=== PATIENT | female | born 1940 | race Caucasian/White ===

== ENCOUNTER → 2017-01-28 | Day surgery (SDC) | payer OTHER ==
[~2017-01-28] MED LIST: ACETAMINOPHEN/HYDROcodone 325 MG/5 MG TAB ONE; BACITRACIN IM FOR SOLN 50,000 UNIT VIAL ONE; BUPIVACAINE/EPINEPHRINE 0.25% 50 ML VIAL ONE; BUPIVACAINE/EPINEPHRINE 0.25% PF 10 ML VIAL ONE; GENTAMICIN SULFATE 80 MG/2 ML VIAL ONE; KETOROLAC TROMETHAMINE 30 MG/ML (IVP) VIAL IV PUSH ONE; LACTATED RINGER'S 1000 ML INJ 1,000 ML ONE; MEPERIDINE HCL 25 MG/ML VIAL ONE; METO25 PO; MORPHINE SULFATE 4 MG/ML INJ ONE; ONDANSETRON HCL 4 MG/2 ML VIAL IV PUSH ONE; PROPOFOL 100 MG/10 ML INJ IV ONE; SIMV40 PO; SODIUM CHLOR 0.9% 250 ML BAG IV ONE; SODIUM CHLORIDE 0.9% 20 ML VIAL ONE; VANCOMYCIN HCL 1000 MG VIAL ONE; ceFAZolin 2 GM PREMIX 50 ML ONE; ceFAZolin INJ 1,000 MG VIAL ONE
--- NOTE | 2017-01-28 09:12 | TN ---
cc: DANA MIGUEL M.D. DATE OF SURGERY 01/28/2017 PREOPERATIVE DIAGNOSIS Right knee medial compartment severe osteoarthritis, chondromalacia patella. POSTOPERATIVE DIAGNOSIS Right knee medial compartment severe osteoarthritis, chondromalacia patella. PROCEDURE Right knee medial unicondylar arthroplasty, partial patellectomy. SURGEON Mary Ellen Miguel MD ASSESSMENT Hollie Miguel MD COMMENT Tara Kulkarni PA-C SPECIMENS None ESTIMATED BLOOD LOSS Minimal COMPLICATIONS None ANESTHESIA General DRAINS One TOURNIQUET TIME 49 minutes 250 mmHg CONDITION Stable PLAN OF ACTIVITY Per orders. PROCEDURE My ex assistant/program director Adria Miguel MD was present for the entire surgical case. He was medically necessary for the entire case because of the complexity case and to facilitate the performance of the procedure. The MUSIC LEADER at the back table was not a skill set for this case to manipulate the instruments e.g. the multiple different types of soft tissue retractors, trial implants and permanent implants including bone cement. The patient brought into the operating room and had satisfactory general endotracheal anesthesia by Dr. Cuello of the Department of Anesthesia. The right lower extremity was prepped and draped in the usual sterile manner. The extremity was exsanguinated with an Vickey wrap, tourniquet was inflated to 250 mmHg. A small anterior medial exposure to the knee was made. A paramedian capsulotomy was performed. Patient was found to have chondromalacia involving the medial facette of patella. The patient was also found to have a moderate degree of synovitis. The patient also had what appeared to be possible synovial invasion of the articular surfaces. This was involving only the medial compartment and certain degrees of the femoral trochlear groove. The lateral compartment had no evidence of arthritic changes or synovial erosions. A partial patellectomy was performed using an oscillating saw and removing the medial facette of the patella. The remaining portion of the medial meniscus was removed. Using the [employer] unicondylar arthroplasty system, guide was used for a right medial femur to remove the posterior condyle which was approximately 6 mm. A bur was then used to contour the proximal tibia to accept a #1 6.5 mm tibial component. Since the patient was relatively neutral axis, great care was made to keep the patient in a relatively neutral axis. The distal femur was prepared to accept a #1 right medial femoral component. Trial reduction was made. The patient found to have excellent balance in both flexion/extension. All trial us removed and preparation for cementing was made. First, the tibial component was cemented which was a #1, 6.5 mm tibial component. One package of high viscosity bone cement by [employer] was used. Initially the tibial component was cemented by the femoral component which was a #1 right medial femoral component. All excess bone cement was removed. The bone cement was allowed to harden for 13 minutes. Tourniquet was deflated. All bleeders individually coagulated. The knee was irrigated with copious amounts of sterile saline antibiotic solution. The knee was also injected with 0.25% Marcaine with epinephrine to provide postoperative hemostasis and also analgesia. The wound was closed with an eighth inch Hemovac drain. The capsule was repaired using multiple interrupted #2 Tycron sutures, subcuticular tissues closed in layers with 2-0 Vicryl. Skin was approximated with running subcuticular 3-0 Vicryl and Steri-Strips were used and sterile dressings were applied. The patient tolerated the procedure well and arrived in the recovery room in stable and satisfactory condition. MD IVELISSE Gordon/SUSI /8:49 AM /9:02 AM
== END | disposition home or self-care (01) ==
LOC: ESDC 06:01
PROVIDERS: ATTEND Orthopaedic Surgery Orthopaedic Surgery of the Spine
DX: M17.11 Unilateral primary osteoarthritis, right knee (principal); M22.41 Chondromalacia patellae, right knee
CPT/HCPCS: 01400; 27446; C1776; J0690; J1580; J1885; J2175; J2270; J2405; J3010; J3370; J7050; J7120

== ENCOUNTER 2017-07-05 11:42 | Inpatient (IN) | payer OTHER, MEDICARE ==
[~2017-07-05] VITALS: Ht 165.1 cm; Wt 59.0 kg
[2017-07-05] VITALS (13 sets, daily range): BP systolic 125–179; BP diastolic 55–108; PULSE 76–110; RESP 14–24; TEMP 99.9–100.2; O2SAT 94–100
[~2017-07-05 11:42] MED LIST changes: -ACETAMINOPHEN/HYDROcodone 325 MG/5 MG TAB ONE; -BACITRACIN IM FOR SOLN 50,000 UNIT VIAL ONE; -BUPIVACAINE/EPINEPHRINE 0.25% 50 ML VIAL ONE; -BUPIVACAINE/EPINEPHRINE 0.25% PF 10 ML VIAL ONE; -GENTAMICIN SULFATE 80 MG/2 ML VIAL ONE; -KETOROLAC TROMETHAMINE 30 MG/ML (IVP) VIAL IV PUSH ONE; -LACTATED RINGER'S 1000 ML INJ 1,000 ML ONE; -MEPERIDINE HCL 25 MG/ML VIAL ONE; -MORPHINE SULFATE 4 MG/ML INJ ONE; -ONDANSETRON HCL 4 MG/2 ML VIAL IV PUSH ONE; -PROPOFOL 100 MG/10 ML INJ IV ONE; -SODIUM CHLOR 0.9% 250 ML BAG IV ONE; -SODIUM CHLORIDE 0.9% 20 ML VIAL ONE; -VANCOMYCIN HCL 1000 MG VIAL ONE; -ceFAZolin 2 GM PREMIX 50 ML ONE; -ceFAZolin INJ 1,000 MG VIAL ONE
[2017-07-05] MEDS ORDERED: SODIUM CHLOR 0.9% 1000 ML INJ 1,000 ML IV ONE (11:45)
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
--- NOTE | 2017-07-05 12:13 | RADRPT ---
EXAM DATE/TIME: 07/05/2017 11:58 [facility] COMPARISON: No previous studies available for comparison. INDICATIONS : Change mental status left side weakness. RADIATION DOSE: 52.13 CTDIvol (mGy) This report was called by 1210. MEDICAL HISTORY : Hypertension. SURGICAL HISTORY : Hysterectomy. Right knee ENCOUNTER: Initial ACUITY: 1 day PAIN SCALE: Non-responsive LOCATION: cranial TECHNIQUE: Multiple contiguous axial images were obtained of the head. Using automated exposure control and adj ustment of the mA and/or kV according to patient size, radiation dose was kept as low as reasonably a chievable to obtain optimal diagnostic quality images. DICOM format image data is available electro nically for review and comparison. FINDINGS: The study is abnormal. There is the very prominent cisterna magna or perhaps an arachnoid cyst in th e posterior fossa. The supratentorial brain shows moderate atrophy without acute infarct or hemorrhage. There is mild c entral and cortical atrophy. There are no extra-axial fluid collections appreciated. CONCLUSION: Negative for infarct or hemorrhage. Martinez Adame MD FACR on July 05, 2017 at 12:09 Board Certified Radiologist. This report was verified electronically.
[2017-07-05 12:15] LABS: I-STAT POTASSIUM 4.8 MMOL/L (3.5-4.9)
[2017-07-05 12:16] LABS: AUTOMATED NEUTROPHIL # 10.3 TH/MM3 (1.8-7.7); BASOPHIL # 0.1 TH/MM3 (0-0.2); BASOPHIL % 0.6 % (0.0-2.0); EOSINOPHIL # 0.1 TH/MM3 (0-0.4); EOSINOPHIL % 0.7 % (0.0-4.0); HEMATOCRIT 38.3 % (35.0-46.0); HEMO FLAGS DIFF FINAL; LYMPH % 9.6 % (9.0-44.0); LYMPHOCYTE # 1.2 TH/MM3 (1.0-4.8); MEAN CELL VOLUME 88.8 FL (80.0-100.0); MEAN CORPUSCULAR HGB CONC 32.6 % (32.0-36.0); MONO % 5.2 % (0.0-8.0); NEUT % 83.9 % (16.0-70.0); PLATELET COUNT 492 TH/MM3 (150-450); RED BLOOD COUNT 4.32 MIL/MM3 (4.00-5.30); RED CELL DISTRIBUTION WIDTH 18.3 % (11.6-17.2); WHITE BLOOD COUNT 12.2 TH/MM3 (4.0-11.0)
[2017-07-05] MEDS ORDERED: PROPOFOL 1000 MG/100 ML INJ 100 ML ONE (12:22)
[2017-07-05 12:31] LABS: APTT (PATIENT) 25.8 SEC (24.3-30.1); PROTHROMBIN TIME - PATIENT 11.4 SEC (9.8-11.6)
--- NOTE | 2017-07-05 13:05 | RADRPT ---
EXAM DATE/TIME: 07/05/2017 12:24 [facility] COMPARISON: CHEST SINGLE AP, August 28, 2016, 22:39. INDICATIONS : Stroke alert. MEDICAL HISTORY : Hypercholesterolemia. Hypertension SURGICAL HISTORY : Hysterectomy. right knee surgery ENCOUNTER: Initial ACUITY: 1 day PAIN SCORE: Non-responsive. LOCATION: Bilateral upper chest FINDINGS: ET tube in good position. Lungs are clear. The heart and pulmonary vascularity are normal. The porti on of the bony skeleton visualized is unremarkable. CONCLUSION: ET tube in good position. Martinez Adame MD FACR on July 05, 2017 at 13:03 Board Certified Radiologist. This report was verified electronically.
[2017-07-05 13:08] LABS: BACTERIA, URINE MOD /hpf; BLOOD, URINE TRACE (NEG); GLUCOSE,URINE NEG (NEG); KETONE, URINE NEG (NEG); MUCUS URINE FEW /lpf (OCC); NITRITE,URINE POS (NEG); URINE COLOR YELLOW (YELLW/STRAW)
[2017-07-05] MEDS ORDERED: PROPOFOL 1000 MG/100 ML INJ 100 ML IV SCH (13:13)
[2017-07-05] MEDS ORDERED: MAGNESIUM SULFATE INJ 2 GM in SODIUM CHLORIDE 0.9% INJ 96 ML IV PRN (13:15)
[2017-07-05] MEDS ORDERED: ONDANSETRON HCL 4 MG/2 ML VIAL IV PRN (13:15)
[2017-07-05] MEDS ORDERED: RESP: ALBUTEROL 2.5 MG/IPRATROPIUM 0.5 MG NEB (PRN) INH (13:15)
[2017-07-05] MEDS ORDERED: POTASSIUM PHOSPHATE MONOBASIC 500 MG TAB PO PRN (13:15)
[2017-07-05] MEDS ORDERED: POTASSIUM CHLOR 20 MEQ PREMIX 100 ML IV PRN (13:15)
[2017-07-05] MEDS ORDERED: MISCELLANEOUS NURSING INFORMATION XX SCH (13:15)
[2017-07-05] MEDS ORDERED: MAGNESIUM SULFATE INJ 4 GM in SODIUM CHLORIDE 0.9% INJ 92 ML IV PRN (13:15)
[2017-07-05] MEDS ORDERED: MAGNESIUM OXIDE 400 MG TAB PO PRN (13:15)
[2017-07-05] MEDS ORDERED: CHLORHEXIDINE GLUCONATE 2 % 1 PACK (2 CLOTHS) TOP PRN (13:15)
[2017-07-05] MEDS ORDERED: SODIUM PHOSPHATE INJ 30 MMOL in SODIUM CHLOR 0.9% 250 ML INJ 240 ML IV PRN (13:15)
[2017-07-05] MEDS ORDERED: POTASSIUM PHOSPHATE MONOBASIC 500 MG TAB PO/TUBE PRN (13:15)
[2017-07-05] MEDS ORDERED: DEXTROSE 50% IN WATER 50 ML VIAL(D50) IV PUSH PRN (13:15)
[2017-07-05] MEDS ORDERED: POTASSIUM PHOSPHATE INJ 30 MMOL in SODIUM CHLOR 0.9% 250 ML INJ 250 ML IV PRN (13:15)
[2017-07-05] MEDS ORDERED: MIDAZOLAM HCL 5 MG/ML VIAL (1 ML) ONE (13:26)
[2017-07-05] MEDS ORDERED: MIDAZOLAM HCL 5 MG/5 ML VIAL IV PUSH ONE (13:30)
[2017-07-05] MEDS ORDERED: METO25TA3 PO (13:34)
[2017-07-05] MEDS ORDERED: OMEP20TA PO (13:34)
[2017-07-05] MEDS ORDERED: SIMV40TA PO (13:34)
[2017-07-05] MEDS ORDERED: MIDAZOLAM 100 MG/100 ML INJ 100 ML IV PRN (13:37)
[2017-07-05] MEDS ORDERED: IOHEXOL 350 MG/ML 10 ML VIAL (for RAD DIAG) IVCONTRAST ONE (14:14)
[2017-07-05 14:25] LABS: BLOOD GAS BASE EXCESS 1.4 mmol/L (-2-2); BLOOD GAS CARBOXYHEMOGLOBIN 1.1 % (0-4); BLOOD GAS HCO3 24 mmol/L (22-26); BLOOD GAS METHEMOGLOBIN 0.7 % (0-2); BLOOD GAS O2 HGB SATURATION 99 % (90-100); BLOOD GAS OXYGEN CONTENT 16.7 Vol % (12.0-20.0); BLOOD GAS PCO2 31 mmHg (38-42); BLOOD GAS PO2 433 mmHG (61-120); BLOOD GAS TOTAL HGB 11.3 G/DL (12.0-16.0); CRITICAL VALUE NO; OXYGEN DEVICE VENTILATOR; TEMP CORR TO 98.6
[2017-07-05 14:26] LABS: DRAW SITE RT RADIAL; FIO2 100 %; NUMBER OF ARTERIAL PUNCTURES 1; STAT NO; ULNAR PULSE PRESENT; VENT SETTINGS AC/RR14/VT550/PEEP5
--- NOTE | 2017-07-05 14:27 | MB ---
cc: GILMER TAN M.D. DATE OF CONSULTATION: 07/05/2017 HISTORY OF PRESENT ILLNESS The patient is a 77-year-old woman with an acute neurologic syndrome. A Stroke Alert was called. I spoke to Dr. Noel around 11:20 or 11:30. The onset of the symptoms is unclear but at about 8:42 she was normal this morning and about an hour later the patient was documented to have some neurological deficits. She came to the emergency room with a history of the left arm being flaccid initially, but she improved by the time she arrived in the ED. Nevertheless, she was dysarthric versus aphasic initially and a history could not be obtained promptly. She was taken to CT scan which was negative for any acute event. The patient has a large cisterna magna. She was back from CT and noted to have some rigidity, stiffness and even possible seizures involving the right-sided limbs. She was intubated at that point. They felt she was a possible candidate for intervention/TPA. At that point the family had been reached and Dr. Noel obtained a consent for TPA which is being given by the time I saw the patient in the emergency room. NEUROLOGICAL EXAMINATION The exam shows that the patient is now partially sedated, somewhat restless, moving all four extremities to stimulation, perhaps moving the right arm less than the left. The plantar responses are extensor bilaterally, perhaps right more promptly than left. The pupils are about the same, 3-4 mm and at least mildly reactive. She has relatively brief reflexes throughout. The eyes were in midline position. She is not following commands. She takes a baby aspirin and apparently takes a statin and metoprolol. No history of strokes or TIAs. IMAGING CT brain discussed above. LABORATORY Platelet count 492, WBC 12.2, hemoglobin 12.5. Sodium 136, glucose 189, BUN and creatinine normal. ASSESSMENT AND PLAN Acute cerebrovascular event. The exact anatomy is uncertain as the patient apparently started having symptoms involving the left arm and then had either severe dysarthria or aphasia and eventually as discussed above had some right-sided rigidity or even seizure-like activity. We felt TPA was reasonable and she was within the 4-1/2-hour span and TPA was initiated. I have discussed with the family member at the bedside and the patient is a possible candidate for intervention/embolectomy and we will obtain a CTA angio. The CT angio was actually attempted earlier but she did not have good venous access and the procedure was discontinued. I will follow the neurological course. Thank you for asking us to assist in her care. MD SILVIO Quinn/BT /1:40 PM /2:54 PM
[2017-07-05] MEDS: SODIUM CHLOR 0.9% 1000 ML INJ 1,000 ML IV SCH ×2 (15:00→23:00)
--- NOTE | 2017-07-05 15:12 | RADRPT ---
EXAM DATE/TIME: 07/05/2017 14:05 [facility] COMPARISON: CT BRAIN W/O CONTRAST, July 05, 2017, 11:58. INDICATIONS : Stroke alert, left sided weakness and altered mental status today. IV CONTRAST: 80 cc Omnipaque 350 (iohexol) IV RADIATION DOSE: 14.87 CTDIvol (mGy) MEDICAL HISTORY : Hypertension. SURGICAL HISTORY : Hysterectomy. ENCOUNTER: Initial ACUITY: 1 day PAIN SCALE: Non-responsive LOCATION: Bilateral head TECHNIQUE: Volumetric scanning was performed using a multi-row detector CT scanner. The data was post processed with a variety of visualization algorithms including full volume maximum intensity projection, multi -planar sliding thin slab reformation, curved planar reformation, and surface rendering techniques. Using automated exposure control and adjustment of the mA and/or kV according to patient size, radiat ion dose was kept as low as reasonably achievable to obtain optimal diagnostic quality images. DICO M format image data is available electronically for review and comparison. FINDINGS: There is complete occlusion of the left middle cerebral artery beyond the first temporal branch. The right middle cerebral artery and anterior cerebral arteries are patent. Examination of the posterior fossa demonstrates the left vertebral artery to be dominant. No aneurysm or vascular malformation is seen and no intracranial stenosis is identified. CONCLUSION: 1. 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 The patient is to undergo cerebral angiogra phy Stevie Valles MD on July 05, 2017 at 14:50 Board Certified Radiologist. This report was verified electronically.
[2017-07-05] MEDS ORDERED: MISCELLANEOUS NURSING INFORMATION XX PRN (15:15)
[2017-07-05] MEDS ORDERED: ALTEPLASE DRIP IV ONE (15:15)
[2017-07-05] MEDS ORDERED: SODIUM CHLORIDE 0.9% 50 ML BAG IVF ONE (15:15)
[2017-07-05] MEDS ORDERED: ALTEPLASE BOLUS 9 MG/9 ML SYR IV ONE (15:15)
[2017-07-05] MEDS ORDERED: VERAPAMIL HCL 5 MG/2 ML VIAL ONE (15:23)
--- NOTE | 2017-07-05 15:49 | RADRPT ---
EXAM DATE/TIME: 07/05/2017 14:05 [facility] COMPARISON: No previous studies available for comparison. INDICATIONS : Stroke alert, left sided weakness and altered mental status today. IV CONTRAST: 80 cc Omnipaque 350 (iohexol) IV RADIATION DOSE: 14.87 CTDIvol (mGy) MEDICAL HISTORY : Hypertension. SURGICAL HISTORY : Hysterectomy. ENCOUNTER: Initial ACUITY: 1 day PAIN SCALE: Non-responsive LOCATION: Bilateral neck Elevated flow velocities and ICA/CCA ratios have been found to correlate with increased degrees of vessel stenosis, calculated as percentage of diameter relative to a normal segment of distal ICA/CCA. TECHNIQUE: Volumetric scanning was performed using a multirow detector CT scanner. The data was post processed with a variety of visualization algorithms including full-volume maximum intensity projection, multip lanar sliding thin-slab reformation, curved-planar reformation, and surface-rendering techniques. Us ing automated exposure control and adjustment of the mA and/or kV according to patient size, radiatio n dose was kept as low as reasonably achievable to obtain optimal diagnostic quality images. DICOM f ormat image data is available electronically for review and comparison. FINDINGS: AORTIC ARCH: The thoracic aorta is tortuous and unwound. The left carotid arises from the non-artery. RIGHT CAROTID: Moderate calcification is seen at the origin of the right internal carotid without compromising the l umen by less than 50%. LEFT CAROTID: The left common carotid is intact. Calcification is seen at the origin of the left internal carotid and not felt to be significant. VERTEBRALS: The vertebral arteries have a symmetric diameter. No stenotic lesions are seen. CONCLUSION: Moderate calcification is present without evidence for hemodynamically significant st enosis. Martinez Adame MD FACR on July 05, 2017 at 15:45 Board Certified Radiologist. This report was verified electronically.
[2017-07-05] MEDS ORDERED: PROPOFOL 1000 MG/100 ML IV PRN (16:00)
--- NOTE | 2017-07-05 17:01 | RADRPT ---
EXAM DATE/TIME: 07/05/2017 15:07 This report includes an Addendum and supersedes previous reports for this exam. [facility] COMPARISON: No previous studies available for comparison. INDICATIONS : Patient who presents to ER with slurred speech. MEDICAL HISTORY : 1. TIA 2. HTN 3. high cholestrol SURGICAL HISTORY : 1. Hysterectomy ENCOUNTER: Initial ACUITY: 1 day PAIN SCORE: 0/10 FLUORO TIME: 11.2 minutes IMAGE SERIES: 6 ACCESS SITE: Right Femoral artery CONTRAST: 110 cc Visipaque (iodixanol) DEVICE(S): 1.) Right common femoral artery syvek Anesthesia and pain control was provided by the Anesthesia department. PROCEDURE : 1. Ultrasound-guided puncture of the access site. 2. Conscious sedation with continuous EKG and Oximetry monitoring. 3. Angiography of the left common carotid artery 4. Angiography of the right common carotid artery The risks, benefits and alternatives to the procedure were explained and verbal and written consent w as obtained. The site was prepped in sterile fashion. Full sterile technique was used, including ca p, mask, sterile gloves and gown and a large sterile sheet. Hand hygiene and 2% chlorhexidine and/or betadine/alcohol prep was utilized per protocol for cutaneous antisepsis. The skin and subcutaneous tissues were infiltrated with local anesthetic solution. With ultrasound and fluoroscopic guidance the selected artery was punctured and a vascular sheath was placed The patient 2 catheter was used to gain access to the left common carotid artery and AP, lateral and oblique runs were performed. The same catheter was then used to access the right common carotid arter y where similar runs were performed. The examination demonstrated normal right middle cerebral artery. On the left side there is a very sh ort and tortuous M2 segment accounting for the finding seen at CT angiography. No vessel thrombosis i dentified. The puncture site was closed with manual pressure and hemostasis was obtained. The patient tolerated the procedure well and there were no complications. Conscious sedation was performed with the prescribed dosages and duration as above in the presence of an independent trained radiology nurse to assist in the monitoring of the patient. EKG and oximetry remained stable throughout the procedure. CONCLUSION: 1. No evidence of vessel occlusion. Asymmetric no cerebral arteries as above Stevie Valles MD on July 05, 2017 at 16:58 Board Certified Radiologist. This report was verified electronically. ADDENDUM: Stenosis measurement is not required for the purposes of this study Stevie Valles MD on July 13, 2017 at 16:12 Board Certified Radiologist. This report was verified electronically.
[2017-07-05] MEDS: fentaNYL DRIP 250 ML IV PRN (17:24)
--- NOTE | 2017-07-05 17:39 | PD.RAD ---
Post Procedure Progress Note Pre Procedure Diagnosis: (1) Dysarthria Post Procedure Diagnosis: (1) Dysarthria Procedure Date: Jul 05, 2017 Supervising Radiologist: Stevie Valles Proceduralist/Assist: RT Teresa(R)() Anesthesia: General Plan of Activity Patient to Unit: Critical Care Patient Condition: Poor See PACS Report for procedural detail/treatment Vascular-Arterial Procedure Procedure 1 Procedure Site: Cerebral Procedure(s): Angiogram Procedure 3 Procedure Site: Right Leg Access Access Site(s): Right Femoral Artery Closure Site(s): Right manual pressure Vascular-Venous Procedure Procedure 1 Procedure Site: Right Leg Access Access Site(s): Right Femoral Vein Findings: central liner placement Stevie Valles MD Jul 05, 2017 17:39
[2017-07-05] MEDS: INSULIN NovoLIN REGULAR SUPPLEMENTAL SCALE SQ SCH (18:00)
[2017-07-05] MEDS: CHLORHEXIDINE 0.12% (ORAL KIT) 15 ML CUP MT SCH (20:00)
[2017-07-05] MEDS: DOCUSATE SODIUM 50 MG/SENNA 8.6 MG TAB PO SCH (20:14)
[2017-07-05] MEDS: RESP: ALBUTEROL 2.5 MG/IPRATROPIUM 0.5 MG NEB (SCH) INH (20:14)
[2017-07-05] MEDS: FAMOTIDINE 20 MG/2 ML VIAL IV PUSH SCH (20:14)
--- NOTE | 2017-07-05 20:26 | HHI.HP ---
HPI Service Critical Care Medicine Primary Care Physician Unknown Admission Diagnosis CVA, dysarthria, altered mental status Diagnosis: Chief Complaint: weakness Travel History International Travel<30 Days: No Contact w/Intl Traveler <30 Da: No Traveled to Known Affected Are: No History of Present Illness This is a 77-year-old female with a history of hypertension and hypercholesterolemia who presented to the emergency department as a stroke alert. When I evaluated the patient she was artery intubated and sedated and no additional information is obtainable from her. Per chart review and my discussions with the emergency department physician, apparently she was noted at 10 AM to suddenly to become confused and have slurred speech. Initially she was not able move her left upper extremity, but in the emergency department she was noted to be moving her left upper extremity. She continued to have dysarthria. Noncontrasted head CT demonstrated no acute head bleed and she was given IV TPA after discussion of risks and benefits in the emergency department. She then underwent CT angiography which demonstrated a flow void in the left MCA. She was then taken emergently to interventional radiology, but no evidence of thrombus was seen in order to perform mechanical thrombectomy. She arrives today surgical ICU in critical condition, intubated, sedated. Review of Systems ROS Limitations: Clinical Condition, Intubated, Altered Mental Status Past Family Social History Allergies: Coded Allergies: No Known Allergies (Unverified , 08/28/16) Past Medical History Unobtainable from the patient due to her clinical condition. Per chart review: Hypertension Hypercholesterolemia Past Surgical History Unobtainable from the patient due to her clinical condition. Per chart review: Hysterectomy Reported Medications Complete home medication list is unobtainable due to the clinical condition of the patient. Per chart review: Simvastatin 40 mg (Simvastatin) 40 Mg Tab 1 Tab PO HS Metoprolol Tartrate 25 mg (Metoprolol Tartrate) 25 Mg Tab 25 Mg PO BID Active Ordered Medications See MAR Family History Unable to obtain secondary to clinical condition the patient. Social History Unable to be obtained secondary to the clinical condition the patient. Per chart review: Denied tobacco, EtOH, drugs of abuse. Physical Exam Vital Signs Vital Signs Date Time Temp Pulse Resp B/P (MAP) Pulse Ox O2 Delivery O2 Flow Rate FiO2 07/05/17 18:00 81 07/05/17 18:00 81 07/05/17 17:25 07/05/17 16:45 98 Mechanical Ventilator 40 07/05/17 16:45 40 07/05/17 16:45 90 07/05/17 16:45 90 07/05/17 16:45 99.9 90 14 178/98 (124) 99 07/05/17 15:30 100 100 07/05/17 15:16 97 14 161/85 (110) 98 Ventilator 07/05/17 15:15 98 Ventilator 07/05/17 15:15 98 Ventilator 07/05/17 14:54 98 40 07/05/17 13:14 100 07/05/17 12:43 88 14 179/108 (131) 100 Ventilator 07/05/17 12:20 98 100 07/05/17 11:46 110 24 140/93 (109) 94 Physical Exam GENERAL: Elderly female, in distress, intubated, sedated HEENT: Normocephalic. Atraumatic. Pupils equal, round, reactive, conjugate. Mucous membranes are moist NECK: Trachea is midline. There is no JVD. CHEST: Equal chest rise. FiO2 40%. Clear to auscultation. CARDIOVASCULAR: Normal rate, regular rhythm. Blood pressure 160 systolic. ABDOMEN: Soft, nontender, nondistended. No guarding. MUSCULOSKELETAL: Pulses 2+. No peripheral edema. NEUROLOGICAL: RASS -3. Sedated with Versed and fentanyl. Localizes the left upper extremity. Flaccid in the right upper extremity. Withdrawals and bilateral lower extremities. Laboratory Laboratory Tests Test 07/05/17 12:00 07/05/17 12:38 07/05/17 13:10 07/05/17 17:45 White Blood Count 12.2 Red Blood Count 4.32 Hemoglobin 12.5 Bedside Hemoglobin 13.6 Hematocrit 38.3 Bedside Hematocrit 40.0 Mean Corpuscular Volume 88.8 Mean Corpuscular Hemoglobin 29.0 Mean Corpuscular Hemoglobin Concent 32.6 Red Cell Distribution Width 18.3 Platelet Count 492 Mean Platelet Volume 7.7 Neutrophils (%) (Auto) 83.9 Lymphocytes (%) (Auto) 9.6 Monocytes (%) (Auto) 5.2 Eosinophils (%) (Auto) 0.7 Basophils (%) (Auto) 0.6 Neutrophils # (Auto) 10.3 Lymphocytes # (Auto) 1.2 Monocytes # (Auto) 0.6 Eosinophils # (Auto) 0.1 Basophils # (Auto) 0.1 CBC Comment DIFF FINAL Differential Comment Prothrombin Time 11.4 Prothromb Time International Ratio 1.0 Activated Partial Thromboplast Time 25.8 Fibrinogen 432 Bedside Sodium 136 Bedside Potassium 4.8 Bedside Chloride 100 Bedside Blood Urea Nitrogen 21 Bedside Creatinine 0.7 Bedside Glucose 189 Total Creatine Kinase 74 Troponin I 0.03 Urine Color YELLOW Urine Turbidity HAZY Urine pH 7.0 Urine Specific [place] 1.014 Urine Protein 30 Urine Glucose (UA) NEG Urine Ketones NEG Urine Occult Blood TRACE Urine Nitrite POS Urine Bilirubin NEG Urine Urobilinogen LESS THAN 2.0 Urine Leukocyte Esterase NEG Urine RBC 4 Urine WBC 4 Urine Bacteria MOD Urine Mucus FEW Urine Opiates Screen NEG Urine Barbiturates Screen NEG Urine Amphetamines Screen NEG Urine Benzodiazepines Screen NEG Urine Cocaine Screen NEG Urine Cannabinoids Screen NEG Blood Gas Puncture Site RT RADIAL Blood Gas Patient Temperature 98.6 Blood Gas HCO3 24 Blood Gas Base Excess 1.4 Blood Gas Oxygen Saturation 99 Arterial Blood pH 7.50 Arterial Blood Partial Pressure CO2 31 Arterial Blood Partial Pressure O2 433 Arterial Blood Oxygen Content 16.7 Arterial Blood Carboxyhemoglobin 1.1 Arterial Blood Methemoglobin 0.7 Blood Gas Hemoglobin 11.3 Oxygen Delivery Device VENTILATOR Blood Gas Ventilator Setting AC/RR14/VT550/PEEP5 Blood Gas Inspired Oxygen 100 Result Diagram: 07/05/17 1200 Imaging Last Impressions Neck CTA 07/05/17 0000 Draft Impressions: Service Date/Time: Wednesday, July 05, 2017 14:05 - CONCLUSION: Moderate calcification is present without evidence for hemodynamically significant stenosis. Martinez Adame MD FACR Head CTA 07/05/17 0000 Signed Impressions: Service Date/Time: Wednesday, July 05, 2017 14:05 - CONCLUSION: 1. 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 The patient is to undergo cerebral angiography Stevie Valles MD Head CT 07/05/17 0000 Signed Impressions: Service Date/Time: Wednesday, July 05, 2017 11:58 - CONCLUSION: Negative for infarct or hemorrhage. Martinez Adame MD FACR Chest X-Ray 07/05/17 0000 Signed Impressions: Service Date/Time: Wednesday, July 05, 2017 12:24 - CONCLUSION: ET tube in good position. Martinez Adame MD FACR Cerebral Arteriogram 07/05/17 0000 Signed Impressions: Service Date/Time: Wednesday, July 05, 2017 15:07 - CONCLUSION: 1. No evidence of vessel occlusion. Asymmetric no cerebral arteries as above MD Yusra Rankin VTE Risk Assessment [place] VTE Risk Assessment: Mod/High Risk (score >= 2) VTE Pharm Contraindication: High risk for bleeding Caprini Risk Assessment Model Point Value = 1 Point Value = 2 Point Value = 3 Point Value = 5 Age 41-60 Minor surgery BMI > 25 kg/m2 Swollen legs Varicose veins or History of unexplained or recurrent spontaneous Oral contraceptives or hormone replacement Sepsis (< 1 month) Serious lung disease, including pneumonia (< 1 month) Abnormal pulmonary function Acute myocardial infarction Congestive heart failure (< 1 month) History of inflammatory bowel disease Medical patient at bed rest Age 61-74 Arthroscopic surgery Major open surgery (> 45 min) Laparoscopic surgery (> 45 min) Malignancy Confined to bed (> 72 hours) Immobilizing plaster cast Central venous access Age >= 75 History of VTE Family history of VTE Factor V Leiden Prothrombin [id number] Lupus anticoagulant Anticardiolipin antibodies Elevated serum homocysteine Heparin-induced thrombocytopenia Other congenital or acquired thrombophilia Stroke (< 1 month) Elective arthroplasty Hip, pelvis, or leg fracture Acute spinal cord injury (< 1 month) Prophylaxis Regimen Total Risk Factor Score Risk Level Prophylaxis Regimen 0-1 Low Early ambulation 2 Moderate Order ONE of the following: *Sequential Compression Device (SCD) *Heparin 5000 units SQ BID 3-4 Higher Order ONE of the following medications: *Heparin 5000 units SQ TID *Enoxaparin/Lovenox 40 mg SQ daily (WT < 150 kg, CrCl > 30 mL/min) *Enoxaparin/Lovenox 30 mg SQ daily (WT < 150 kg, CrCl > 10-29 mL/min) *Enoxaparin/Lovenox 30 mg SQ BID (WT < 150 kg, CrCl > 30 mL/min) AND/OR *Sequential Compression Device (SCD) 5 or more Highest Order ONE of the following medications: *Heparin 5000 units SQ TID (Preferred with Epidurals) *Enoxaparin/Lovenox 40 mg SQ daily (WT < 150 kg, CrCl > 30 mL/min) *Enoxaparin/Lovenox 30 mg SQ daily (WT < 150 kg, CrCl > 10-29 mL/min) *Enoxaparin/Lovenox 30 mg SQ BID (WT < 150 kg, CrCl > 30 mL/min) AND *Sequential Compression Device (SCD) Assessment and Plan Assessment and Plan Assessment: This is a 77-year-old female with an acute left MCA CVA status post systemic IV TPA and failed mechanical thrombectomy. She is critically ill this time. We will monitor her with frequent neuro checks and repeat head CT 24 hours after TPA. Plan by systems: Neurologic: Acute left MCA CVA status post systemic TPA Failed attempt at mechanical thrombectomy Concern for possible Seizure activity - frequent neuro checks - repeat interval head CT - neuro consult - portable EEG Respiratory: Acute hypoxic and hypercarbic respiratory failure - no sbt today given acute cva. - avoid hypercarbia - wean fio2 for spo2 > 90% - hob at 30 degrees, nebs, vent bundle Cardiovascular: History of Hypertension History of Hyperlipidemia - AM lipid panel - needs ASA after TPA window - 2d echo - Permissive hypertension, goal SBP less than 180 - labetalol, hydralazine and cardene prn. Renal: - Barry for accurate I/Os -- Strict I/Os FEN/GI: Acute protein calorie malnutrition- moderate - NPO - ICU electrolyte protocol - daily bmp - NS @ 84cc/hr. - prevent hypovolemia. Heme/ID: - no infectious etiologies at this time - no transfusion requirements - daily cbc Endocrine: Hyperglycemia of critical illness -- SSI, medium scale, every 6 Prophylaxis: GI Prophylaxis - Pepcid DVT Prophylaxis -- SCDs - hold pharmacologic DVT prophylaxis while in TPA window. plan to restart tomorrow. Lines: - Peripheral IVs - Barry Dispo: - Admit to ICU. Critically ill This patient remains critically ill with one or more organ systems which are or may become a threat to life. I have spent in excess of 51 minutes discontinuously in the care and management of this patient. This time is exclusive of procedures, and includes, but is not limited to, evaluation of the patient, review of the medical record, discussions with family, consultants, nursing staff, or respiratory therapy, and documentation in the medical record. Code Status Full Code Antony Malave MD Jul 05, 2017 20:26
[2017-07-05 23:18] LABS: MAGNESIUM 1.7 MG/DL (1.5-2.5); POTASSIUM 3.3 MEQ/L (3.5-5.1)
[2017-07-05] MEDS: POTASSIUM CHLOR 40 MEQ PREMIX 100 ML IV PRN (23:25)
[2017-07-06] VITALS (19 sets, daily range): BP systolic 100–150; BP diastolic 49–75; PULSE 74–117; RESP 14–37; TEMP 98.4–99.8; O2SAT 94–100
[2017-07-06] MEDS: SODIUM CHLOR 0.9% 1000 ML INJ 1,000 ML IV SCH ×3 (02:13→17:18)
[2017-07-06] MEDS: RESP: ALBUTEROL 2.5 MG/IPRATROPIUM 0.5 MG NEB (SCH) INH ×4 (03:40→20:38)
[2017-07-06] MEDS: CHLORHEXIDINE GLUCONATE 2 % 1 PACK (2 CLOTHS) TOP SCH (04:00)
--- NOTE | 2017-07-06 05:02 | RADRPT ---
EXAM DATE/TIME: 07/06/2017 04:18 [facility] COMPARISON: CHEST SINGLE AP, July 05, 2017, 12:24. INDICATIONS : Short of breath. MEDICAL HISTORY : Hypercholesterolemia. Hypertension SURGICAL HISTORY : Hysterectomy. right knee surgery ENCOUNTER: Subsequent ACUITY: 2 days PAIN SCORE: Non-responsive. LOCATION: Bilateral chest FINDINGS: Portable AP view of the chest demonstrates a normal-sized cardiac silhouette. ETT and nasogastric tub e remain present. No effusion, consolidation, or pneumothorax is identified. Multiple lines overlie t he patient. CONCLUSION: No acute cardiopulmonary abnormality is identified. Rylan Dorantes MD on July 06, 2017 at 5:00 Board Certified Radiologist. This report was verified electronically.
[2017-07-06 05:18] LABS: MEAN CORPUSCULAR HEMOGLOBIN 29.4 PG (27.0-34.0); PLATELET COUNT 286 TH/MM3 (150-450); RED BLOOD COUNT 3.26 MIL/MM3 (4.00-5.30); RED CELL DISTRIBUTION WIDTH 18.4 % (11.6-17.2); REVIEW FLAG FINAL; WHITE BLOOD COUNT 9.4 TH/MM3 (4.0-11.0)
[2017-07-06 05:29] LABS: BICARBONATE 23.2 MEQ/L (21.0-32.0); POTASSIUM 3.8 MEQ/L (3.5-5.1)
[2017-07-06] MEDS: INSULIN NovoLIN REGULAR SUPPLEMENTAL SCALE SQ SCH ×4 (05:49→18:00)
[2017-07-06] MEDS: CHLORHEXIDINE 0.12% (ORAL KIT) 15 ML CUP MT SCH ×2 (08:00→20:00)
--- NOTE | 2017-07-06 08:02 | HHI.CCPN ---
Subjective Remarks/Hospital Course This is a 77-year-old female with a history of hypertension and hypercholesterolemia who presented to the emergency department as a stroke alert. When I evaluated the patient she was artery intubated and sedated and no additional information is obtainable from her. Per chart review and my discussions with the emergency department physician, apparently she was noted at 10 AM to suddenly to become confused and have slurred speech. Initially she was not able move her left upper extremity, but in the emergency department she was noted to be moving her left upper extremity. She continued to have dysarthria. Noncontrasted head CT demonstrated no acute head bleed and she was given IV TPA after discussion of risks and benefits in the emergency department. She then underwent CT angiography which demonstrated a flow void in the left MCA. She was then taken emergently to interventional radiology, but no evidence of thrombus was seen in order to perform mechanical thrombectomy. She arrives today surgical ICU in critical condition, intubated, sedated. 07/06: Ongoing neurological workup. Will lighten sedation and reassess right sided strength. Watch for seizures. Update 1700 hours: No confirmed seizure activity. Received tPA after acute left arm weakness and slurred speech with normal CT Head. CTA head did not show any clot for retrieval. Hand grasp left arm strong today. Moves both legs. Objective Vital Signs Date Time Temp Pulse Resp B/P (MAP) Pulse Ox O2 Delivery O2 Flow Rate FiO2 07/06/17 06:00 80 07/06/17 04:05 100 40 07/06/17 04:00 99.2 14 137/61 (86) 07/05/17 20:00 Mechanical Ventilator Intake and Output 07/06/17 07/06/17 07/07/17 08:00 16:00 00:00 Intake Total 2996 ml Output Total 872 ml Balance 2124 ml Result Diagram: 07/06/17 0442 07/06/17 0442 Other Results Laboratory Tests Test 07/05/17 13:10 Blood Gas Puncture Site RT RADIAL Blood Gas Patient Temperature 98.6 Blood Gas HCO3 24 mmol/L (22-26) Blood Gas Base Excess 1.4 mmol/L (-2-2) Blood Gas Oxygen Saturation 99 % (90-100) Arterial Blood pH 7.50 (7.380-7.420) Arterial Blood Partial Pressure CO2 31 mmHg (38-42) Arterial Blood Partial Pressure O2 433 mmHG (61-120) Arterial Blood Oxygen Content 16.7 Vol % (12.0-20.0) Arterial Blood Carboxyhemoglobin 1.1 % (0-4) Arterial Blood Methemoglobin 0.7 % (0-2) Blood Gas Hemoglobin 11.3 G/DL (12.0-16.0) Oxygen Delivery Device VENTILATOR Blood Gas Ventilator Setting AC/RR14/VT550/PEEP5 Blood Gas Inspired Oxygen 100 % Imaging Last Impressions Neck CTA 07/05/17 0000 Draft Impressions: Service Date/Time: Wednesday, July 05, 2017 14:05 - CONCLUSION: Moderate calcification is present without evidence for hemodynamically significant stenosis. Martinez Adame MD FACR Head CTA 07/05/17 0000 Signed Impressions: Service Date/Time: Wednesday, July 05, 2017 14:05 - CONCLUSION: 1. 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 The patient is to undergo cerebral angiography Stevie Valles MD Head CT 07/05/17 Signed Impressions: Service Date/Time: Wednesday, July 05, 2017 11:58 - CONCLUSION: Negative for infarct or hemorrhage. Martinez Adame MD FACR Chest X-Ray 07/05/17 0000 Signed Impressions: Service Date/Time: Wednesday, July 05, 2017 12:24 - CONCLUSION: ET tube in good position. Martinez Adame MD FACR Cerebral Arteriogram 07/05/17 0000 Signed Impressions: Service Date/Time: Wednesday, July 05, 2017 15:07 - CONCLUSION: 1. No evidence of vessel occlusion. Asymmetric no cerebral arteries as above Stevie Valles MD Objective Remarks GENERAL: Elderly female, intubated, sedated HEENT: Normocephalic. Atraumatic. Pupils equal, round, reactive, conjugate. Mucous membranes are moist NECK: Trachea is midline. Orally intubated. CHEST: Equal chest rise. FiO2 40%. Clear to auscultation. CARDIOVASCULAR: Normal rate, regular rhythm. Blood pressure 160s ABDOMEN: Soft, nontender, nondistended. No guarding. BS active. MUSCULOSKELETAL: Pulses 2+. No peripheral edema. Well perfused. NEUROLOGICAL: Lightly sedated with Versed and fentanyl. Localizes the left upper extremity. Flaccid in the right upper extremity. Withdrawals and bilateral lower extremities. CHRISTOPHER. Cough intact. A/P Assessment and Plan Assessment: This is a 77-year-old female with an acute left MCA CVA status post systemic IV TPA and failed mechanical thrombectomy. She is critically ill this time. We will monitor her with frequent neuro checks and repeat head CT 24 hours after TPA. Plan by systems: Neurologic: Acute left MCA CVA status post systemic TPA Failed attempt at mechanical thrombectomy Concern for possible Seizure activity - frequent neuro checks - repeat interval head CT - neuro consult - portable EEG Respiratory: Acute hypoxic and hypercarbic respiratory failure - no sbt today given acute cva. - avoid hypercarbia - wean fio2 for spo2 > 90% - hob at 30 degrees, nebs, vent bundle -Lighten sedation. Cardiovascular: History of Hypertension History of Hyperlipidemia - AM lipid panel - needs ASA after TPA window - 2d echo - Permissive hypertension, goal SBP less than 180 - labetalol, hydralazine and cardene prn. Renal: - Barry for accurate I/Os -- Strict I/Os FEN/GI: Acute protein calorie malnutrition- moderate - NPO - ICU electrolyte protocol - daily bmp - NS @ 84cc/hr. - prevent hypovolemia. Heme/ID: - no infectious etiologies at this time - no transfusion requirements - daily cbc Endocrine: Hyperglycemia of critical illness -- SSI, medium scale, every 6 Prophylaxis: GI Prophylaxis - Pepcid DVT Prophylaxis -- SCDs - hold pharmacologic DVT prophylaxis while in TPA window. plan to restart tomorrow. Lines: - Peripheral IVs - Barry Dispo: - Remain in ICU following severe Left MCA CVA. Critically ill This patient remains critically ill with one or more organ systems which are or may become a threat to life. I have spent 35 minutes discontinuously in the care and management of this patient. This time is exclusive of procedures, and includes, but is not limited to, evaluation of the patient, review of the medical record, discussions with family, consultants, nursing staff, or respiratory therapy, and documentation in the medical record. Jos eLuis Dacosta MD Jul 06, 2017 08:02
[2017-07-06] MEDS: hydrALAZINE HCL 20 MG/ML VIAL IV PUSH PRN (08:31)
[2017-07-06] MEDS: hydrALAZINE HCL 25 MG TAB PO SCH ×3 (08:45→21:58)
[2017-07-06] MEDS: METOPROLOL TARTRATE 25 MG TAB PO SCH ×2 (09:09→21:00)
[2017-07-06] MEDS: DOCUSATE SODIUM 50 MG/SENNA 8.6 MG TAB PO SCH ×2 (09:09→21:00)
[2017-07-06] MEDS: FAMOTIDINE 20 MG/2 ML VIAL IV PUSH SCH ×2 (09:10→21:31)
[2017-07-06] MEDS: fentaNYL DRIP 250 ML IV PRN (09:10)
--- NOTE | 2017-07-06 10:43 | RADRPT ---
EXAM DATE/TIME: 07/05/2017 17:01 [facility] COMPARISON: No previous studies available for comparison. INDICATIONS : Patient for stroke alert needs good access. MEDICAL HISTORY : 1. HTN 2. TIA SURGICAL HISTORY : 1. Hysterectomy ENCOUNTER: Initial ACUITY: 1 day PAIN SCORE: 0/10 FLUORO TIME: 11.2 minutes IMAGE SERIES: 0 ACCESS: Right femoral vein DEVICE(S): 1.) 7 Turkmen triple lumen 20 cm Arrow central line PROCEDURE : 1. Ultrasound guided venipuncture. 2. Fluoroscopic guidance. 3. Central line placement. The risks, benefits and alternatives to the procedure were explained and verbal and written consent w as obtained. The site was prepped in sterile fashion. Full sterile technique was used, including ca p, mask, sterile gloves and gown and a large sterile sheet. Hand hygiene and 2% chlorhexidine prep w as utilized per protocol for cutaneous antisepsis with appropriate dry time for site. Sterile gel an d sterile probe cover were utilized for ultrasound guidance. The skin and subcutaneous tissues were infiltrated with local anesthetic solution. A suitable site a mary the vein was selected with ultrasound and fluoroscopic guidance. A small incision was made. Th e vein was accessed under direct ultrasound visualization using the micropuncture technique. The estrellita ropuncture set was exchanged for a 0.035 wire. The tract was dilated. The catheter was advanced int o position under direct fluoroscopic visualization. The catheter was fixed in place with suture and a sterile dressing was applied. The patient tolerated the procedure well and there were no complications. CONCLUSION: Uncomplicated line placement as above. Stevie Valles MD on July 06, 2017 at 10:40 Board Certified Radiologist. This report was verified electronically.
--- NOTE | 2017-07-06 11:19 | MG ---
cc: NINA XAVIER M.D. Lab No: [id number] Date: 07/06/2017 Age: 77 Sex: F Race: __ DATE OF [address] Willingham TECHNIQUE Photic done. No hyperventilation. MEDICATIONS On 25 mcg of Diprivan and 75 mcg of fentanyl. INDICATIONS Intubated CTA shows complete occlusion of the left MCA, presented in the ED as a stroke alert, confused with slurred speech, history of hypertension, stroke, hyperlipidemia. DESCRIPTION OF RECORD Overall background slowing predominant of 2-3 Hz. EKG looks to be in atrial fibrillation versus other dysrhythmia. Photic stimulation, there is a lot of artifact from the nurses touching the patient and the leads towards the midportion. Photic stimulation performed. I do not appreciate any driving response. IMPRESSION Abnormal EEG due to moderate background slowing consistent with an encephalopathic process. No evidence of any epileptic activity. Clinical correlation. MD JOSE Austin/SUSI /11:03 AM /11:10 AM
--- NOTE | 2017-07-06 15:07 | RADRPT ---
EXAM DATE/TIME: 07/06/2017 14:51 [place] COMPARISON: CTA BRAIN W 3D RECON, July 05, 2017, 14:05. CT BRAIN W/O CONTRAST, July 05, 2017, 11:58. INDICATIONS : Follow up stroke. RADIATION DOSE: 56.35 CTDIvol (mGy) MEDICAL HISTORY : Hypertension. SURGICAL HISTORY : None. ENCOUNTER: Subsequent ACUITY: 2 days PAIN SCALE: Non-responsive LOCATION: cranial TECHNIQUE: Multiple contiguous axial images were obtained of the head. Using automated exposure control and adj ustment of the mA and/or kV according to patient size, radiation dose was kept as low as reasonably a chievable to obtain optimal diagnostic quality images. DICOM format image data is available electro nically for review and comparison. FINDINGS: The calvarium remains intact. Noted are small air fluid levels in the posterior right maxillary sinus and in the left sphenoid sinus compartment. Intracranially again noted is prominent CS F space in the posterior fossa most likely representing cisterna magna magna or arachnoid cyst. Supra tentorially there is atrophy with mild ischemic deep white matter demyelinization. CONCLUSION: Stable CT brain scan intracranially with no acute change. Small air-fluid levels posteriorly in right maxillar y sinus and left sphenoid sinus compartment which could represent acute sinusitis. Venu Grewal MD on July 06, 2017 at 15:01 Board Certified Radiologist. This report was verified electronically.
--- NOTE | 2017-07-06 15:15 | EKG ---
Date Performed: 07/05/2017 Time Performed: 13:08:44 PTAGE: 77 years EKG: Sinus rhythm with frequent premature atrial and ventricular contractions MODERATE VOLTAGE CRITERIA FOR LVH, CONSI GHANSHYAM NORMAL VARIANT MINIMAL ST DEPRESSION ABNORMAL RHYTHM ECG NO PREVIOUS TRACING DOCTOR: Grace Hagen Interpretating Date/Time 07/06/2017 15:14:04
--- NOTE | 2017-07-06 21:14 | HHI.PR ---
Review/Management Daily Summary 07/06 neuro hebert she was extubated and agitated but calmed down and followed commands moves 4 limbs well verbalizes words aware of children at bedside markedly improved!!! discussed with jonathan rodarte yesterday will add asa, status post tpa when more stable mri brain f/u ct negative Subjective Subjective Comments family at bedside Active Medications Current Medications Medications (Trade) Dose Ordered Sig/Peyman Route Start Time Stop Time Status Last Admin (Trandate Inj) 20 mg Q15M PRN IV PUSH 07/05/17 13:15 (Apresoline Inj) 10 mg Q30M PRN IV PUSH 07/05/17 13:15 07/06/17 08:31 (Mag-Ox) 800 mg UNSCH PRN PO 07/05/17 13:15 Magnesium Sulfate 4 gm/Sodium Chloride 100 ml @ 50 mls/hr UNSCH PRN IV 07/05/17 13:15 Magnesium Sulfate 2 gm/Sodium Chloride 100 ml @ 50 mls/hr UNSCH PRN IV 07/05/17 13:15 Potassium Chloride 100 ml @ 50 mls/hr Q2H PRN IV 07/05/17 13:15 Potassium Chloride 100 ml @ 50 mls/hr Q2H PRN IV 07/05/17 13:15 Potassium Chloride 100 ml @ 50 mls/hr Q2H PRN IV 07/05/17 13:15 Potassium Chloride 100 ml @ 25 mls/hr UNSCH PRN IV 07/05/17 13:15 07/05/17 23:25 (K-Phos) 2,000 mg Q4H PRN PO 07/05/17 13:15 (K-Phos) 2,000 mg UNSCH PRN PO/TUBE 07/05/17 13:15 Potassium Phosphate 30 mmol/ Sodium Chloride 260 ml @ 42 mls/hr UNSCH PRN IV 07/05/17 13:15 Sodium Phosphate 30 mmol/Sodium Chloride 250 ml @ 42 mls/hr UNSCH PRN IV 07/05/17 13:15 (Peridex 0.12% Liq) 15 ml BID@08,20 MT 07/05/17 20:00 07/06/17 08:00 (D50w (Vial) Inj) 25 ml UNSCH PRN IV PUSH 07/05/17 13:15 (NovoLIN R SUPPLEMENTAL SCALE) 1 Q6HR SQ 07/05/17 18:00 (Duoneb Neb) 1 ampule Q6HR NEB INH 07/05/17 16:00 07/06/17 20:38 (Duoneb Neb) 1 ampule Q2HR NEB PRN INH 07/05/17 13:15 Sodium Chloride 1,000 ml @ 60 mls/hr [id number] IV 07/05/17 15:00 07/06/17 17:18 (Pepcid Inj) 20 mg Q12HR IV PUSH 07/05/17 21:00 07/06/17 09:10 (Zofran Inj) 4 mg Q6H PRN IV 07/05/17 13:15 Miscellaneous Information 1 Q361D XX 07/05/17 13:15 07/06/17 04:47 (Chlorhexidine 2% Cloth) 3 pack Taper DAILY@04 TOP 07/06/17 04:00 07/02/18 03:59 07/06/17 04:00 (Chlorhexidine 2% Cloth) 3 pack UNSCH PRN TOP 07/05/17 13:15 (Anita-Colace) 1 tab BID PO 07/05/17 21:00 07/06/17 09:09 Midazolam HCl 100 ml @ 2 mls/hr Q50H PRN IV 07/05/17 13:37 Fentanyl Citrate 250 ml @ 5 mls/hr Q50H PRN IV 07/05/17 13:37 07/06/17 09:10 Propofol 100 ml @ 1.8 mls/hr TITRATE PRN IV 07/05/17 16:00 07/05/17 20:14 (Apresoline) 25 mg Q8HR PO 07/06/17 08:45 (Lopressor) 12.5 mg Q12HR PO 07/06/17 09:00 07/06/17 09:09 (Aspirin Supp) 300 mg DAILY RECTAL 07/07/17 09:00 Allergies Allergies Coded Allergies No Known Allergies ([id number]/21/16) Exam I&O / VS 07/06/17 07/06/17 07/07/17 15:00 23:00 07:00 Intake Total 352.3 ml 681.4 ml Output Total 1130 ml Balance 352.3 ml -448.6 ml Intake IV Total 352.3 ml 681.4 ml Output Urine Total 1130 ml # Bowel Movements 0 Vital Signs Date Time Temp Pulse Resp B/P (MAP) Pulse Ox O2 Delivery O2 Flow Rate FiO2 07/06/17 18:00 117 07/06/17 16:15 94 Nasal Cannula 4 07/06/17 16:00 76 07/06/17 16:00 98.4 76 37 100/49 (66) 100 07/06/17 16:00 40 07/06/17 15:00 86 07/06/17 14:00 74 07/06/17 12:00 79 07/06/17 12:00 40 07/06/17 12:00 99.2 79 30 119/57 (77) 100 07/06/17 10:00 89 07/06/17 08:50 98 40 07/06/17 08:00 85 07/06/17 08:00 40 07/06/17 08:00 99.6 85 24 150/66 (94) 99 07/06/17 07:00 85 07/06/17 07:00 100 Mechanical Ventilator 40 07/06/17 06:00 80 07/06/17 04:05 100 40 07/06/17 04:00 99.2 80 14 137/61 (86) 98 07/06/17 04:00 80 07/06/17 04:00 40 07/06/17 02:00 76 07/06/17 01:15 99 40 07/06/17 00:00 85 07/06/17 00:00 40 07/06/17 00:00 99.8 85 14 145/64 (91) 98 07/05/17 23:00 89 07/05/17 22:00 77 Objective Radiology Results Last 48 hours Impressions Chest X-Ray 07/06/17 0600 Signed Impressions: Service Date/Time: Thursday, July 06, 2017 04:18 - CONCLUSION: No acute cardiopulmonary abnormality is identified. Rylan Dorantes MD Head CT 07/06/17 0000 Signed Impressions: Service Date/Time: Thursday, July 06, 2017 14:51 - CONCLUSION: Stable CT brain scan intracranially with no acute change. Small air-fluid levels posteriorly in right maxillary sinus and left sphenoid sinus compartment which could represent acute sinusitis. Venu Grewal MD Central Venous Line 07/05/17 1701 Signed Impressions: Service Date/Time: Wednesday, July 05, 2017 17:01 - CONCLUSION: Uncomplicated line placement as above. Stevie Valles MD Neck CTA 07/05/17 0000 Signed Impressions: Service Date/Time: Wednesday, July 05, 2017 14:05 - CONCLUSION: Moderate calcification is present without evidence for hemodynamically significant stenosis. Martinez Adame MD FACR Head CTA 07/05/17 0000 Signed Impressions: Service Date/Time: Wednesday, July 05, 2017 14:05 - CONCLUSION: 1. 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 The patient is to undergo cerebral angiography Stevie Valles MD Head CT 07/05/17 Signed Impressions: Service Date/Time: Wednesday, July 05, 2017 11:58 - CONCLUSION: Negative for infarct or hemorrhage. Martinez Adame MD FACR Chest X-Ray 07/05/17 Signed Impressions: Service Date/Time: Wednesday, July 05, 2017 12:24 - CONCLUSION: ET tube in good position. Martinez Adame MD FACR Cerebral Arteriogram 07/05/17 Signed Impressions: Service Date/Time: Wednesday, July 05, 2017 15:07 - CONCLUSION: 1. No evidence of vessel occlusion. Asymmetric no cerebral arteries as above Stevie Valles MD Micro and Labs Laboratory Tests Test 07/05/17 22:37 07/06/17 04:42 Potassium Level 3.3 3.8 Magnesium Level 1.7 White Blood Count 9.4 Red Blood Count 3.26 Hemoglobin 9.6 Hematocrit 29.0 Mean Corpuscular Volume 89.0 Mean Corpuscular Hemoglobin 29.4 Mean Corpuscular Hemoglobin Concent 33.0 Red Cell Distribution Width 18.4 Platelet Count 286 Mean Platelet Volume 7.5 Blood Urea Nitrogen 15 Creatinine 0.47 Random Glucose 105 Calcium Level 7.5 Sodium Level 140 Chloride Level 108 Carbon Dioxide Level 23.2 Anion Gap 9 Estimat Glomerular Filtration Rate 128 Delores Baugh MD Jul 06, 2017 21:14
[2017-07-06] MEDS ORDERED: DEXMEDETOMIDINE HCL 200 MCG/2 ML VIAL IV PUSH ONE (21:30)
[2017-07-06] MEDS: DEXMEDETOMIDINE INJ 200 MCG in SODIUM CHLORIDE 0.9% INJ 50 ML IV PRN (21:31)
[2017-07-07] VITALS (17 sets, daily range): BP systolic 89–159; BP diastolic 53–78; PULSE 64–168; RESP 18–48; TEMP 96.3–98.8; O2SAT 96–100
[2017-07-07] MEDS ORDERED: DEXTROSE 50% IN WATER 50 ML SYRINGE ONE (00:55)
[2017-07-07] MEDS: DEXMEDETOMIDINE INJ 200 MCG in SODIUM CHLORIDE 0.9% INJ 50 ML IV PRN ×3 (02:22→16:57)
[2017-07-07] MEDS: RESP: ALBUTEROL 2.5 MG/IPRATROPIUM 0.5 MG NEB (SCH) INH ×4 (03:10→19:54)
[2017-07-07] MEDS: HALOPERIDOL LACTATE 5 MG/ML AMP IV PRN ×2 (03:28→11:32)
[2017-07-07] MEDS: CHLORHEXIDINE GLUCONATE 2 % 1 PACK (2 CLOTHS) TOP SCH (04:00)
[2017-07-07 04:23] LABS: HEMATOCRIT 28.4 % (35.0-46.0); MEAN CELL VOLUME 88.6 FL (80.0-100.0); MEAN CORPUSCULAR HEMOGLOBIN 29.2 PG (27.0-34.0); PLATELET COUNT 278 TH/MM3 (150-450); RED BLOOD COUNT 3.21 MIL/MM3 (4.00-5.30); RED CELL DISTRIBUTION WIDTH 17.5 % (11.6-17.2); REVIEW FLAG FINAL; WHITE BLOOD COUNT 12.2 TH/MM3 (4.0-11.0)
[2017-07-07 04:47] LABS: BICARBONATE 25.5 MEQ/L (21.0-32.0); POTASSIUM 3.1 MEQ/L (3.5-5.1)
[2017-07-07] MEDS: hydrALAZINE HCL 25 MG TAB PO SCH ×3 (05:21→21:22)
[2017-07-07] MEDS: POTASSIUM CHLOR 40 MEQ PREMIX 100 ML IV PRN ×2 (05:43→08:06)
[2017-07-07] MEDS: INSULIN NovoLIN REGULAR SUPPLEMENTAL SCALE SQ SCH ×4 (06:00→18:00)
[2017-07-07] MEDS: CHLORHEXIDINE 0.12% (ORAL KIT) 15 ML CUP MT SCH ×2 (08:00→20:00)
[2017-07-07] MEDS: ASPIRIN 300 MG SUPP RECTAL SCH (08:30)
[2017-07-07] MEDS: FAMOTIDINE 20 MG/2 ML VIAL IV PUSH SCH ×2 (08:30→21:21)
[2017-07-07] MEDS: DOCUSATE SODIUM 50 MG/SENNA 8.6 MG TAB PO SCH ×2 (09:00→21:00)
[2017-07-07] MEDS: METOPROLOL TARTRATE 25 MG TAB PO SCH ×2 (09:00→21:00)
[2017-07-07] MEDS: SODIUM CHLOR 0.9% 1000 ML INJ 1,000 ML IV SCH ×2 (09:58→19:09)
--- NOTE | 2017-07-07 14:59 | HHI.CCPN ---
Subjective Remarks/Hospital Course This is a 77-year-old female with a history of hypertension and hypercholesterolemia who presented to the emergency department as a stroke alert. When I evaluated the patient she was artery intubated and sedated and no additional information is obtainable from her. Per chart review and my discussions with the emergency department physician, apparently she was noted at 10 AM to suddenly to become confused and have slurred speech. Initially she was not able move her left upper extremity, but in the emergency department she was noted to be moving her left upper extremity. She continued to have dysarthria. Noncontrasted head CT demonstrated no acute head bleed and she was given IV TPA after discussion of risks and benefits in the emergency department. She then underwent CT angiography which demonstrated a flow void in the left MCA. She was then taken emergently to interventional radiology, but no evidence of thrombus was seen in order to perform mechanical thrombectomy. She arrives today surgical ICU in critical condition, intubated, sedated. 07/06: Ongoing neurological workup. Will lighten sedation and reassess right sided strength. Watch for seizures. Update 1700 hours: No confirmed seizure activity. Received tPA after acute left arm weakness and slurred speech with normal CT Head. CTA head did not show any clot for retrieval. Hand grasp left arm strong today. Moves both legs. 07/07: Patient is very agitated, requiring sedation protocol with precedex. Objective Vital Signs Date Time Temp Pulse Resp B/P (MAP) Pulse Ox O2 Delivery O2 Flow Rate FiO2 07/07/17 14:00 64 07/07/17 12:00 96.3 48 153/78 (103) 100 07/07/17 08:12 Nasal Cannula 2.00 07/06/17 16:00 40 Intake and Output 07/07/17 07/07/17 07/08/17 08:00 16:00 00:00 Intake Total 785.1 ml 331.2 ml Output Total 1000 ml Balance -214.9 ml 331.2 ml Result Diagram: 07/07/17 0345 07/07/17 0345 Imaging Last Impressions Neck CTA 07/05/17 0000 Draft Impressions: Service Date/Time: Wednesday, July 05, 2017 14:05 - CONCLUSION: Moderate calcification is present without evidence for hemodynamically significant stenosis. Martinez Adame MD FACR Head CTA 07/05/17 0000 Signed Impressions: Service Date/Time: Wednesday, July 05, 2017 14:05 - CONCLUSION: 1. 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 The patient is to undergo cerebral angiography Stevie Valles MD Head CT 07/05/17 Signed Impressions: Service Date/Time: Wednesday, July 05, 2017 11:58 - CONCLUSION: Negative for infarct or hemorrhage. Martinez Adame MD FACR Chest X-Ray 07/05/17 0000 Signed Impressions: Service Date/Time: Wednesday, July 05, 2017 12:24 - CONCLUSION: ET tube in good position. Martinez Adame MD FACR Cerebral Arteriogram 07/05/17 0000 Signed Impressions: Service Date/Time: Wednesday, July 05, 2017 15:07 - CONCLUSION: 1. No evidence of vessel occlusion. Asymmetric no cerebral arteries as above Stevie Valles MD Objective Remarks GENERAL: Elderly female, intubated, sedated HEENT: Normocephalic. Atraumatic. Pupils equal, round, reactive, conjugate. Mucous membranes are moist NECK: Trachea is midline. No airway obstruction or stridor. CHEST: Clear to auscultation. Comfortable pattern. CARDIOVASCULAR: Normal rate, regular rhythm. Blood pressure 150s ABDOMEN: Soft, nontender, nondistended. No guarding. BS active. MUSCULOSKELETAL: Pulses 2+. No peripheral edema. Well perfused. NEUROLOGICAL: Moves 4 limbs with strength. Very agitated, attempts to climb out of bed. CHRISTOPHER. A/P Assessment and Plan Assessment: This is a 77-year-old female with an acute left MCA CVA status post systemic IV TPA and failed mechanical thrombectomy. She is critically ill this time. We will monitor her with frequent neuro checks and repeat head CT 24 hours after TPA. Plan by systems: Neurologic: Acute left MCA CVA status post systemic TPA Failed attempt at mechanical thrombectomy Concern for possible Seizure activity - frequent neuro checks - repeat interval head CT - neuro consult - portable EEG Respiratory: Acute hypoxic and hypercarbic respiratory failure - no sbt today given acute cva. - avoid hypercarbia - wean fio2 for spo2 > 90% - hob at 30 degrees, nebs, vent bundle -Lighten sedation. Cardiovascular: History of Hypertension History of Hyperlipidemia - AM lipid panel - needs ASA after TPA window - 2d echo - Permissive hypertension, goal SBP less than 180 - labetalol, hydralazine and cardene prn. Renal: - Barry for accurate I/Os -- Strict I/Os FEN/GI: Acute protein calorie malnutrition- moderate - NPO - ICU electrolyte protocol - daily bmp - NS @ 84cc/hr. - prevent hypovolemia. Heme/ID: - no infectious etiologies at this time - no transfusion requirements - daily cbc Endocrine: Hyperglycemia of critical illness -- SSI, medium scale, every 6 Prophylaxis: GI Prophylaxis - Pepcid DVT Prophylaxis -- SCDs - hold pharmacologic DVT prophylaxis while in TPA window. plan to restart tomorrow. Lines: - Peripheral IVs - Barry Dispo: - Remain in ICU following presentation with Left MCA CVA. Requiring sedation protocol for severe agitation. Jose Luis Dacosta MD Jul 07, 2017 14:59
[2017-07-07] MEDS ORDERED: ZIPRASIDONE MESYLATE 20 MG VIAL IM PRN (15:00)
[2017-07-07] MEDS: LABETALOL HCL 100 MG/20 ML VIAL IV PUSH PRN (22:34)
[2017-07-08] VITALS (16 sets, daily range): BP systolic 108–175; BP diastolic 67–117; PULSE 87–164; RESP 20–34; TEMP 97.9–100.6; O2SAT 92–99
[2017-07-08] MEDS: DEXMEDETOMIDINE INJ 200 MCG in SODIUM CHLORIDE 0.9% INJ 50 ML IV PRN ×2 (01:43→06:16)
[2017-07-08 03:26] LABS: MEAN CELL VOLUME 88.2 FL (80.0-100.0); MEAN CORPUSCULAR HEMOGLOBIN 28.5 PG (27.0-34.0); MEAN CORPUSCULAR HGB CONC 32.3 % (32.0-36.0); PLATELET COUNT 372 TH/MM3 (150-450); RED BLOOD COUNT 3.63 MIL/MM3 (4.00-5.30); RED CELL DISTRIBUTION WIDTH 17.5 % (11.6-17.2); REVIEW FLAG FINAL; WHITE BLOOD COUNT 14.7 TH/MM3 (4.0-11.0)
[2017-07-08] MEDS: RESP: ALBUTEROL 2.5 MG/IPRATROPIUM 0.5 MG NEB (SCH) INH ×4 (03:29→19:33)
[2017-07-08 03:44] LABS: BICARBONATE 22.7 MEQ/L (21.0-32.0); POTASSIUM 3.3 MEQ/L (3.5-5.1)
[2017-07-08] MEDS: CHLORHEXIDINE GLUCONATE 2 % 1 PACK (2 CLOTHS) TOP SCH (03:47)
[2017-07-08] MEDS: POTASSIUM CHLOR 40 MEQ PREMIX 100 ML IV PRN (03:52)
[2017-07-08] MEDS: hydrALAZINE HCL 25 MG TAB PO SCH ×3 (05:58→21:07)
[2017-07-08] MEDS: INSULIN NovoLIN REGULAR SUPPLEMENTAL SCALE SQ SCH ×4 (05:59→18:00)
--- NOTE | 2017-07-08 07:45 | HHI.PR ---
Review/Management Daily Summary 07/06 neuro hebert she was extubated and agitated but calmed down and followed commands moves 4 limbs well verbalizes words aware of children at bedside markedly improved!!! discussed with jonathan rodarte yesterday will add asa, status post tpa when more stable mri brain f/u ct negative 07/08 awake and following commands less agitated this am but combative yesterday requiring restraints dry mucosa TIA/Stroke, s/p tpa without focal motor deficits encephalopathy, some apparent dementia sx past year, any etoh hx? continue hydration and hopefully oob activities, diet etc soon Subjective Subjective Comments agitated intt Active Medications Current Medications Medications (Trade) Dose Ordered Sig/Peyman Route Start Time Stop Time Status Last Admin (Trandate Inj) 20 mg Q15M PRN IV PUSH 07/05/17 13:15 07/07/17 22:34 (Apresoline Inj) 10 mg Q30M PRN IV PUSH 07/05/17 13:15 07/06/17 08:31 (Mag-Ox) 800 mg UNSCH PRN PO 07/05/17 13:15 Magnesium Sulfate 4 gm/Sodium Chloride 100 ml @ 50 mls/hr UNSCH PRN IV 07/05/17 13:15 Magnesium Sulfate 2 gm/Sodium Chloride 100 ml @ 50 mls/hr UNSCH PRN IV 07/05/17 13:15 Potassium Chloride 100 ml @ 50 mls/hr Q2H PRN IV 07/05/17 13:15 Potassium Chloride 100 ml @ 50 mls/hr Q2H PRN IV 07/05/17 13:15 Potassium Chloride 100 ml @ 50 mls/hr Q2H PRN IV 07/05/17 13:15 07/07/17 08:06 Potassium Chloride 100 ml @ 25 mls/hr UNSCH PRN IV 07/05/17 13:15 07/08/17 03:52 (K-Phos) 2,000 mg Q4H PRN PO 07/05/17 13:15 (K-Phos) 2,000 mg UNSCH PRN PO/TUBE 07/05/17 13:15 Potassium Phosphate 30 mmol/ Sodium Chloride 260 ml @ 42 mls/hr UNSCH PRN IV 07/05/17 13:15 Sodium Phosphate 30 mmol/Sodium Chloride 250 ml @ 42 mls/hr UNSCH PRN IV 07/05/17 13:15 (Peridex 0.12% Liq) 15 ml BID@08,20 MT 07/05/17 20:00 07/07/17 08:00 (D50w (Vial) Inj) 25 ml UNSCH PRN IV PUSH 07/05/17 13:15 07/07/17 00:56 (NovoLIN R SUPPLEMENTAL SCALE) 1 Q6HR SQ 07/05/17 18:00 (Duoneb Neb) 1 ampule Q6HR NEB INH 07/05/17 16:00 07/08/17 03:29 (Duoneb Neb) 1 ampule Q2HR NEB PRN INH 07/05/17 13:15 Sodium Chloride 1,000 ml @ 60 mls/hr [id number] IV 07/05/17 15:00 07/07/17 19:09 (Pepcid Inj) 20 mg Q12HR IV PUSH 07/05/17 21:00 07/07/17 21:21 (Zofran Inj) 4 mg Q6H PRN IV 07/05/17 13:15 Miscellaneous Information 1 Q361D XX 07/05/17 13:15 07/06/17 04:47 (Chlorhexidine 2% Cloth) 3 pack Taper DAILY@04 TOP 07/06/17 04:00 07/02/18 03:59 07/07/17 04:00 (Chlorhexidine 2% Cloth) 3 pack UNSCH PRN TOP 07/05/17 13:15 (Anita-Colace) 1 tab BID PO 07/05/17 21:00 07/06/17 09:09 Midazolam HCl 100 ml @ 2 mls/hr Q50H PRN IV 07/05/17 13:37 Fentanyl Citrate 250 ml @ 5 mls/hr Q50H PRN IV 07/05/17 13:37 07/06/17 09:10 Propofol 100 ml @ 1.8 mls/hr TITRATE PRN IV 07/05/17 16:00 07/05/17 20:14 (Apresoline) 25 mg Q8HR PO 07/06/17 08:45 (Lopressor) 12.5 mg Q12HR PO 07/06/17 09:00 07/06/17 09:09 (Aspirin Supp) 300 mg DAILY RECTAL 07/07/17 09:00 07/07/17 08:30 Dexmedetomidine HCl 200 mcg/ Sodium Chloride 52 ml @ 3.1 mls/hr [id number] PRN IV 07/06/17 21:18 07/08/17 06:16 (Geodon Inj) 10 mg Q8H PRN IM 07/07/17 15:00 07/07/17 22:19 Allergies Allergies Coded Allergies metronidazole (Verified Allergy, Unknown, HIVES, 07/07/17) Exam I&O / VS Vital Signs Date Time Temp Pulse Resp B/P (MAP) Pulse Ox O2 Delivery O2 Flow Rate FiO2 07/08/17 06:00 87 07/08/17 04:00 100.6 102 24 147/73 (97) 92 07/08/17 04:00 102 07/08/17 02:00 116 07/08/17 00:00 97.9 106 22 148/67 (94) 94 07/08/17 00:00 109 07/07/17 23:00 115 07/07/17 22:00 168 07/07/17 20:00 97.5 98 25 159/72 (101) 96 07/07/17 20:00 98 07/07/17 19:54 97 Nasal Cannula 2.00 07/07/17 19:00 97 Nasal Cannula 2.00 07/07/17 18:00 82 07/07/17 16:00 97.5 70 19 143/63 (89) 100 07/07/17 16:00 70 07/07/17 15:00 69 07/07/17 14:00 64 07/07/17 12:00 94 07/07/17 12:00 96.3 94 48 153/78 (103) 100 07/07/17 10:00 72 07/07/17 08:12 99 Nasal Cannula 2.00 07/07/17 08:00 76 07/07/17 08:00 97.6 76 20 133/62 (85) 100 Objective Micro and Labs Laboratory Tests Test 07/07/17 18:00 07/08/17 03:15 Potassium Level 3.7 3.3 White Blood Count 14.7 Red Blood Count 3.63 Hemoglobin 10.3 Hematocrit 32.0 Mean Corpuscular Volume 88.2 Mean Corpuscular Hemoglobin 28.5 Mean Corpuscular Hemoglobin Concent 32.3 Red Cell Distribution Width 17.5 Platelet Count 372 Mean Platelet Volume 7.4 Blood Urea Nitrogen 7 Creatinine 0.38 Random Glucose 91 Calcium Level 9.0 Sodium Level 136 Chloride Level 99 Carbon Dioxide Level 22.7 Anion Gap 14 Estimat Glomerular Filtration Rate 163 Delores Baugh MD Jul 08, 2017 07:45
[2017-07-08] MEDS: DOCUSATE SODIUM 50 MG/SENNA 8.6 MG TAB PO SCH ×2 (09:00→21:00)
[2017-07-08] MEDS: METOPROLOL TARTRATE 25 MG TAB PO SCH ×3 (09:00→21:00)
--- NOTE | 2017-07-08 09:39 | HHI.CCPN ---
Subjective Remarks/Hospital Course This is a 77-year-old female with a history of hypertension and hypercholesterolemia who presented to the emergency department as a stroke alert. When I evaluated the patient she was artery intubated and sedated and no additional information is obtainable from her. Per chart review and my discussions with the emergency department physician, apparently she was noted at 10 AM to suddenly to become confused and have slurred speech. Initially she was not able move her left upper extremity, but in the emergency department she was noted to be moving her left upper extremity. She continued to have dysarthria. Noncontrasted head CT demonstrated no acute head bleed and she was given IV TPA after discussion of risks and benefits in the emergency department. She then underwent CT angiography which demonstrated a flow void in the left MCA. She was then taken emergently to interventional radiology, but no evidence of thrombus was seen in order to perform mechanical thrombectomy. She arrives today surgical ICU in critical condition, intubated, sedated. 07/06: Ongoing neurological workup. Will lighten sedation and reassess right sided strength. Watch for seizures. Update 1700 hours: No confirmed seizure activity. Received tPA after acute left arm weakness and slurred speech with normal CT Head. CTA head did not show any clot for retrieval. Hand grasp left arm strong today. Moves both legs. 07/07: Patient is very agitated, requiring sedation protocol with precedex. 07/08: Patient conversant but agitated. Swallow eval today and will restart paxil at family request. Clearly there is an element of progressive dementia over the past many months. Objective Vital Signs Date Time Temp Pulse Resp B/P (MAP) Pulse Ox O2 Delivery O2 Flow Rate FiO2 07/08/17 09:14 96 21 07/08/17 06:00 87 07/08/17 04:00 100.6 24 147/73 (97) 07/07/17 19:54 Nasal Cannula 2.00 Intake and Output 07/08/17 07/08/17 07/08/17 07:59 15:59 23:59 Intake Total 808 ml Output Total 2950 ml Balance -2142 ml Result Diagram: 07/08/17 0315 07/08/17 0315 Imaging Last Impressions Neck CTA 07/05/17 0000 Draft Impressions: Service Date/Time: Wednesday, July 05, 2017 14:05 - CONCLUSION: Moderate calcification is present without evidence for hemodynamically significant stenosis. Martinez Adame MD FACR Head CTA 07/05/17 Signed Impressions: Service Date/Time: Wednesday, July 05, 2017 14:05 - CONCLUSION: 1. 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 The patient is to undergo cerebral angiography Stevie Valles MD Head CT 07/05/17 Signed Impressions: Service Date/Time: Wednesday, July 05, 2017 11:58 - CONCLUSION: Negative for infarct or hemorrhage. Martinez Adame MD FACR Chest X-Ray 07/05/17 Signed Impressions: Service Date/Time: Wednesday, July 05, 2017 12:24 - CONCLUSION: ET tube in good position. Martinez Adame MD FACR Cerebral Arteriogram 07/05/17 Signed Impressions: Service Date/Time: Wednesday, July 05, 2017 15:07 - CONCLUSION: 1. No evidence of vessel occlusion. Asymmetric no cerebral arteries as above Stevie Valles MD Objective Remarks GENERAL: Elderly female, intubated, sedated HEENT: Normocephalic. Atraumatic. Mucous membranes are moist NECK: Trachea is midline. No airway obstruction or stridor. CHEST: Clear to auscultation. Comfortable pattern. No wheezes or crackles. CARDIOVASCULAR: Normal rate, regular rhythm. No JVD. ABDOMEN: Soft, nontender, nondistended. No guarding. BS active. MUSCULOSKELETAL: Warm. No peripheral edema. Well perfused. NEUROLOGICAL: Moves 4 limbs with strength. Intermittently agitated, attempts to climb out of bed. CHRISTOPHER. Conversant and oriented to place. A/P Assessment and Plan Assessment: This is a 77-year-old female with an acute left MCA CVA status post systemic IV TPA and failed mechanical thrombectomy. We will monitor her with frequent neuro checks and repeat head CT 24 hours after TPA. Plan by systems: Neurologic: Acute left MCA CVA status post systemic TPA Failed attempt at mechanical thrombectomy Concern for possible Seizure activity - frequent neuro checks - repeat interval head CT - neuro consult - portable EEG Respiratory: Acute hypoxic and hypercarbic respiratory failure - no sbt today given acute cva. - avoid hypercarbia - wean fio2 for spo2 > 90% - hob at 30 degrees, nebs, vent bundle - no sedation. Cardiovascular: History of Hypertension History of Hyperlipidemia - AM lipid panel - needs ASA after TPA window - 2d echo - Permissive hypertension, goal SBP less than 180 - labetalol, hydralazine and cardene prn. Renal: - Barry for accurate I/Os -- Strict I/Os FEN/GI: Acute protein calorie malnutrition- moderate - NPO - ICU electrolyte protocol - daily bmp - NS @ 84cc/hr. - prevent hypovolemia. - Swallow eval -> feed. Heme/ID: - no infectious etiologies at this time - no transfusion requirements - daily cbc Endocrine: Hyperglycemia of critical illness -- SSI, medium scale, every 6 Prophylaxis: GI Prophylaxis - Pepcid DVT Prophylaxis -- SCDs - very active, chemical DVT px not indicated Lines: - Peripheral IVs - Barry Dispo: - Remains in ICU following presentation with Left MCA CVA due to severe agitation. Weaning precedex and to floor. Restart paxil. Jose Luis Dacosta MD Jul 08, 2017 09:39
[2017-07-08] MEDS: PARoxetine HCL 20 MG TAB PO SCH ×2 (09:45→15:39)
[2017-07-08] MEDS: FAMOTIDINE 20 MG/2 ML VIAL IV PUSH SCH ×2 (10:44→21:00)
[2017-07-08] MEDS: CHLORHEXIDINE 0.12% (ORAL KIT) 15 ML CUP MT SCH ×2 (10:44→20:00)
[2017-07-08] MEDS: ASPIRIN 300 MG SUPP RECTAL SCH (10:44)
[2017-07-08] MEDS: SODIUM CHLOR 0.9% 1000 ML INJ 1,000 ML IV SCH (12:08)
[2017-07-08] MEDS ORDERED: METOPROLOL TARTRATE 5 MG/5 ML VIAL IV PUSH SCH (14:00)
[2017-07-08] MEDS ORDERED: MIDAZOLAM 100 MG/NS 100 ML DRIP Premix IV PRN (17:00)
[2017-07-08] MEDS: LABETALOL HCL 100 MG/20 ML VIAL IV PUSH PRN ×2 (21:07→23:00)
[2017-07-09] VITALS (12 sets, daily range): BP systolic 121–162; BP diastolic 73–104; PULSE 86–117; RESP 18–28; TEMP 97.9–99.4; O2SAT 93–98
[2017-07-09] MEDS: CHLORHEXIDINE GLUCONATE 2 % 1 PACK (2 CLOTHS) TOP SCH (04:00)
[2017-07-09] MEDS: RESP: ALBUTEROL 2.5 MG/IPRATROPIUM 0.5 MG NEB (SCH) INH ×2 (05:23→07:56)
[2017-07-09 05:24] LABS: MEAN CELL VOLUME 89.1 FL (80.0-100.0); MEAN CORPUSCULAR HEMOGLOBIN 28.5 PG (27.0-34.0); PLATELET COUNT 446 TH/MM3 (150-450); RED BLOOD COUNT 4.04 MIL/MM3 (4.00-5.30); RED CELL DISTRIBUTION WIDTH 17.5 % (11.6-17.2); REVIEW FLAG FINAL
[2017-07-09 05:47] LABS: BICARBONATE 24.4 MEQ/L (21.0-32.0); POTASSIUM 3.5 MEQ/L (3.5-5.1)
[2017-07-09] MEDS: hydrALAZINE HCL 25 MG TAB PO SCH ×4 (06:00→22:00)
[2017-07-09] MEDS: INSULIN NovoLIN REGULAR SUPPLEMENTAL SCALE SQ SCH ×4 (06:00→18:00)
[2017-07-09] MEDS: LABETALOL HCL 100 MG/20 ML VIAL IV PUSH PRN ×3 (07:00→22:41)
[2017-07-09] MEDS: DOCUSATE SODIUM 50 MG/SENNA 8.6 MG TAB PO SCH ×3 (09:00→21:04)
[2017-07-09] MEDS: METOPROLOL TARTRATE 25 MG TAB PO SCH ×4 (09:00→21:04)
[2017-07-09] MEDS: CHLORHEXIDINE 0.12% (ORAL KIT) 15 ML CUP MT SCH ×2 (10:49→20:00)
[2017-07-09] MEDS: PARoxetine HCL 20 MG TAB PO SCH (10:49)
[2017-07-09] MEDS: FAMOTIDINE 20 MG/2 ML VIAL IV PUSH SCH ×3 (10:50→21:04)
[2017-07-09] MEDS: ASPIRIN 300 MG SUPP RECTAL SCH (10:52)
[2017-07-09] MEDS: SODIUM CHLOR 0.9% 1000 ML INJ 1,000 ML IV SCH (10:53)
[2017-07-09] MEDS: POTASSIUM CHLOR 20 MEQ PREMIX 100 ML IV PRN ×2 (11:55→14:35)
--- NOTE | 2017-07-09 15:08 | HHI.PR ---
Subjective Remarks Resting in bed, no headache or blurry vision No chest pain short of breath Objective Vitals Vital Signs Date Time Temp Pulse Resp B/P (MAP) Pulse Ox O2 Delivery O2 Flow Rate FiO2 07/09/17 07:58 Nasal Cannula 2.00 07/09/17 06:00 117 07/09/17 04:00 100 07/09/17 04:00 99.3 100 28 156/104 (121) 98 07/09/17 02:00 103 07/09/17 00:00 99.4 100 22 162/74 (103) 93 07/09/17 00:00 100 07/08/17 23:30 94 Nasal Cannula 2.00 07/08/17 23:00 102 07/08/17 22:00 101 07/08/17 20:00 164 07/08/17 20:00 98.1 164 20 175/90 (118) 97 07/08/17 19:00 97 Room Air 07/08/17 18:00 106 07/08/17 16:00 98.4 104 29 148/117 (127) 99 07/08/17 16:00 100 I/O 07/08/17 07/08/17 07/08/17 07/09/17 07/09/17 07/09/17 07:00 15:00 23:00 07:00 15:00 23:00 Intake Total 808 ml 524 ml 740 ml 609 ml Output Total 2950 ml 1200 ml 175 ml Balance -2142 ml 524 ml -460 ml 434 ml Intake IV Total 808 ml 524 ml 740 ml 609 ml Output Urine Total 2950 ml 1200 ml 175 ml # Bowel Movements 0 1 Result Diagram: 07/09/17 0438 07/09/17 0438 Imaging Last Impressions Chest X-Ray 07/06/17 0600 Signed Impressions: Service Date/Time: Thursday, July 06, 2017 04:18 - CONCLUSION: No acute cardiopulmonary abnormality is identified. Rylan Dorantes MD Head CT 07/06/17 0000 Signed Impressions: Service Date/Time: Thursday, July 06, 2017 14:51 - CONCLUSION: Stable CT brain scan intracranially with no acute change. Small air-fluid levels posteriorly in right maxillary sinus and left sphenoid sinus compartment which could represent acute sinusitis. Venu Grewal MD Central Venous Line 07/05/17 1701 Signed Impressions: Service Date/Time: Wednesday, July 05, 2017 17:01 - CONCLUSION: Uncomplicated line placement as above. Stevie Valles MD Neck CTA 07/05/17 0000 Signed Impressions: Service Date/Time: Wednesday, July 05, 2017 14:05 - CONCLUSION: Moderate calcification is present without evidence for hemodynamically significant stenosis. Martinez Adame MD FACR Head CTA 07/05/17 0000 Signed Impressions: Service Date/Time: Wednesday, July 05, 2017 14:05 - CONCLUSION: 1. 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 The patient is to undergo cerebral angiography Stevie Valles MD Cerebral Arteriogram 07/05/17 0000 Signed Impressions: Service Date/Time: Wednesday, July 05, 2017 15:07 - CONCLUSION: 1. No evidence of vessel occlusion. Asymmetric no cerebral arteries as above Stevie Valles MD Objective Remarks GENERAL: This is a well-nourished, well-developed patient, in no apparent distress. SKIN: No rashes, warm and dry HEAD: Atraumatic. Normocephalic. EYES: Pupils equal round and reactive. Extraocular motions intact. No scleral icterus. ENT: Nose without bleeding, or drainage, Airway patent. NECK: Trachea midline. Supple CARDIOVASCULAR: Regular rate and rhythm without murmurs, gallops, or rubs. RESPIRATORY: Fair air entry bilaterally. No wheezes, rales, or rhonchi. GASTROINTESTINAL: Abdomen soft, non-tender, nondistended. Positive bowel sounds MUSCULOSKELETAL: Extremities without clubbing, cyanosis, or edema. Pedal pulses appreciated NEUROLOGICAL: Awake and alert. Moves all extremity. 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 - avoid hypercarbia - wean fio2 for spo2 > 90% - hob at 30 degrees, nebs, vent bundle - no sedation. History of Hypertension History of Hyperlipidemia - Lipitor - needs ASA after TPA window - 2d echo reviewed -Resume blood pressure control - labetalol, hydralazine and cardene prn. Renal: - Barry for accurate I/Os -- Strict I/Os FEN/GI: Acute protein calorie malnutrition- moderate - daily bmp - NS @ 84cc/hr. - prevent hypovolemia. - Swallow eval -> feed. GI Prophylaxis - Pepcid DVT Prophylaxis -- SCDs - very active, chemical DVT px not indicated Deondre Abel MD Jul 09, 2017 15:08
--- NOTE | 2017-07-09 16:38 | HHI.PR ---
Review/Management Diagnosis CVA--improved s/p tpa still with significant confusion , aggitation Plan MRI/MRA brain continue asa case management consult to look into possible in patient rehab after dc. Diagnosis/Plan: Daily Summary 07/06 neuro hebert she was extubated and agitated but calmed down and followed commands moves 4 limbs well verbalizes words aware of children at bedside markedly improved!!! discussed with jonathan rodarte yesterday will add asa, status post tpa when more stable mri brain f/u ct negative 07/08 awake and following commands less agitated this am but combative yesterday requiring restraints dry mucosa TIA/Stroke, s/p tpa without focal motor deficits encephalopathy, some apparent dementia sx past year, any etoh hx? continue hydration and hopefully oob activities, diet etc soon Subjective Subjective Comments No acute events reported Pt has boon oob with assistance , walking with timothy, swallowing pureed diet. Still disoriented and confused and anxious Active Medications Current Medications Medications (Trade) Dose Ordered Sig/Peyman Route Start Time Stop Time Status Last Admin (Trandate Inj) 20 mg Q15M PRN IV PUSH 07/05/17 13:15 07/09/17 07:00 (Apresoline Inj) 10 mg Q30M PRN IV PUSH 07/05/17 13:15 07/06/17 08:31 (Mag-Ox) 800 mg UNSCH PRN PO 07/05/17 13:15 Magnesium Sulfate 4 gm/Sodium Chloride 100 ml @ 50 mls/hr UNSCH PRN IV 07/05/17 13:15 Magnesium Sulfate 2 gm/Sodium Chloride 100 ml @ 50 mls/hr UNSCH PRN IV 07/05/17 13:15 Potassium Chloride 100 ml @ 50 mls/hr Q2H PRN IV 07/05/17 13:15 Potassium Chloride 100 ml @ 50 mls/hr Q2H PRN IV 07/05/17 13:15 07/09/17 14:35 Potassium Chloride 100 ml @ 50 mls/hr Q2H PRN IV 07/05/17 13:15 07/07/17 08:06 Potassium Chloride 100 ml @ 25 mls/hr UNSCH PRN IV 07/05/17 13:15 07/08/17 03:52 (K-Phos) 2,000 mg Q4H PRN PO 07/05/17 13:15 (K-Phos) 2,000 mg UNSCH PRN PO/TUBE 07/05/17 13:15 Potassium Phosphate 30 mmol/ Sodium Chloride 260 ml @ 42 mls/hr UNSCH PRN IV 07/05/17 13:15 Sodium Phosphate 30 mmol/Sodium Chloride 250 ml @ 42 mls/hr UNSCH PRN IV 07/05/17 13:15 (Peridex 0.12% Liq) 15 ml BID@08,20 MT 07/05/17 20:00 07/09/17 10:49 (D50w (Vial) Inj) 25 ml UNSCH PRN IV PUSH 07/05/17 13:15 07/07/17 00:56 (NovoLIN R SUPPLEMENTAL SCALE) 1 Q6HR SQ 07/05/17 18:00 (Duoneb Neb) 1 ampule Q2HR NEB PRN INH 07/05/17 13:15 07/09/17 16:02 Sodium Chloride 1,000 ml @ 60 mls/hr [id number] IV 07/05/17 15:00 07/09/17 10:53 (Pepcid Inj) 20 mg Q12HR IV PUSH 07/05/17 21:00 07/09/17 10:50 (Zofran Inj) 4 mg Q6H PRN IV 07/05/17 13:15 Miscellaneous Information 1 Q361D XX 07/05/17 13:15 07/06/17 04:47 (Chlorhexidine 2% Cloth) 3 pack Taper DAILY@04 TOP 07/06/17 04:00 07/02/18 03:59 07/09/17 04:00 (Chlorhexidine 2% Cloth) 3 pack UNSCH PRN TOP 07/05/17 13:15 (Anita-Colace) 1 tab BID PO 07/05/17 21:00 07/08/17 21:00 Propofol 100 ml @ 1.8 mls/hr TITRATE PRN IV 07/05/17 16:00 07/05/17 20:14 (Apresoline) 25 mg Q8HR PO 07/06/17 08:45 07/09/17 14:34 (Aspirin Supp) 300 mg DAILY RECTAL 07/07/17 09:00 07/09/17 10:52 Dexmedetomidine HCl 200 mcg/ Sodium Chloride 52 ml @ 3.1 mls/hr [id number] PRN IV 07/06/17 21:18 07/08/17 06:16 (Paxil) 20 mg DAILY PO 07/08/17 09:45 07/09/17 10:49 Midazolam HCl 100 ml @ 2 mls/hr TITRATE PRN IV 07/08/17 17:00 (Lopressor) 50 mg Q12HR PO 07/09/17 21:00 (Lipitor) 40 mg HS PO 07/09/17 21:00 Allergies Allergies Coded Allergies metronidazole (Verified Allergy, Unknown, HIVES, 07/07/17) Exam I&O / VS Vital Signs Date Time Temp Pulse Resp B/P (MAP) Pulse Ox O2 Delivery O2 Flow Rate FiO2 07/09/17 07:58 Nasal Cannula 2.00 07/09/17 06:00 117 07/09/17 04:00 100 07/09/17 04:00 99.3 100 28 156/104 (121) 98 07/09/17 02:00 103 07/09/17 00:00 99.4 100 22 162/74 (103) 93 07/09/17 00:00 100 07/08/17 23:30 94 Nasal Cannula 2.00 07/08/17 23:00 102 07/08/17 22:00 101 07/08/17 20:00 164 07/08/17 20:00 98.1 164 20 175/90 (118) 97 07/08/17 19:00 97 Room Air 07/08/17 18:00 106 Exam Comments alert, disoriented to date and place. Speech normal, follows commands CN 2-12 normal MOTOR 5/5 BUE and BLE Objective Micro and Labs Laboratory Tests Test 07/09/17 04:38 White Blood Count 12.0 Red Blood Count 4.04 Hemoglobin 11.5 Hematocrit 36.0 Mean Corpuscular Volume 89.1 Mean Corpuscular Hemoglobin 28.5 Mean Corpuscular Hemoglobin Concent 32.0 Red Cell Distribution Width 17.5 Platelet Count 446 Mean Platelet Volume 7.8 Blood Urea Nitrogen 13 Creatinine 0.70 Random Glucose 120 Calcium Level 9.4 Sodium Level 138 Potassium Level 3.5 Chloride Level 102 Carbon Dioxide Level 24.4 Anion Gap 12 Estimat Glomerular Filtration Rate 81 Jas Charles PhD Jul 09, 2017 16:38
[2017-07-09] MEDS ORDERED: LORazepam 2 MG/ML VIAL IV PUSH PRN (16:45)
[2017-07-09] MEDS: ATORVASTATIN 40 MG TAB PO SCH (21:04)
[2017-07-09] MEDS ORDERED: METOPROLOL TARTRATE 5 MG/5 ML VIAL IV PUSH ONE (21:45)
[2017-07-09] MEDS: LORazepam 2 MG/ML VIAL IV PUSH PRN (22:41)
[2017-07-10] VITALS (12 sets, daily range): BP systolic 145–159; BP diastolic 69–107; PULSE 82–107; RESP 18–33; TEMP 97.2–99.7; O2SAT 93–97
[2017-07-10] MEDS: LABETALOL HCL 100 MG/20 ML VIAL IV PUSH PRN ×2 (03:40→20:17)
[2017-07-10] MEDS: CHLORHEXIDINE GLUCONATE 2 % 1 PACK (2 CLOTHS) TOP SCH (04:00)
[2017-07-10] MEDS: SODIUM CHLOR 0.9% 1000 ML INJ 1,000 ML IV SCH ×2 (04:13→22:23)
[2017-07-10] MEDS: hydrALAZINE HCL 25 MG TAB PO SCH ×3 (06:00→22:00)
[2017-07-10] MEDS: INSULIN NovoLIN REGULAR SUPPLEMENTAL SCALE SQ SCH ×4 (06:00→18:00)
[2017-07-10 06:47] LABS: HEMATOCRIT 32.2 % (35.0-46.0); MEAN CELL VOLUME 88.1 FL (80.0-100.0); MEAN CORPUSCULAR HEMOGLOBIN 29.1 PG (27.0-34.0); PLATELET COUNT 447 TH/MM3 (150-450); RED BLOOD COUNT 3.66 MIL/MM3 (4.00-5.30); RED CELL DISTRIBUTION WIDTH 17.4 % (11.6-17.2); REVIEW FLAG FINAL; WHITE BLOOD COUNT 10.4 TH/MM3 (4.0-11.0)
[2017-07-10 07:17] LABS: BICARBONATE 25.1 MEQ/L (21.0-32.0); POTASSIUM 3.4 MEQ/L (3.5-5.1)
[2017-07-10] MEDS: CHLORHEXIDINE 0.12% (ORAL KIT) 15 ML CUP MT SCH ×2 (08:00→20:00)
[2017-07-10] MEDS: FAMOTIDINE 20 MG/2 ML VIAL IV PUSH SCH ×2 (08:25→22:22)
[2017-07-10] MEDS: METOPROLOL TARTRATE 25 MG TAB PO SCH ×2 (08:27→22:22)
[2017-07-10] MEDS: DOCUSATE SODIUM 50 MG/SENNA 8.6 MG TAB PO SCH ×2 (08:28→22:22)
[2017-07-10] MEDS: ASPIRIN 300 MG SUPP RECTAL SCH (08:28)
[2017-07-10] MEDS: POTASSIUM CHLOR 40 MEQ PREMIX 100 ML IV PRN (09:08)
[2017-07-10] MEDS: PARoxetine HCL 20 MG TAB PO SCH (09:45)
--- NOTE | 2017-07-10 13:36 | HHI.PR ---
Subjective Remarks confused observed gazed to the right for a few seconds not responsive then resolved in seconds.??sz saw bugs and bicycles today no voices. Objective Vital Signs Date Time Temp Pulse Resp B/P (MAP) Pulse Ox O2 Delivery O2 Flow Rate FiO2 07/10/17 06:00 102 07/10/17 04:00 92 07/10/17 04:00 97.2 92 18 153/78 (103) 95 07/10/17 02:00 93 07/10/17 00:22 Room Air 07/10/17 00:00 98.0 100 24 148/95 (112) 96 07/10/17 00:00 100 07/09/17 22:00 104 07/09/17 20:00 97 07/09/17 20:00 97.9 97 21 141/98 (112) 98 07/09/17 18:00 86 07/09/17 16:00 98.2 88 21 149/75 (99) 95 07/09/17 16:00 88 07/09/17 14:00 110 I/O 07/09/17 07/09/17 07/09/17 07/10/17 07/10/17 07/10/17 06:59 14:59 22:59 06:59 14:59 22:59 Intake Total 609 ml 540 ml 1012 ml 540 ml Output Total 175 ml 575 ml 375 ml 250 ml Balance 434 ml -35 ml 637 ml 290 ml Intake Oral 540 ml 280 ml IV Total 609 ml 732 ml 540 ml Output Urine Total 175 ml 575 ml 375 ml 250 ml # Voids 2 1 # Bowel Movements 1 2 1 awake alert knew and named son and his fiance fluent perrla no facial. right side weaknes mild Result Diagram: 07/10/17 0550 07/10/17 0550 Imaging mri/a pending pending eeg Assessment and Plan Assessment and Plan s/p tpa delirium possible sz check eeg if abnl start keppra 500 mg bid asa qd pt-ot-ot,rehab. mri/a today. Maria Guadalupe Henao MD Jul 10, 2017 13:35
--- NOTE | 2017-07-10 16:29 | HHI.PR ---
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 Patient today is delirious today in restrained laying in bed, she was able to mumble her name Obviously patient received a dose of Ativan overnight, I discussed with the nurse to avoid Ativan or benzodiazepines- since it can worsen until status and delirium Objective Vitals Vital Signs Date Time Temp Pulse Resp B/P (MAP) Pulse Ox O2 Delivery O2 Flow Rate FiO2 07/10/17 06:00 102 07/10/17 04:00 92 07/10/17 04:00 97.2 92 18 153/78 (103) 95 07/10/17 02:00 93 07/10/17 00:22 Room Air 07/10/17 00:00 98.0 100 24 148/95 (112) 96 07/10/17 00:00 100 07/09/17 22:00 104 07/09/17 20:00 97 07/09/17 20:00 97.9 97 21 141/98 (112) 98 07/09/17 18:00 86 I/O 07/09/17 07/09/17 07/09/17 07/10/17 07/10/17 07/10/17 06:59 14:59 22:59 06:59 14:59 22:59 Intake Total 609 ml 540 ml 1012 ml 540 ml Output Total 175 ml 575 ml 375 ml 250 ml Balance 434 ml -35 ml 637 ml 290 ml Intake Oral 540 ml 280 ml IV Total 609 ml 732 ml 540 ml Output Urine Total 175 ml 575 ml 375 ml 250 ml # Voids 2 1 # Bowel Movements 1 2 1 Result Diagram: 07/10/17 0550 07/10/17 0550 Imaging Last Impressions Chest X-Ray 07/06/17 0600 Signed Impressions: Service Date/Time: Thursday, July 06, 2017 04:18 - CONCLUSION: No acute cardiopulmonary abnormality is identified. Rylan Dorantes MD Head CT 07/06/17 0000 Signed Impressions: Service Date/Time: Thursday, July 06, 2017 14:51 - CONCLUSION: Stable CT brain scan intracranially with no acute change. Small air-fluid levels posteriorly in right maxillary sinus and left sphenoid sinus compartment which could represent acute sinusitis. Venu Grewal MD Central Venous Line 07/05/17 1701 Signed Impressions: Service Date/Time: Wednesday, July 05, 2017 17:01 - CONCLUSION: Uncomplicated line placement as above. Stevie Valles MD Neck CTA 07/05/17 0000 Signed Impressions: Service Date/Time: Wednesday, July 05, 2017 14:05 - CONCLUSION: Moderate calcification is present without evidence for hemodynamically significant stenosis. Martinez Adame MD FACR Head CTA 07/05/17 0000 Signed Impressions: Service Date/Time: Wednesday, July 05, 2017 14:05 - CONCLUSION: 1. 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 The patient is to undergo cerebral angiography Stevie Valles MD Cerebral Arteriogram 07/05/17 0000 Signed Impressions: Service Date/Time: Wednesday, July 05, 2017 15:07 - CONCLUSION: 1. No evidence of vessel occlusion. Asymmetric no cerebral arteries as above Stevie Valles MD Objective Remarks GENERAL: This is a well-nourished, well-developed patient, in no apparent distress. SKIN: No rashes, warm and dry HEAD: Atraumatic. Normocephalic. EYES: Pupils equal round and reactive. Extraocular motions intact. No scleral icterus. ENT: Nose without bleeding, or drainage, Airway patent. NECK: Trachea midline. Supple CARDIOVASCULAR: Regular rate and rhythm without murmurs, gallops, or rubs. RESPIRATORY: Fair air entry bilaterally. No wheezes, rales, or rhonchi. GASTROINTESTINAL: Abdomen soft, non-tender, nondistended. Positive bowel sounds MUSCULOSKELETAL: Extremities without clubbing, cyanosis, or edema. Pedal pulses appreciated NEUROLOGICAL: Awake but delirious. Moves all extremity. 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 History of Hypertension History of Hyperlipidemia - Lipitor - needs ASA after TPA window, defer to neurology to start - 2d echo reviewed -Resume blood pressure control increase Lopressor on 07/09 -Status post labetalol, hydralazine and cardene prn. - Barry for accurate I/Os -- Strict I/Os FEN/GI: Acute protein calorie malnutrition- moderate - daily bmp - NS @ 84cc/hr. - prevent hypovolemia. - Swallow eval -> feed. GI Prophylaxis - Pepcid DVT Prophylaxis -- SCDs -Status post TPA, chemical when okay with Deondre Abel MD Jul 10, 2017 16:29
[2017-07-10] MEDS ORDERED: LORazepam 2 MG/ML VIAL IV PUSH PRN (20:00)
[2017-07-10] MEDS: ATORVASTATIN 40 MG TAB PO SCH (22:22)
--- NOTE | 2017-07-10 22:42 | RADRPT ---
EXAM DATE/TIME: 07/10/2017 20:45 [facility] COMPARISON: CT BRAIN W/O CONTRAST, July 06, 2017, 14:51. INDICATIONS : CVA. History of left-sided weakness and altered mental status. Abnormal CT of the brain with prominen t cisterna magna versus arachnoid cyst. MEDICAL HISTORY : Hypertension. SURGICAL HISTORY : Bilateral knee, bladder ENCOUNTER: Initial ACUITY: 1 day PAIN SCORE: 0/10 LOCATION: cranial TECHNIQUE: Multiplanar, multisequence MRI of the brain was performed without contrast. FINDINGS: CEREBRUM: The ventricles are normal for age. No evidence of midline shift, mass lesion, or hemorrhage. No extr aaxial fluid collections are seen. The pituitary gland and suprasellar cistern are normal in configu ration. WHITE MATTER: On the flair weighted images there is increased signal in the periventricular white matter and centru m semi-ovale consistent with chronic small vessel ischemic change. POSTERIOR FOSSA: There is a prominent CSF-containing space in the posterior fossa most consistent with arachnoid cyst. There is apparent flattening of the posterior vermis. The cerebellum and brainstem are intact. The 4th ventricle is midline. The cerebellopontine angle is unremarkable. The cerebellar tonsils are nor mal in position. DIFFUSION IMAGING: On diffusion weighted image #10 there is a tiny 3 mm focus of increased signal noted in the deep whit e matter of the right parietal lobe. No other restricted diffusion is identified. EXTRACRANIAL: The visualized portions of the orbits and paranasal sinuses are unremarkable. CONCLUSION: 1. Single tiny area of apparent restricted diffusion in the deep right parietal lobe of concern for a small area of lacunar type infarction. 2. Atrophy and chronic small vessel ischemic change. 3. Comment CSF-containing space in the posterior fossa most characteristic of an arachnoid cyst. Jean Oden MD on July 10, 2017 at 22:35 Board Certified Radiologist. This report was verified electronically.
--- NOTE | 2017-07-10 23:15 | RADRPT ---
EXAM DATE/TIME: 07/10/2017 20:45 [facility] COMPARISON: No previous studies available for comparison. INDICATIONS : CVA. MEDICAL HISTORY : Hypertension. SURGICAL HISTORY : Bilateral knee, bladder ENCOUNTER: Initial ACUITY: 1 day PAIN SCORE: 0/10 LOCATION: cranial Please note a normal MRA of the brain does not entirely exclude the possibility of a small aneurysm, nor the possibility of distal intracranial vessel disease. TECHNIQUE: 3D time of flight MRA was performed. Source images, multiplanar STS MIP, and 3D volume MIP reconstru ctions were reviewed. FINDINGS: There is excellent visualization of the major intracranial arteries out to the second-order branch ve ssels. There is no evidence for aneurysm, vessel truncation or stenosis, and no evidence for vascula r malformation. CONCLUSION: Normal examination for a patient of this age. Olvin Palomo MD on July 10, 2017 at 23:13 Board Certified Radiologist. This report was verified electronically.
[2017-07-11] VITALS (13 sets, daily range): BP systolic 105–170; BP diastolic 52–85; PULSE 62–97; RESP 13–19; TEMP 97.5–99.5; O2SAT 96–99
[2017-07-11] MEDS: POTASSIUM CHLOR 20 MEQ PREMIX 100 ML IV PRN ×2 (02:15→04:12)
[2017-07-11] MEDS: LABETALOL HCL 100 MG/20 ML VIAL IV PUSH PRN (03:04)
[2017-07-11] MEDS: CHLORHEXIDINE GLUCONATE 2 % 1 PACK (2 CLOTHS) TOP SCH ×2 (03:30→23:09)
[2017-07-11] MEDS: INSULIN NovoLIN REGULAR SUPPLEMENTAL SCALE SQ SCH ×5 (06:00→23:22)
[2017-07-11] MEDS: hydrALAZINE HCL 25 MG TAB PO SCH ×3 (06:00→22:57)
[2017-07-11] MEDS: CHLORHEXIDINE 0.12% (ORAL KIT) 15 ML CUP MT SCH ×2 (08:00→20:00)
[2017-07-11] MEDS: METOPROLOL TARTRATE 25 MG TAB PO SCH ×2 (10:06→20:58)
[2017-07-11] MEDS: DOCUSATE SODIUM 50 MG/SENNA 8.6 MG TAB PO SCH ×2 (10:06→20:58)
[2017-07-11] MEDS: PARoxetine HCL 20 MG TAB PO SCH (10:06)
[2017-07-11] MEDS: FAMOTIDINE 20 MG/2 ML VIAL IV PUSH SCH ×2 (10:06→20:57)
[2017-07-11] MEDS: ASPIRIN 300 MG SUPP RECTAL SCH (10:06)
[2017-07-11 11:13] LABS: HEMATOCRIT 37.2 % (35.0-46.0); MEAN CELL VOLUME 89.8 FL (80.0-100.0); MEAN CORPUSCULAR HEMOGLOBIN 28.7 PG (27.0-34.0); PLATELET COUNT 286 TH/MM3 (150-450); RED BLOOD COUNT 4.15 MIL/MM3 (4.00-5.30); RED CELL DISTRIBUTION WIDTH 17.5 % (11.6-17.2); REVIEW FLAG FINAL; WHITE BLOOD COUNT 8.7 TH/MM3 (4.0-11.0)
[2017-07-11 11:39] LABS: BICARBONATE 21.4 MEQ/L (21.0-32.0); POTASSIUM 4.5 MEQ/L (3.5-5.1)
--- NOTE | 2017-07-11 11:44 | HHI.PR ---
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 9-3 had swallow eval with speech on nectar thick liquids and pureed diet will check UA AM LABS PT,OT, ST MRIS REVIEWED Objective Vitals Vital Signs Date Time Temp Pulse Resp B/P (MAP) Pulse Ox O2 Delivery O2 Flow Rate FiO2 07/11/17 08:00 99 Nasal Cannula 1.00 07/11/17 06:00 66 07/11/17 04:00 98.1 70 14 163/73 (103) 96 07/11/17 04:00 70 07/11/17 02:00 79 07/11/17 00:00 99.5 97 16 144/85 (104) 98 07/11/17 00:00 79 07/10/17 22:00 91 07/10/17 21:00 97 Nasal Cannula 1.00 07/10/17 20:00 99.7 97 27 155/107 (123) 93 07/10/17 20:00 107 07/10/17 19:00 93 Room Air 07/10/17 18:00 93 07/10/17 16:00 98.0 92 22 145/81 (102) 95 07/10/17 16:00 92 07/10/17 14:00 82 07/10/17 12:00 97.5 86 23 159/69 (99) 97 07/10/17 12:00 86 I/O 07/10/17 07/10/17 07/10/17 07/11/17 07/11/17 07/11/17 06:59 14:59 22:59 06:59 14:59 22:59 Intake Total 540 ml 1360 ml 200 ml Output Total 250 ml Balance 290 ml 1360 ml 200 ml Intake Oral 360 ml 0 ml IV Total 540 ml 1000 ml 200 ml Output Urine Total 250 ml # Voids 1 2 5 # Bowel Movements 1 2 Result Diagram: 07/11/17 1103 07/10/17 1840 Other Results Laboratory Tests Test 07/09/17 04:38 07/10/17 05:50 07/10/17 18:40 07/11/17 11:03 White Blood Count 12.0 TH/MM3 10.4 TH/MM3 8.7 TH/MM3 Red Blood Count 4.04 MIL/MM3 3.66 MIL/MM3 4.15 MIL/MM3 Hemoglobin 11.5 GM/DL 10.6 GM/DL 11.9 GM/DL Hematocrit 36.0 % 32.2 % 37.2 % Mean Corpuscular Volume 89.1 FL 88.1 FL 89.8 FL Mean Corpuscular Hemoglobin 28.5 PG 29.1 PG 28.7 PG Mean Corpuscular Hemoglobin Concent 32.0 % 33.0 % 32.0 % Red Cell Distribution Width 17.5 % 17.4 % 17.5 % Platelet Count 446 TH/MM3 447 TH/MM3 286 TH/MM3 Mean Platelet Volume 7.8 FL 7.9 FL 7.5 FL Blood Urea Nitrogen 13 MG/DL 15 MG/DL 11 MG/DL Creatinine 0.70 MG/DL 0.58 MG/DL 0.45 MG/DL Random Glucose 120 MG/DL 120 MG/DL 82 MG/DL Calcium Level 9.4 MG/DL 8.2 MG/DL 8.7 MG/DL Sodium Level 138 MEQ/L 138 MEQ/L 136 MEQ/L Potassium Level 3.5 MEQ/L 3.4 MEQ/L 3.5 MEQ/L 4.5 MEQ/L Chloride Level 102 MEQ/L 102 MEQ/L 103 MEQ/L Carbon Dioxide Level 24.4 MEQ/L 25.1 MEQ/L 21.4 MEQ/L Anion Gap 12 MEQ/L 11 MEQ/L 12 MEQ/L Estimat Glomerular Filtration Rate 81 ML/MIN 100 ML/MIN 134 ML/MIN Magnesium Level 1.4 MG/DL Hematology Comments Imaging Last Impressions Head Magnetic Resonance Angiography 07/10/17 0000 Signed Impressions: Service Date/Time: Monday, July 10, 2017 20:45 - CONCLUSION: Normal examination for a patient of this age. Olvin Palomo MD Brain MRI 07/10/17 0000 Signed Impressions: Service Date/Time: Monday, July 10, 2017 20:45 - CONCLUSION: 1. Single tiny area of apparent restricted diffusion in the deep right parietal lobe of concern for a small area of lacunar type infarction. 2. Atrophy and chronic small vessel ischemic change. 3. Comment CSF-containing space in the posterior fossa most characteristic of an arachnoid cyst. Jean Oden MD Chest X-Ray 07/06/17 0600 Signed Impressions: Service Date/Time: Thursday, July 06, 2017 04:18 - CONCLUSION: No acute cardiopulmonary abnormality is identified. Rylan Dorantes MD Head CT 07/06/17 0000 Signed Impressions: Service Date/Time: Thursday, July 06, 2017 14:51 - CONCLUSION: Stable CT brain scan intracranially with no acute change. Small air-fluid levels posteriorly in right maxillary sinus and left sphenoid sinus compartment which could represent acute sinusitis. Venu Grewal MD Central Venous Line 07/05/17 1701 Signed Impressions: Service Date/Time: Wednesday, July 05, 2017 17:01 - CONCLUSION: Uncomplicated line placement as above. Stevie Valles MD Neck CTA 07/05/17 0000 Signed Impressions: Service Date/Time: Wednesday, July 05, 2017 14:05 - CONCLUSION: Moderate calcification is present without evidence for hemodynamically significant stenosis. Martinez Adame MD FACR Head CTA 07/05/17 0000 Signed Impressions: Service Date/Time: Wednesday, July 05, 2017 14:05 - CONCLUSION: 1. 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 The patient is to undergo cerebral angiography Stevie Valles MD Cerebral Arteriogram 07/05/17 0000 Signed Impressions: Service Date/Time: Wednesday, July 05, 2017 15:07 - CONCLUSION: 1. No evidence of vessel occlusion. Asymmetric no cerebral arteries as above Stevie Valles MD Objective Remarks GENERAL: This is a well-nourished, well-developed patient, in no apparent distress. SKIN: No rashes, warm and dry HEAD: Atraumatic. Normocephalic. EYES: Pupils equal round and reactive. Extraocular motions intact. No scleral icterus. ENT: Nose without bleeding, or drainage, Airway patent. TONGUE MIDLINE ORAL MUCOSA MOIST NECK: Trachea midline. Supple CARDIOVASCULAR: Regular rate and rhythm without murmurs, gallops, or rubs. S1, S2 NO S3 OR S4 NO HEAVE OR THRILL RESPIRATORY: Fair air entry bilaterally. No wheezes, rales, or rhonchi. CTA BL GASTROINTESTINAL: Abdomen soft, non-tender, nondistended. Positive bowel sounds MUSCULOSKELETAL: Extremities without clubbing, cyanosis, or edema. Pedal pulses appreciated NEUROLOGICAL: Awake AND ALERT Moves all extremity. SOME WORD FINDING ISSUES ON NEW QUESTIONS- GOOD WITH OLD HISTORICAL QUESTIONS INSIGHT AND JUDGEMENT ARE LIMITED MOOD AND BEHAVIOR ARE SOMEWHAT APPROPRIATE Procedures SP TPA Medications and IVs Current Medications Sodium Chloride 1,000 ml @ 70 mls/hr [id number] ONCE IV ; Start 07/05/17 at 11:45 ; Stop 07/05/17 at 14:54; Status DC Propofol 100 ml @ As Directed STK-MED ONCE .ROUTE Last administered on 17:21; Start 07/05/17 at 12:22; Stop 07/05/17 at 12:23; Status DC Propofol 100 ml @ 0 mls/hr Q0M IV ; Start 07/05/17 at 13:13; Status UNV Labetalol HCl (Trandate Inj) 20 mg Q15M PRN IV PUSH sbp > 160 Last administered on 07/11/17 03:04; Start 07/05/17 at 13:15 Hydralazine HCl (Apresoline Inj) 10 mg Q30M PRN IV PUSH sbp > 160 Last administered on 07/06/17 08:31; Start 07/05/17 at 13:15 Magnesium Oxide (Mag-Ox) 800 mg UNSCH PRN PO For Magnesium 1.2 - 1.6 mg/dL; Start 07/05/17 at 13:15 Magnesium Sulfate 4 gm/Sodium Chloride 100 ml @ 50 mls/hr UNSCH PRN IV For Magnesium 0.9 - 1.1 mg/dL; Start 07/05/17 at 13:15 Magnesium Sulfate 2 gm/Sodium Chloride 100 ml @ 50 mls/hr UNSCH PRN IV For Magnesium 1.2 - 1.6 mg/dL Last administered on 07/11/17 06:23; Start 07/05/17 at 13:15 Potassium Chloride 100 ml @ 50 mls/hr Q2H PRN IV For Potassium 2.8 - 3.2 mEq/L ; Start 07/05/17 at 13:15 Potassium Chloride 100 ml @ 50 mls/hr Q2H PRN IV For Potassium 3.3 - 3.5 mEq/ L Last administered on 07/11/17 04:12; Start 07/05/17 at 13:15 Potassium Chloride 100 ml @ 50 mls/hr Q2H PRN IV For Potassium 2.8 - 3.2 mEq/ L Last administered on 07/07/17 08:06; Start 07/05/17 at 13:15 Potassium Chloride 100 ml @ 25 mls/hr UNSCH PRN IV For Potassium 3.3 - 3.5 mEq /L Last administered on 07/10/17 09:08; Start 07/05/17 at 13:15 Potassium Phosphate (K-Phos) 2,000 mg Q4H PRN PO For Phosphorus < 2.5 mg/dL; Start 07/05/17 at 13:15 Potassium Phosphate (K-Phos) 2,000 mg UNSCH PRN PO/TUBE SEE LABEL COMMENTS; Start 07/05/17 at 13:15 Potassium Phosphate 30 mmol/ Sodium Chloride 260 ml @ 42 mls/hr UNSCH PRN IV SEE LABEL COMMENTS; Start 07/05/17 at 13:15 Sodium Phosphate 30 mmol/Sodium Chloride 250 ml @ 42 mls/hr UNSCH PRN IV For Phosphorus < 2.5 mg/dL; Start 07/05/17 at 13:15 Chlorhexidine Gluconate (Peridex 0.12% Liq) 15 ml BID@08,20 MT Last administered on 07/11/17 08:00; Start 07/05/17 at 20:00 Dextrose (D50w (Vial) Inj) 25 ml UNSCH PRN IV PUSH HYPOGLYCEMIA-SEE COMMENTS Last administered on 07/07/17 00:56; Start 07/05/17 at 13:15 Insulin Human Regular (NovoLIN R SUPPLEMENTAL SCALE) 1 Q6HR SQ ; Start 07/05/17 at 18:00 Albuterol/ Ipratropium (Duoneb Neb) 1 ampule Q6HR NEB INH Last administered on 07/09/17 07:56; Start 07/05/17 at 16:00; Stop 07/09/17 at 15:59; Status DC Albuterol/ Ipratropium (Duoneb Neb) 1 ampule Q2HR NEB PRN INH WHEEZING Last administered on 07/09/17 16:02; Start 07/05/17 at 13:15 Sodium Chloride 1,000 ml @ 60 mls/hr [id number] IV Last administered on 07/10/17 22:23; Start 07/05/17 at 15:00 Famotidine (Pepcid Inj) 20 mg Q12HR IV PUSH Last administered on 07/11/17 10:06 ; Start 07/05/17 at 21:00 Ondansetron HCl (Zofran Inj) 4 mg Q6H PRN IV NAUSEA OR VOMITING; Start at 13:15 Miscellaneous Information 1 [id number] XX Last administered on 07/06/17 04:47; Start 07/05/17 at 13:15 Chlorhexidine Gluconate (Chlorhexidine 2% Cloth) Taper DAILY@04 TOP Last administered on 07/10/17 04:00; Start 07/06/17 at 04:00; Stop 07/02/18 at 03:59 Chlorhexidine Gluconate (Chlorhexidine 2% Cloth) 3 pack UNSCH PRN TOP HYGIENIC CARE; Start 07/05/17 at 13:15 Senna/Docusate Sodium (Anita-Colace) 1 tab BID PO Last administered on 07/11/17 10:06; Start 07/05/17 at 21:00 Midazolam HCl (Versed Inj) 5 mg ONCE ONCE IV PUSH Last administered on 16:19; Start 07/05/17 at 13:30; Stop 07/05/17 at 13:31; Status DC Midazolam HCl (Versed Inj) 5 mg STK-MED ONCE .ROUTE ; Start 07/05/17 at 13:26; Stop 07/05/17 at 13:27; Status DC Midazolam HCl 100 ml @ 2 mls/hr Q50H PRN IV SEDATION; Start 07/05/17 at 13:37; Stop 07/08/17 at 16:57; Status DC Fentanyl Citrate 250 ml @ 5 mls/hr Q50H PRN IV SEDATION Last administered on 09:10; Start 07/05/17 at 13:37; Stop 07/08/17 at 09:42; Status DC Iohexol (Omnipaque 350 Inj) 80 ml STK-MED ONCE IVCONTRAST Last administered on 07/05/17 14:14; Start 07/05/17 at 14:14; Stop 07/05/17 at 14:16; Status DC Propofol 100 ml @ 1.8 mls/hr TITRATE PRN IV SEDATION Last administered on 07/05 20:14; Start 07/05/17 at 16:00 Alteplase, Recombinant (Activase Bolus) 5.4 mg ONCE ONCE IV Last administered on 07/05/17 16:16; Start 07/05/17 at 15:15; Stop 07/05/17 at 15:18; Status DC Alteplase, Recombinant 48.5 mg/Syringe / Bag 48.5 ml @ 48.5 mls/hr ONCE ONCE IV Last administered on 07/05/17 16:17; Start 07/05/17 at 15:15; Stop at 16:14; Status DC Sodium Chloride (NS Inj) 30 ml ONCE ONCE IVF ; Start 07/05/17 at 15:15; Stop at 15:18; Status DC Miscellaneous Information No Heparin, Warfarin, Aspir... UNSCH PRN XX SEE DOSE INSTRUCTIONS; Start 07/05/17 at 15:15; Stop 07/06/17 at 15:14; Status DC Verapamil HCl (Isoptin Inj) 10 mg STK-MED ONCE .ROUTE Last administered on 07/05 15:23; Start 07/05/17 at 15:23; Stop 07/05/17 at 15:24; Status DC Sodium Chloride 1,000 ml @ 999 mls/hr Q1H IV Last administered on 07/06/17 00 :00; Start 07/05/17 at 23:00; Stop 07/06/17 at 00:59; Status DC Hydralazine HCl (Apresoline) 25 mg Q8HR PO Last administered on 07/10/17 14:22 ; Start 07/06/17 at 08:45 Metoprolol Tartrate (Lopressor) 12.5 mg Q12HR PO Last administered on 07/09/17 10:52; Start 07/06/17 at 09:00; Stop 07/09/17 at 14:42; Status DC Aspirin (Aspirin Supp) 300 mg DAILY RECTAL Last administered on 07/11/17 10:06 ; Start 07/07/17 at 09:00 Dexmedetomidine HCl (Precedex Inj) 30 mcg ONCE ONCE IV PUSH ; Start 07/06/17 at 21:30; Stop 07/06/17 at 21:31; Status DC Dexmedetomidine HCl 200 mcg/ Sodium Chloride 52 ml @ 3.1 mls/hr [id number] PRN IV SEDATION Last administered on 07/08/17 06:16; Start 07/06/17 at 21:18 Dextrose (D50w (Syr) Inj) 50 ml STK-MED ONCE .ROUTE ; Start 07/07/17 at 00:55; Stop 07/07/17 at 00:56; Status DC Haloperidol Lactate (Haldol Inj) 5 mg Q6H PRN IV AGITATION Last administered on 07/07/17 11:32; Start 07/07/17 at 03:00; Stop 07/07/17 at 15:01; Status DC Ziprasidone (Geodon Inj) 10 mg Q8H PRN IM AGITATION Last administered on 22:19; Start 07/07/17 at 15:00; Stop 07/08/17 at 09:42; Status DC Paroxetine HCl (Paxil) 20 mg DAILY PO Last administered on 07/11/17 10:06; Start 07/08/17 at 09:45 Metoprolol Tartrate (Lopressor Inj) 5 mg ONCE IV PUSH ; Start 07/08/17 at 14:00 ; Stop 07/08/17 at 23:59; Status DC Metoprolol Tartrate (Lopressor) 25 mg Q12HR PO Last administered on 07/08/17 21:00; Start 07/08/17 at 21:00; Stop 07/09/17 at 14:42; Status DC Midazolam HCl 100 ml @ 2 mls/hr TITRATE PRN IV SEDATION; Start 07/08/17 at 17: 00 Metoprolol Tartrate (Lopressor) 50 mg Q12HR PO Last administered on 07/11/17 10 :06; Start 07/09/17 at 21:00 Atorvastatin Calcium (Lipitor) 40 mg HS PO Last administered on 07/10/17 22:22 ; Start 07/09/17 at 21:00 Lorazepam (Ativan Inj) 0.5 mg UNSCH X1 PRN IV PUSH WIRE CUTTER TO MRI; Start at 16:45; Stop 07/10/17 at 16:44; Status DC Metoprolol Tartrate (Lopressor Inj) 5 mg ONCE ONCE IV PUSH ; Start 07/09/17 at 21:45; Stop 07/09/17 at 21:46; Status DC Lorazepam (Ativan Inj) 0.2 mg Q4H PRN IV PUSH anxiety Last administered on 22:41; Start 07/09/17 at 21:45 Lorazepam (Ativan Inj) 0.5 mg UNSCH X1 PRN IV PUSH WIRE CUTTER TO MRI Last administered on 07/10/17t 21:46; Start 07/10/17 at 20:00; Stop 07/10/17 at 23:00; Status DC A/P Assessment and Plan Acute left MCA CVA status post systemic TPA Failed attempt at mechanical thrombectomy Concern for possible Seizure activity - frequent neuro checks - repeat interval head CT - neuro consult appreciated - portable EEG>> per neuro if came positive need to start Keppra -Start statin, continue blood pressure monitoring and further control Acute hypoxic and hypercarbic respiratory failure improved - avoid hypercarbia - wean fio2 for spo2 > 90% - hob at 30 degrees, nebs, vent bundle - no sedation. History of Hypertension History of Hyperlipidemia - Lipitor - needs ASA after TPA window, defer to neurology to start - 2d echo reviewed -Resume blood pressure control increase Lopressor on 07/09 -Status post labetalol, hydralazine and cardene prn. - Barry for accurate I/Os -- Strict I/Os CHECK UA WITH C/S FEN/GI: Acute protein calorie malnutrition- moderate - daily bmp - NS @ 84cc/hr. - prevent hypovolemia. - Swallow eval -> feed. NECTAR THICK AND PUREED DIET GI Prophylaxis - Pepcid DVT Prophylaxis -- SCDs -Status post TPA, chemical when okay with NEUROLOGY Martinez Diaz DO Jul 11, 2017 11:44
[2017-07-11] MEDS: hydrALAZINE HCL 20 MG/ML VIAL IV PUSH PRN (12:29)
[2017-07-11] MEDS: SODIUM CHLOR 0.9% 1000 ML INJ 1,000 ML IV SCH (14:48)
[2017-07-11 17:06] LABS: BACTERIA, URINE MANY /hpf; BLOOD, URINE NEG (NEG); COMMENT (UR) CULTURE INDICATED; CULTURE IF INDICATED CULTURE INDICATED; GLUCOSE,URINE NEG (NEG); KETONE, URINE TRACE mg/dL (NEG); MUCUS URINE FEW /lpf (OCC); NITRITE,URINE POS (NEG); PH, URINE 7.5 (5.0-8.5); SQUAMOUS EPITHELIAL CELL URINE 3 /hpf (0-5); TRANSITIONAL EPI CELLS, URINE 2 /hpf; URINE COLOR YELLOW (YELLW/STRAW)
[2017-07-11] MEDS: ATORVASTATIN 40 MG TAB PO SCH (20:57)
--- NOTE | 2017-07-11 21:18 | MG ---
cc: NINA XAVIER M.D. Lab No: Date: 07/11/2017 Age: Sex: F Race: DATE OF 1940, 77 years old EEG NUMBER [id number] ROOM 1331 Photic stimulation done. Awake, drowsy, asleep study. CTA occluded left MCA. EEG 07/06 looked encephalopathic. She is a stroke alert with mild right-sided weakness, mild stroke on the left hemisphere. MEDICATIONS 1. On magnesium. 2. Trandate. ___ of note was given on 07/05. She had an episode when her family was talking to her when she gazed off to the right. DESCRIPTION OF RECORD The patient has some mild slowing predominately theta frequency seen. Eye moving artifact but noted that she is asleep. The patient snoring. EKG does look like there is arrhythmia noted. There is an occasional phase reversal seen over the left hemisphere, P5, P3 over epoch 89. Then an isolated sharp wave on the left side at epoch 89 as well. Photic stimulation done with some mild driving response. IMPRESSION Abnormal EEG due to some mild background slowing maybe somnolence versus medicine effect versus other encephalopathic process. However, there was an occasional sharp wave and phase reversals over the left hemisphere that could potentiate an epileptic events. Clinical correlation if possible. A trial of antiepileptic should be considered. MD JOSE Austin/LUIZA /8:26 PM /9:03 PM
[2017-07-12] VITALS (11 sets, daily range): BP systolic 106–169; BP diastolic 53–75; PULSE 63–86; RESP 12–26; TEMP 97.5–99.1; O2SAT 93–100
[2017-07-12] MEDS: hydrALAZINE HCL 25 MG TAB PO SCH ×3 (05:23→21:27)
[2017-07-12] MEDS: INSULIN NovoLIN REGULAR SUPPLEMENTAL SCALE SQ SCH (05:29)
[2017-07-12] MEDS: SODIUM CHLOR 0.9% 1000 ML INJ 1,000 ML IV SCH (06:53)
[2017-07-12 07:28] LABS: BASOPHIL # 0.1 TH/MM3 (0-0.2); BASOPHIL % 1.1 % (0.0-2.0); EOSINOPHIL # 0.4 TH/MM3 (0-0.4); EOSINOPHIL % 4.1 % (0.0-4.0); HEMATOCRIT 30.5 % (35.0-46.0); HEMO FLAGS DIFF FINAL; LYMPH % 8.1 % (9.0-44.0); LYMPHOCYTE # 0.7 TH/MM3 (1.0-4.8); MEAN CELL VOLUME 88.4 FL (80.0-100.0); MEAN CORPUSCULAR HEMOGLOBIN 29.8 PG (27.0-34.0); MEAN CORPUSCULAR HGB CONC 33.7 % (32.0-36.0); MONO % 10.6 % (0.0-8.0); NEUT % 76.1 % (16.0-70.0); PLATELET COUNT 410 TH/MM3 (150-450); RED BLOOD COUNT 3.45 MIL/MM3 (4.00-5.30); RED CELL DISTRIBUTION WIDTH 17.5 % (11.6-17.2); WHITE BLOOD COUNT 9.2 TH/MM3 (4.0-11.0)
[2017-07-12 07:36] LABS: ANION GAP 10 MEQ/L (5-15); AST (GOT) 20 U/L (15-37); BICARBONATE 23.4 MEQ/L (21.0-32.0); BLOOD UREA NITROGEN 11 MG/DL (7-18); CHLORIDE 105 MEQ/L (98-107); GLOMERULAR FILTRATION RATE 111 ML/MIN (>89); MAGNESIUM 1.8 MG/DL (1.5-2.5); POTASSIUM 3.7 MEQ/L (3.5-5.1); SODIUM (NA) 138 MEQ/L (136-145)
[2017-07-12 07:45] LABS: ALKALINE PHOSPHATASE 100 U/L (45-117); ALT (GPT) 25 U/L (10-53); FREE T4 1.13 NG/DL (0.76-1.46); TOTAL BILIRUBIN ADULT 0.7 MG/DL (0.2-1.0)
[2017-07-12] MEDS: CHLORHEXIDINE 0.12% (ORAL KIT) 15 ML CUP MT SCH ×2 (08:00→20:00)
[2017-07-12] MEDS: METOPROLOL TARTRATE 25 MG TAB PO SCH ×3 (08:04→21:32)
[2017-07-12] MEDS: FAMOTIDINE 20 MG/2 ML VIAL IV PUSH SCH ×2 (08:04→21:27)
[2017-07-12] MEDS: PARoxetine HCL 20 MG TAB PO SCH (08:04)
[2017-07-12] MEDS: DOCUSATE SODIUM 50 MG/SENNA 8.6 MG TAB PO SCH ×2 (08:04→21:00)
[2017-07-12] MEDS: ASPIRIN 300 MG SUPP RECTAL SCH (09:00)
[2017-07-12] MEDS ORDERED: ASPIRIN 325 MG TAB PO ONE (09:45)
[2017-07-12] MEDS: levETIRAcetam 500 MG TAB PO SCH ×2 (10:21→21:27)
[2017-07-12 11:18] LABS: HEMOGLOBIN A1a 0.9 %; HEMOGLOBIN A1b 0.9 %; HEMOGLOBIN LA1C 2.2 %
[2017-07-12 11:19] LABS: HEMOGLOBIN Ao 85.5 %; HEMOGLOBIN P3 5.1 %
--- NOTE | 2017-07-12 11:27 | HHI.PR ---
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 9-3 had swallow eval with speech on nectar thick liquids and pureed diet will check UA AM LABS PT,OT, ST MRIS REVIEWED 9-4 patient had abnormal EEG will start on Keppra 500MG by mouth twice a day Hep-Lock IV Transfer out of ICU A.m. labs Physical therapy occupational therapy speech therapy Will need SNF or need to go home with family Remains confused [place] Objective Vitals Vital Signs Date Time Temp Pulse Resp B/P (MAP) Pulse Ox O2 Delivery O2 Flow Rate FiO2 07/12/17 10:00 65 07/12/17 09:06 93 21 07/12/17 08:00 77 07/12/17 08:00 99.1 86 24 167/75 (105) 93 07/12/17 07:00 99 Room Air 07/12/17 06:00 75 07/12/17 04:00 98.9 68 19 150/70 (96) 95 07/12/17 04:00 68 07/12/17 02:00 66 07/12/17 00:00 97.7 63 14 106/53 (70) 98 07/12/17 00:00 63 07/11/17 22:00 67 07/11/17 20:00 73 07/11/17 20:00 97.5 71 15 140/64 (89) 97 07/11/17 19:52 97 21 07/11/17 19:00 95 Room Air 07/11/17 18:00 79 07/11/17 16:00 97.8 77 19 105/52 (69) 98 07/11/17 16:00 77 07/11/17 14:00 67 07/11/17 12:00 97.9 62 13 170/71 (104) 98 07/11/17 12:00 62 I/O 07/11/17 07/11/17 07/11/17 07/12/17 07/12/17 07/12/17 07:00 15:00 23:00 07:00 15:00 23:00 Intake Total 200 ml 360 ml 1240 ml Balance 200 ml 360 ml 1240 ml Intake Oral 0 ml 360 ml 240 ml IV Total 200 ml 1000 ml # Voids 5 3 5 # Bowel Movements 2 2 3 Result Diagram: 07/12/17 0650 07/12/17 0650 Other Results Laboratory Tests Test 07/10/17 05:50 07/10/17 18:40 07/11/17 11:03 07/11/17 15:45 White Blood Count 10.4 TH/MM3 8.7 TH/MM3 Red Blood Count 3.66 MIL/MM3 4.15 MIL/MM3 Hemoglobin 10.6 GM/DL 11.9 GM/DL Hematocrit 32.2 % 37.2 % Mean Corpuscular Volume 88.1 FL 89.8 FL Mean Corpuscular Hemoglobin 29.1 PG 28.7 PG Mean Corpuscular Hemoglobin Concent 33.0 % 32.0 % Red Cell Distribution Width 17.4 % 17.5 % Platelet Count 447 TH/MM3 286 TH/MM3 Mean Platelet Volume 7.9 FL 7.5 FL Blood Urea Nitrogen 15 MG/DL 11 MG/DL Creatinine 0.58 MG/DL 0.45 MG/DL Random Glucose 120 MG/DL 82 MG/DL Calcium Level 8.2 MG/DL 8.7 MG/DL Sodium Level 138 MEQ/L 136 MEQ/L Potassium Level 3.4 MEQ/L 3.5 MEQ/L 4.5 MEQ/L Chloride Level 102 MEQ/L 103 MEQ/L Carbon Dioxide Level 25.1 MEQ/L 21.4 MEQ/L Anion Gap 11 MEQ/L 12 MEQ/L Estimat Glomerular Filtration Rate 100 ML/MIN 134 ML/MIN Magnesium Level 1.4 MG/DL 2.3 MG/DL Hematology Comments Urine Color YELLOW Urine Turbidity HAZY Urine pH 7.5 Urine Specific [place] 1.014 Urine Protein NEG mg/dL Urine Glucose (UA) NEG mg/dL Urine Ketones TRACE mg/dL Urine Occult Blood NEG Urine Nitrite POS Urine Bilirubin NEG Urine Urobilinogen LESS THAN 2.0 MG/DL Urine Leukocyte Esterase LARGE Urine RBC 6 /hpf Urine WBC 102 /hpf Urine Squamous Epithelial Cells 3 /hpf Urine Transitional Epithelial Cells 2 /hpf Urine Amorphous Sediment RARE Urine Bacteria MANY /hpf Urine Mucus FEW /lpf Microscopic Urinalysis Comment CULTURE INDICATED Test 07/12/17 06:50 White Blood Count 9.2 TH/MM3 Red Blood Count 3.45 MIL/MM3 Hemoglobin 10.3 GM/DL Hematocrit 30.5 % Mean Corpuscular Volume 88.4 FL Mean Corpuscular Hemoglobin 29.8 PG Mean Corpuscular Hemoglobin Concent 33.7 % Red Cell Distribution Width 17.5 % Platelet Count 410 TH/MM3 Mean Platelet Volume 8.1 FL Neutrophils (%) (Auto) 76.1 % Lymphocytes (%) (Auto) 8.1 % Monocytes (%) (Auto) 10.6 % Eosinophils (%) (Auto) 4.1 % Basophils (%) (Auto) 1.1 % Neutrophils # (Auto) 7.0 TH/MM3 Lymphocytes # (Auto) 0.7 TH/MM3 Monocytes # (Auto) 1.0 TH/MM3 Eosinophils # (Auto) 0.4 TH/MM3 Basophils # (Auto) 0.1 TH/MM3 CBC Comment DIFF FINAL Differential Comment Hematology Comments Blood Urea Nitrogen 11 MG/DL Creatinine 0.53 MG/DL Random Glucose 115 MG/DL Total Protein 5.9 GM/DL Albumin 2.5 GM/DL Calcium Level 8.2 MG/DL Phosphorus Level 2.9 MG/DL Magnesium Level 1.8 MG/DL Alkaline Phosphatase 100 U/L Aspartate Amino Transf (AST/SGOT) 20 U/L Alanine Aminotransferase (ALT/SGPT) 25 U/L Total Bilirubin 0.7 MG/DL Sodium Level 138 MEQ/L Potassium Level 3.7 MEQ/L Chloride Level 105 MEQ/L Carbon Dioxide Level 23.4 MEQ/L Anion Gap 10 MEQ/L Estimat Glomerular Filtration Rate 111 ML/MIN Hemoglobin A1c 5.2 % Free Thyroxine 1.13 NG/DL Thyroid Stimulating Hormone 3rd Gen 2.830 uIU/ML Imaging Last Impressions Head Magnetic Resonance Angiography 07/10/17 0000 Signed Impressions: Service Date/Time: Monday, July 10, 2017 20:45 - CONCLUSION: Normal examination for a patient of this age. Olvin Palomo MD Brain MRI 07/10/17 0000 Signed Impressions: Service Date/Time: Monday, July 10, 2017 20:45 - CONCLUSION: 1. Single tiny area of apparent restricted diffusion in the deep right parietal lobe of concern for a small area of lacunar type infarction. 2. Atrophy and chronic small vessel ischemic change. 3. Comment CSF-containing space in the posterior fossa most characteristic of an arachnoid cyst. Jean Oden MD Chest X-Ray 07/06/17 0600 Signed Impressions: Service Date/Time: Thursday, July 06, 2017 04:18 - CONCLUSION: No acute cardiopulmonary abnormality is identified. Rylan Dorantes MD Head CT 07/06/17 0000 Signed Impressions: Service Date/Time: Thursday, July 06, 2017 14:51 - CONCLUSION: Stable CT brain scan intracranially with no acute change. Small air-fluid levels posteriorly in right maxillary sinus and left sphenoid sinus compartment which could represent acute sinusitis. Venu Grewal MD Central Venous Line 07/05/17 1701 Signed Impressions: Service Date/Time: Wednesday, July 05, 2017 17:01 - CONCLUSION: Uncomplicated line placement as above. Stevie Valles MD Neck CTA 07/05/17 0000 Signed Impressions: Service Date/Time: Wednesday, July 05, 2017 14:05 - CONCLUSION: Moderate calcification is present without evidence for hemodynamically significant stenosis. Martinez Adame MD FACR Head CTA 07/05/17 0000 Signed Impressions: Service Date/Time: Wednesday, July 05, 2017 14:05 - CONCLUSION: 1. 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 The patient is to undergo cerebral angiography Stevie Valles MD Cerebral Arteriogram 07/05/17 0000 Signed Impressions: Service Date/Time: Wednesday, July 05, 2017 15:07 - CONCLUSION: 1. No evidence of vessel occlusion. Asymmetric no cerebral arteries as above Stevie Valles MD Objective Remarks GENERAL: This is a well-nourished, well-developed patient, in no apparent distress. SKIN: No rashes, warm and dry HEAD: Atraumatic. Normocephalic. EYES: Pupils equal round and reactive. Extraocular motions intact. No scleral icterus. ENT: Nose without bleeding, or drainage, Airway patent. TONGUE MIDLINE ORAL MUCOSA MOIST NECK: Trachea midline. Supple CARDIOVASCULAR: Regular rate and rhythm without murmurs, gallops, or rubs. S1, S2 NO S3 OR S4 NO HEAVE OR THRILL RESPIRATORY: Fair air entry bilaterally. No wheezes, rales, or rhonchi. CTA BL GASTROINTESTINAL: Abdomen soft, non-tender, nondistended. Positive bowel sounds MUSCULOSKELETAL: Extremities without clubbing, cyanosis, or edema. Pedal pulses appreciated NEUROLOGICAL: Awake AND ALERT Moves all extremity. SOME WORD FINDING ISSUES ON NEW QUESTIONS- GOOD WITH OLD HISTORICAL QUESTIONS INSIGHT AND JUDGEMENT ARE LIMITED MOOD AND BEHAVIOR ARE SOMEWHAT APPROPRIATE Moves all 4 extremities motor strength is 5 out of 5 in upper extremity and lower extremity bilaterally Procedures SP TPA Medications and IVs Current Medications Sodium Chloride 1,000 ml @ 70 mls/hr [id number] ONCE IV ; Start 07/05/17 at 11:45 ; Stop 07/05/17 at 14:54; Status DC Propofol 100 ml @ As Directed STK-MED ONCE .ROUTE Last administered on 17:21; Start 07/05/17 at 12:22; Stop 07/05/17 at 12:23; Status DC Propofol 100 ml @ 0 mls/hr Q0M IV ; Start 07/05/17 at 13:13; Status UNV Labetalol HCl (Trandate Inj) 20 mg Q15M PRN IV PUSH sbp > 160 Last administered on 07/11/17 03:04; Start 07/05/17 at 13:15 Hydralazine HCl (Apresoline Inj) 10 mg Q30M PRN IV PUSH sbp > 160 Last administered on 07/11/17 12:29; Start 07/05/17 at 13:15 Magnesium Oxide (Mag-Ox) 800 mg UNSCH PRN PO For Magnesium 1.2 - 1.6 mg/dL; Start 07/05/17 at 13:15 Magnesium Sulfate 4 gm/Sodium Chloride 100 ml @ 50 mls/hr UNSCH PRN IV For Magnesium 0.9 - 1.1 mg/dL; Start 07/05/17 at 13:15 Magnesium Sulfate 2 gm/Sodium Chloride 100 ml @ 50 mls/hr UNSCH PRN IV For Magnesium 1.2 - 1.6 mg/dL Last administered on 07/11/17 06:23; Start 07/05/17 at 13:15 Potassium Chloride 100 ml @ 50 mls/hr Q2H PRN IV For Potassium 2.8 - 3.2 mEq/L ; Start 07/05/17 at 13:15 Potassium Chloride 100 ml @ 50 mls/hr Q2H PRN IV For Potassium 3.3 - 3.5 mEq/ L Last administered on 07/11/17 04:12; Start 07/05/17 at 13:15 Potassium Chloride 100 ml @ 50 mls/hr Q2H PRN IV For Potassium 2.8 - 3.2 mEq/ L Last administered on 07/07/17 08:06; Start 07/05/17 at 13:15 Potassium Chloride 100 ml @ 25 mls/hr UNSCH PRN IV For Potassium 3.3 - 3.5 mEq /L Last administered on 07/10/17 09:08; Start 07/05/17 at 13:15 Potassium Phosphate (K-Phos) 2,000 mg Q4H PRN PO For Phosphorus < 2.5 mg/dL; Start 07/05/17 at 13:15 Potassium Phosphate (K-Phos) 2,000 mg UNSCH PRN PO/TUBE SEE LABEL COMMENTS; Start 07/05/17 at 13:15 Potassium Phosphate 30 mmol/ Sodium Chloride 260 ml @ 42 mls/hr UNSCH PRN IV SEE LABEL COMMENTS; Start 07/05/17 at 13:15 Sodium Phosphate 30 mmol/Sodium Chloride 250 ml @ 42 mls/hr UNSCH PRN IV For Phosphorus < 2.5 mg/dL; Start 07/05/17 at 13:15 Chlorhexidine Gluconate (Peridex 0.12% Liq) 15 ml BID@08,20 MT Last administered on 07/11/17 08:00; Start 07/05/17 at 20:00 Dextrose (D50w (Vial) Inj) 25 ml UNSCH PRN IV PUSH HYPOGLYCEMIA-SEE COMMENTS Last administered on 07/07/17 00:56; Start 07/05/17 at 13:15 Insulin Human Regular (NovoLIN R SUPPLEMENTAL SCALE) 1 Q6HR SQ ; Start 07/05/17 at 18:00; Stop 07/12/17 at 09:39; Status DC Albuterol/ Ipratropium (Duoneb Neb) 1 ampule Q6HR NEB INH Last administered on 07/09/17 07:56; Start 07/05/17 at 16:00; Stop 07/09/17 at 15:59; Status DC Albuterol/ Ipratropium (Duoneb Neb) 1 ampule Q2HR NEB PRN INH WHEEZING Last administered on 07/09/17 16:02; Start 07/05/17 at 13:15 Sodium Chloride 1,000 ml @ 60 mls/hr [id number] IV Last administered on 07/12/17 06:53; Start 07/05/17 at 15:00 Famotidine (Pepcid Inj) 20 mg Q12HR IV PUSH Last administered on 07/12/17 08:04 ; Start 07/05/17 at 21:00 Ondansetron HCl (Zofran Inj) 4 mg Q6H PRN IV NAUSEA OR VOMITING; Start at 13:15 Miscellaneous Information 1 [id number] Last administered on 07/06/17 04:47; Start 07/05/17 at 13:15 Chlorhexidine Gluconate (Chlorhexidine 2% Cloth) Taper DAILY@04 TOP Last administered on 07/10/17 04:00; Start 07/06/17 at 04:00; Stop 07/02/18 at 03:59 Chlorhexidine Gluconate (Chlorhexidine 2% Cloth) 3 pack UNSCH PRN TOP HYGIENIC CARE; Start 07/05/17 at 13:15 Senna/Docusate Sodium (Anita-Colace) 1 tab BID PO Last administered on 07/11/17 20:58; Start 07/05/17 at 21:00 Midazolam HCl (Versed Inj) 5 mg ONCE ONCE IV PUSH Last administered on 16:19; Start 07/05/17 at 13:30; Stop 07/05/17 at 13:31; Status DC Midazolam HCl (Versed Inj) 5 mg STK-MED ONCE .ROUTE ; Start 07/05/17 at 13:26; Stop 07/05/17 at 13:27; Status DC Midazolam HCl 100 ml @ 2 mls/hr Q50H PRN IV SEDATION; Start 07/05/17 at 13:37; Stop 07/08/17 at 16:57; Status DC Fentanyl Citrate 250 ml @ 5 mls/hr Q50H PRN IV SEDATION Last administered on 09:10; Start 07/05/17 at 13:37; Stop 07/08/17 at 09:42; Status DC Iohexol (Omnipaque 350 Inj) 80 ml STK-MED ONCE IVCONTRAST Last administered on 07/05/17 14:14; Start 07/05/17 at 14:14; Stop 07/05/17 at 14:16; Status DC Propofol 100 ml @ 1.8 mls/hr TITRATE PRN IV SEDATION Last administered on 07/05 20:14; Start 07/05/17 at 16:00 Alteplase, Recombinant (Activase Bolus) 5.4 mg ONCE ONCE IV Last administered on 07/05/17 16:16; Start 07/05/17 at 15:15; Stop 07/05/17 at 15:18; Status DC Alteplase, Recombinant 48.5 mg/Syringe / Bag 48.5 ml @ 48.5 mls/hr ONCE ONCE IV Last administered on 07/05/17 16:17; Start 07/05/17 at 15:15; Stop at 16:14; Status DC Sodium Chloride (NS Inj) 30 ml ONCE ONCE IVF ; Start 07/05/17 at 15:15; Stop at 15:18; Status DC Miscellaneous Information No Heparin, Warfarin, Aspir... UNSCH PRN XX SEE DOSE INSTRUCTIONS; Start 07/05/17 at 15:15; Stop 07/06/17 at 15:14; Status DC Verapamil HCl (Isoptin Inj) 10 mg STK-MED ONCE .ROUTE Last administered on 07/05 15:23; Start 07/05/17 at 15:23; Stop 07/05/17 at 15:24; Status DC Sodium Chloride 1,000 ml @ 999 mls/hr Q1H IV Last administered on 07/06/17 00 :00; Start 07/05/17 at 23:00; Stop 07/06/17 at 00:59; Status DC Hydralazine HCl (Apresoline) 25 mg Q8HR PO Last administered on 07/12/17 05:23 ; Start 07/06/17 at 08:45 Metoprolol Tartrate (Lopressor) 12.5 mg Q12HR PO Last administered on 07/09/17 10:52; Start 07/06/17 at 09:00; Stop 07/09/17 at 14:42; Status DC Aspirin (Aspirin Supp) 300 mg DAILY RECTAL Last administered on 07/11/17 10:06 ; Start 07/07/17 at 09:00; Stop 07/12/17 at 09:40; Status DC Dexmedetomidine HCl (Precedex Inj) 30 mcg ONCE ONCE IV PUSH ; Start 07/06/17 at 21:30; Stop 07/06/17 at 21:31; Status DC Dexmedetomidine HCl 200 mcg/ Sodium Chloride 52 ml @ 3.1 mls/hr [id number] PRN IV SEDATION Last administered on 07/08/17 06:16; Start 07/06/17 at 21:18 Dextrose (D50w (Syr) Inj) 50 ml STK-MED ONCE .ROUTE ; Start 07/07/17 at 00:55; Stop 07/07/17 at 00:56; Status DC Haloperidol Lactate (Haldol Inj) 5 mg Q6H PRN IV AGITATION Last administered on 07/07/17 11:32; Start 07/07/17 at 03:00; Stop 07/07/17 at 15:01; Status DC Ziprasidone (Geodon Inj) 10 mg Q8H PRN IM AGITATION Last administered on 22:19; Start 07/07/17 at 15:00; Stop 07/08/17 at 09:42; Status DC Paroxetine HCl (Paxil) 20 mg DAILY PO Last administered on 07/12/17 08:04; Start 07/08/17 at 09:45 Metoprolol Tartrate (Lopressor Inj) 5 mg ONCE IV PUSH ; Start 07/08/17 at 14:00 ; Stop 07/08/17 at 23:59; Status DC Metoprolol Tartrate (Lopressor) 25 mg Q12HR PO Last administered on 07/08/17 21:00; Start 07/08/17 at 21:00; Stop 07/09/17 at 14:42; Status DC Midazolam HCl 100 ml @ 2 mls/hr TITRATE PRN IV SEDATION; Start 07/08/17 at 17: 00 Metoprolol Tartrate (Lopressor) 50 mg Q12HR PO Last administered on 07/12/17 08 :04; Start 07/09/17 at 21:00 Atorvastatin Calcium (Lipitor) 40 mg HS PO Last administered on 07/11/17 20:57 ; Start 07/09/17 at 21:00 Lorazepam (Ativan Inj) 0.5 mg UNSCH X1 PRN IV PUSH [employer] TO MRI; Start at 16:45; Stop 07/10/17 at 16:44; Status DC Metoprolol Tartrate (Lopressor Inj) 5 mg ONCE ONCE IV PUSH ; Start 07/09/17 at 21:45; Stop 07/09/17 at 21:46; Status DC Lorazepam (Ativan Inj) 0.2 mg Q4H PRN IV PUSH anxiety Last administered on 22:41; Start 07/09/17 at 21:45 Lorazepam (Ativan Inj) 0.5 mg UNSCH X1 PRN IV PUSH [employer]IST TO MRI Last administered on 07/10/17 21:46; Start 07/10/17 at 20:00; Stop 07/10/17 at 23:00; Status DC Levetriacetam (Keppra) 500 mg Q12HR PO Last administered on 07/12/17 10:21; Start 07/12/17 at 09:45 Aspirin (Aspirin) 325 mg DAILY PO ; Start 07/13/17 at 09:00 Aspirin (Aspirin) 325 mg ONCE ONCE PO Last administered on 07/12/17 10:21; Start 07/12/17 at 09:45; Stop 07/12/17 at 10:15; Status DC Urinary Catheter: No Vascular Central Line Catheter: No A/P Assessment and Plan Acute left MCA CVA status post systemic TPA Failed attempt at mechanical thrombectomy Concern for possible Seizure activity - frequent neuro checks - repeat interval head CT - neuro consult appreciated - portable EEG>> per neuro if came positive need to start Keppra -Start statin, continue blood pressure monitoring and further control Acute hypoxic and hypercarbic respiratory failure improved - avoid hypercarbia - wean fio2 for spo2 > 90% - hob at 30 degrees, nebs, vent bundle - no sedation. RESOLVED History of Hypertension History of Hyperlipidemia - Lipitor - needs ASA after TPA window, defer to neurology to start - 2d echo reviewed -Resume blood pressure control increase Lopressor on 07/09 -Status post labetalol, hydralazine and cardene prn. ON PO ASA 325 MG PO DAILY - [place] for accurate I/Os -- Strict I/Os CHECK UA WITH C/S DC [place] FEN/GI: Acute protein calorie malnutrition- moderate - daily bmp - NS @ 84cc/hr. - prevent hypovolemia. - Swallow eval -> feed. NECTAR THICK AND PUREED DIET GI Prophylaxis - Pepcid DVT Prophylaxis -- SCDs -Status post TPA, chemical when okay with NEUROLOGY POSSIBLE SEIZURE ACTIVITY ABNORMAL EKG START KEPPRA 500MG PO BID OK TO TRANSFER OFF FLOOR SUSPECTED UTI START ROCEPHIN UNTIL CULTURES BACK RESTART HOME METOPROLOL HEPLOCK IV OK FOR FLOOR PT, OT, ST Grieper,Martinez M. DO Jul 12, 2017 11:27
[2017-07-12] MEDS: cefTRIAXone INJ 1,000 MG in SODIUM CHLORIDE 0.9% INJ 100 ML IV SCH (12:36)
[2017-07-12] MEDS: LORazepam 2 MG/ML VIAL IV PUSH PRN (14:01)
[2017-07-12] MEDS ORDERED: LORazepam 2 MG/ML VIAL IV PUSH PRN (16:15)
[2017-07-12] MEDS: ATORVASTATIN 40 MG TAB PO SCH (21:27)
[2017-07-12] MEDS: hydrALAZINE HCL 20 MG/ML VIAL IV PUSH PRN (22:21)
[2017-07-13] VITALS (7 sets, daily range): BP systolic 126–160; BP diastolic 63–77; PULSE 63–111; RESP 15–26; TEMP 96.5–99.1; O2SAT 93–98
[2017-07-13] MEDS: CHLORHEXIDINE GLUCONATE 2 % 1 PACK (2 CLOTHS) TOP SCH (04:00)
[2017-07-13] MEDS: hydrALAZINE HCL 25 MG TAB PO SCH ×3 (06:03→22:42)
[2017-07-13] MEDS: CHLORHEXIDINE 0.12% (ORAL KIT) 15 ML CUP MT SCH ×2 (08:00→20:15)
[2017-07-13] MEDS: levETIRAcetam 500 MG TAB PO SCH ×2 (08:07→20:16)
[2017-07-13] MEDS: FAMOTIDINE 20 MG/2 ML VIAL IV PUSH SCH ×2 (08:07→20:16)
[2017-07-13] MEDS: PARoxetine HCL 20 MG TAB PO SCH (08:07)
[2017-07-13] MEDS: DOCUSATE SODIUM 50 MG/SENNA 8.6 MG TAB PO SCH ×2 (08:07→20:17)
[2017-07-13] MEDS: ASPIRIN 325 MG TAB PO SCH (08:07)
[2017-07-13] MEDS: METOPROLOL TARTRATE 25 MG TAB PO SCH ×4 (08:09→20:18)
--- NOTE | 2017-07-13 11:13 | HHI.PR ---
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 9-3 had swallow eval with speech on nectar thick liquids and pureed diet will check UA AM LABS PT,OT, ST MRIS REVIEWED -4 patient had abnormal EEG will start on Keppra 500MG by mouth twice a day Hep-Lock IV Transfer out of ICU A.m. labs Physical therapy occupational therapy speech therapy Will need SNF or need to go home with family Remains confused States she was at the [employer] 07-13 PATIENT BECAME QUITE CONFUSED YESTERDAY- NEEDED SOFT RESTRAINTS AND ATIVAN IS VERY LETHARGIC TODAY DW RN AND FAMILY NO NEW COMPLAINTS TRANSFER OUT OF ICU AM LABS CONTINUE RESTRAINTS Objective Vitals Vital Signs Date Time Temp Pulse Resp B/P (MAP) Pulse Ox O2 Delivery O2 Flow Rate FiO2 07/13/17 09:14 96 21 07/13/17 08:00 93 07/13/17 08:00 98.5 99 21 160/77 (104) 93 07/13/17 07:00 93 Room Air 07/13/17 04:00 77 07/13/17 04:00 97.8 77 20 144/65 (91) 94 07/13/17 00:00 98.0 79 26 148/69 (95) 94 07/13/17 00:00 78 07/12/17 20:00 98.0 77 25 169/69 (102) 93 07/12/17 20:00 81 07/12/17 19:54 98 21 07/12/17 19:00 93 Room Air 07/12/17 16:00 75 07/12/17 16:00 97.5 75 26 155/67 (96) 98 07/12/17 12:00 98.1 67 12 157/70 (99) 100 07/12/17 12:00 67 I/O 07/12/17 07/12/17 07/12/17 07/13/17 07/13/17 07/13/17 07:00 15:00 23:00 07:00 15:00 23:00 Intake Total 1240 ml 340 ml 1024 ml 360 ml Balance 1240 ml 340 ml 1024 ml 360 ml Intake Oral 240 ml 580 ml 360 ml IV Total 1000 ml 340 ml 444 ml # Voids 5 4 6 # Bowel Movements 3 2 0 Result Diagram: 07/12/17 0650 07/12/17 0650 Other Results Laboratory Tests Test 07/10/17 18:40 07/11/17 11:03 07/11/17 15:45 07/12/17 06:50 Potassium Level 3.5 MEQ/L 4.5 MEQ/L 3.7 MEQ/L Magnesium Level 1.4 MG/DL 2.3 MG/DL 1.8 MG/DL White Blood Count 8.7 TH/MM3 9.2 TH/MM3 Red Blood Count 4.15 MIL/MM3 3.45 MIL/MM3 Hemoglobin 11.9 GM/DL 10.3 GM/DL Hematocrit 37.2 % 30.5 % Mean Corpuscular Volume 89.8 FL 88.4 FL Mean Corpuscular Hemoglobin 28.7 PG 29.8 PG Mean Corpuscular Hemoglobin Concent 32.0 % 33.7 % Red Cell Distribution Width 17.5 % 17.5 % Platelet Count 286 TH/MM3 410 TH/MM3 Mean Platelet Volume 7.5 FL 8.1 FL Hematology Comments Blood Urea Nitrogen 11 MG/DL 11 MG/DL Creatinine 0.45 MG/DL 0.53 MG/DL Random Glucose 82 MG/DL 115 MG/DL Calcium Level 8.7 MG/DL 8.2 MG/DL Sodium Level 136 MEQ/L 138 MEQ/L Chloride Level 103 MEQ/L 105 MEQ/L Carbon Dioxide Level 21.4 MEQ/L 23.4 MEQ/L Anion Gap 12 MEQ/L 10 MEQ/L Estimat Glomerular Filtration Rate 134 ML/MIN 111 ML/MIN Urine Color YELLOW Urine Turbidity HAZY Urine pH 7.5 Urine Specific [place] 1.014 Urine Protein NEG mg/dL Urine Glucose (UA) NEG mg/dL Urine Ketones TRACE mg/dL Urine Occult Blood NEG Urine Nitrite POS Urine Bilirubin NEG Urine Urobilinogen LESS THAN 2.0 MG/DL Urine Leukocyte Esterase LARGE Urine RBC 6 /hpf Urine WBC 102 /hpf Urine Squamous Epithelial Cells 3 /hpf Urine Transitional Epithelial Cells 2 /hpf Urine Amorphous Sediment RARE Urine Bacteria MANY /hpf Urine Mucus FEW /lpf Microscopic Urinalysis Comment CULTURE INDICATED Neutrophils (%) (Auto) 76.1 % Lymphocytes (%) (Auto) 8.1 % Monocytes (%) (Auto) 10.6 % Eosinophils (%) (Auto) 4.1 % Basophils (%) (Auto) 1.1 % Neutrophils # (Auto) 7.0 TH/MM3 Lymphocytes # (Auto) 0.7 TH/MM3 Monocytes # (Auto) 1.0 TH/MM3 Eosinophils # (Auto) 0.4 TH/MM3 Basophils # (Auto) 0.1 TH/MM3 CBC Comment DIFF FINAL Differential Comment Total Protein 5.9 GM/DL Albumin 2.5 GM/DL Phosphorus Level 2.9 MG/DL Alkaline Phosphatase 100 U/L Aspartate Amino Transf (AST/SGOT) 20 U/L Alanine Aminotransferase (ALT/SGPT) 25 U/L Total Bilirubin 0.7 MG/DL Hemoglobin A1c 5.2 % Free Thyroxine 1.13 NG/DL Thyroid Stimulating Hormone 3rd Gen 2.830 uIU/ML Imaging Last Impressions Head Magnetic Resonance Angiography 07/10/17 0000 Signed Impressions: Service Date/Time: Monday, July 10, 2017 20:45 - CONCLUSION: Normal examination for a patient of this age. Olvin Palomo MD Brain MRI 07/10/17 0000 Signed Impressions: Service Date/Time: Monday, July 10, 2017 20:45 - CONCLUSION: 1. Single tiny area of apparent restricted diffusion in the deep right parietal lobe of concern for a small area of lacunar type infarction. 2. Atrophy and chronic small vessel ischemic change. 3. Comment CSF-containing space in the posterior fossa most characteristic of an arachnoid cyst. Jean Oden MD Chest X-Ray 07/06/17 0600 Signed Impressions: Service Date/Time: Thursday, July 06, 2017 04:18 - CONCLUSION: No acute cardiopulmonary abnormality is identified. Rylan Dorantes MD Head CT 07/06/17 0000 Signed Impressions: Service Date/Time: Thursday, July 06, 2017 14:51 - CONCLUSION: Stable CT brain scan intracranially with no acute change. Small air-fluid levels posteriorly in right maxillary sinus and left sphenoid sinus compartment which could represent acute sinusitis. Venu Grewal MD Central Venous Line 07/05/17 1701 Signed Impressions: Service Date/Time: Wednesday, July 05, 2017 17:01 - CONCLUSION: Uncomplicated line placement as above. Stevie Valles MD Neck CTA 07/05/17 0000 Signed Impressions: Service Date/Time: Wednesday, July 05, 2017 14:05 - CONCLUSION: Moderate calcification is present without evidence for hemodynamically significant stenosis. Martinez Adame MD FACR Head CTA 07/05/17 0000 Signed Impressions: Service Date/Time: Wednesday, July 05, 2017 14:05 - CONCLUSION: 1. 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 The patient is to undergo cerebral angiography Stevie Valles MD Cerebral Arteriogram 07/05/17 0000 Signed Impressions: Service Date/Time: Wednesday, July 05, 2017 15:07 - CONCLUSION: 1. No evidence of vessel occlusion. Asymmetric no cerebral arteries as above Stevie Valles MD Objective Remarks GENERAL: This is a well-nourished, well-developed patient, in no apparent distress. LETHARGIC DUE TO MEDICATIONS AT THIS TIME SKIN: No rashes, warm and dry HEAD: Atraumatic. Normocephalic. EYES: Pupils equal round and reactive. Extraocular motions intact. No scleral icterus. ENT: Nose without bleeding, or drainage, Airway patent. TONGUE MIDLINE ORAL MUCOSA MOIST NECK: Trachea midline. Supple CARDIOVASCULAR: Regular rate and rhythm without murmurs, gallops, or rubs. S1, S2 NO S3 OR S4 NO HEAVE OR THRILL RESPIRATORY: Fair air entry bilaterally. No wheezes, rales, or rhonchi. CTA BL GASTROINTESTINAL: Abdomen soft, non-tender, nondistended. Positive bowel sounds MUSCULOSKELETAL: Extremities without clubbing, cyanosis, or edema. Pedal pulses appreciated NEUROLOGICAL: LETHARGIC AT THIS TIME, Moves all extremity. SOME WORD FINDING ISSUES ON NEW QUESTIONS- GOOD WITH OLD HISTORICAL QUESTIONS INSIGHT AND JUDGEMENT ARE LIMITED MOOD AND BEHAVIOR ARE SOMEWHAT INAPPROPRIATE Moves all 4 extremities motor strength is 5 out of 5 in upper extremity and lower extremity bilaterally Procedures SP TPA Medications and IVs Current Medications Sodium Chloride 1,000 ml @ 70 mls/hr [id number] ONCE IV ; Start 07/05/17 at 11:45 ; Stop 07/05/17 at 14:54; Status DC Propofol 100 ml @ As Directed STK-MED ONCE .ROUTE Last administered on t 17:21; Start 07/05/17 at 12:22; Stop 07/05/17 at 12:23; Status DC Propofol 100 ml @ 0 mls/hr Q0M IV ; Start 07/05/17 at 13:13; Status UNV Labetalol HCl (Trandate Inj) 20 mg Q15M PRN IV PUSH sbp > 160 Last administered on 07/11/17 03:04; Start 07/05/17 at 13:15 Hydralazine HCl (Apresoline Inj) 10 mg Q30M PRN IV PUSH sbp > 160 Last administered on 07/12/17 22:21; Start 07/05/17 at 13:15 Magnesium Oxide (Mag-Ox) 800 mg UNSCH PRN PO For Magnesium 1.2 - 1.6 mg/dL; Start 07/05/17 at 13:15 Magnesium Sulfate 4 gm/Sodium Chloride 100 ml @ 50 mls/hr UNSCH PRN IV For Magnesium 0.9 - 1.1 mg/dL; Start 07/05/17 at 13:15 Magnesium Sulfate 2 gm/Sodium Chloride 100 ml @ 50 mls/hr UNSCH PRN IV For Magnesium 1.2 - 1.6 mg/dL Last administered on 07/11/17 06:23; Start 07/05/17 at 13:15 Potassium Chloride 100 ml @ 50 mls/hr Q2H PRN IV For Potassium 2.8 - 3.2 mEq/L ; Start 07/05/17 at 13:15 Potassium Chloride 100 ml @ 50 mls/hr Q2H PRN IV For Potassium 3.3 - 3.5 mEq/ L Last administered on 07/11/17 04:12; Start 07/05/17 at 13:15 Potassium Chloride 100 ml @ 50 mls/hr Q2H PRN IV For Potassium 2.8 - 3.2 mEq/ L Last administered on 07/07/17 08:06; Start 07/05/17 at 13:15 Potassium Chloride 100 ml @ 25 mls/hr UNSCH PRN IV For Potassium 3.3 - 3.5 mEq /L Last administered on 07/10/17 09:08; Start 07/05/17 at 13:15 Potassium Phosphate (K-Phos) 2,000 mg Q4H PRN PO For Phosphorus < 2.5 mg/dL; Start 07/05/17 at 13:15 Potassium Phosphate (K-Phos) 2,000 mg UNSCH PRN PO/TUBE SEE LABEL COMMENTS; Start 07/05/17 at 13:15 Potassium Phosphate 30 mmol/ Sodium Chloride 260 ml @ 42 mls/hr UNSCH PRN IV SEE LABEL COMMENTS; Start 07/05/17 at 13:15 Sodium Phosphate 30 mmol/Sodium Chloride 250 ml @ 42 mls/hr UNSCH PRN IV For Phosphorus < 2.5 mg/dL; Start 07/05/17 at 13:15 Chlorhexidine Gluconate (Peridex 0.12% Liq) 15 ml BID@08,20 MT Last administered on 07/12/17 20:00; Start 07/05/17 at 20:00 Dextrose (D50w (Vial) Inj) 25 ml UNSCH PRN IV PUSH HYPOGLYCEMIA-SEE COMMENTS Last administered on 07/07/17 00:56; Start 07/05/17 at 13:15 Insulin Human Regular (NovoLIN R SUPPLEMENTAL SCALE) 1 Q6HR SQ ; Start 07/05/17 at 18:00; Stop 07/12/17 at 09:39; Status DC Albuterol/ Ipratropium (Duoneb Neb) 1 ampule Q6HR NEB INH Last administered on 07/09/17 07:56; Start 07/05/17 at 16:00; Stop 07/09/17 at 15:59; Status DC Albuterol/ Ipratropium (Duoneb Neb) 1 ampule Q2HR NEB PRN INH WHEEZING Last administered on 07/09/17 16:02; Start 07/05/17 at 13:15 Sodium Chloride 1,000 ml @ 60 mls/hr [id number] IV Last administered on 07/12/17 06:53; Start 07/05/17 at 15:00; Stop 07/12/17 at 11:20; Status DC Famotidine (Pepcid Inj) 20 mg Q12HR IV PUSH Last administered on 07/13/17 08:07 ; Start 07/05/17 at 21:00 Ondansetron HCl (Zofran Inj) 4 mg Q6H PRN IV NAUSEA OR VOMITING; Start at 13:15 Miscellaneous Information 1 Q361D XX Last administered on 07/06/17 04:47; Start 07/05/17 at 13:15 Chlorhexidine Gluconate (Chlorhexidine 2% Cloth) Taper DAILY@04 TOP Last administered on 07/13/17 04:00; Start 07/06/17 at 04:00; Stop 07/02/18 at 03:59 Chlorhexidine Gluconate (Chlorhexidine 2% Cloth) 3 pack UNSCH PRN TOP HYGIENIC CARE; Start 07/05/17 at 13:15 Senna/Docusate Sodium (Anita-Colace) 1 tab BID PO Last administered on 07/13/17 08:07; Start 07/05/17 at 21:00 Midazolam HCl (Versed Inj) 5 mg ONCE ONCE IV PUSH Last administered on 16:19; Start 07/05/17 at 13:30; Stop 07/05/17 at 13:31; Status DC Midazolam HCl (Versed Inj) 5 mg STK-MED ONCE .ROUTE ; Start 07/05/17 at 13:26; Stop 07/05/17 at 13:27; Status DC Midazolam HCl 100 ml @ 2 mls/hr Q50H PRN IV SEDATION; Start 07/05/17 at 13:37; Stop 07/08/17 at 16:57; Status DC Fentanyl Citrate 250 ml @ 5 mls/hr Q50H PRN IV SEDATION Last administered on 09:10; Start 07/05/17 at 13:37; Stop 07/08/17 at 09:42; Status DC Iohexol (Omnipaque 350 Inj) 80 ml STK-MED ONCE IVCONTRAST Last administered on 07/05/17 14:14; Start 07/05/17 at 14:14; Stop 07/05/17 at 14:16; Status DC Propofol 100 ml @ 1.8 mls/hr TITRATE PRN IV SEDATION Last administered on 07/05 20:14; Start 07/05/17 at 16:00 Alteplase, Recombinant (Activase Bolus) 5.4 mg ONCE ONCE IV Last administered on 07/05/17 16:16; Start 07/05/17 at 15:15; Stop 07/05/17 at 15:18; Status DC Alteplase, Recombinant 48.5 mg/Syringe / Bag 48.5 ml @ 48.5 mls/hr ONCE ONCE IV Last administered on 07/05/17 16:17; Start 07/05/17 at 15:15; Stop at 16:14; Status DC Sodium Chloride (NS Inj) 30 ml ONCE ONCE IVF ; Start 07/05/17 at 15:15; Stop at 15:18; Status DC Miscellaneous Information No Heparin, Warfarin, Aspir... UNSCH PRN XX SEE DOSE INSTRUCTIONS; Start 07/05/17 at 15:15; Stop 07/06/17 at 15:14; Status DC Verapamil HCl (Isoptin Inj) 10 mg STK-MED ONCE .ROUTE Last administered on 07/05 15:23; Start 07/05/17 at 15:23; Stop 07/05/17 at 15:24; Status DC Sodium Chloride 1,000 ml @ 999 mls/hr Q1H IV Last administered on 07/06/17 00 :00; Start 07/05/17 at 23:00; Stop 07/06/17 at 00:59; Status DC Hydralazine HCl (Apresoline) 25 mg Q8HR PO Last administered on 07/13/17 06:03 ; Start 07/06/17 at 08:45 Metoprolol Tartrate (Lopressor) 12.5 mg Q12HR PO Last administered on 07/09/17 10:52; Start 07/06/17 at 09:00; Stop 07/09/17 at 14:42; Status DC Aspirin (Aspirin Supp) 300 mg DAILY RECTAL Last administered on 07/11/17 10:06 ; Start 07/07/17 at 09:00; Stop 07/12/17 at 09:40; Status DC Dexmedetomidine HCl (Precedex Inj) 30 mcg ONCE ONCE IV PUSH ; Start 07/06/17 at 21:30; Stop 07/06/17 at 21:31; Status DC Dexmedetomidine HCl 200 mcg/ Sodium Chloride 52 ml @ 3.1 mls/hr [id number] PRN IV SEDATION Last administered on 07/08/17 06:16; Start 07/06/17 at 21:18 Dextrose (D50w (Syr) Inj) 50 ml STK-MED ONCE .ROUTE ; Start 07/07/17 at 00:55; Stop 07/07/17 at 00:56; Status DC Haloperidol Lactate (Haldol Inj) 5 mg Q6H PRN IV AGITATION Last administered on 07/07/17 11:32; Start 07/07/17 at 03:00; Stop 07/07/17 at 15:01; Status DC Ziprasidone (Geodon Inj) 10 mg Q8H PRN IM AGITATION Last administered on 22:19; Start 07/07/17 at 15:00; Stop 07/08/17 at 09:42; Status DC Paroxetine HCl (Paxil) 20 mg DAILY PO Last administered on 07/13/17 08:07; Start 07/08/17 at 09:45 Metoprolol Tartrate (Lopressor Inj) 5 mg ONCE IV PUSH ; Start 07/08/17 at 14:00 ; Stop 07/08/17 at 23:59; Status DC Metoprolol Tartrate (Lopressor) 25 mg Q12HR PO Last administered on 07/08/17 21:00; Start 07/08/17 at 21:00; Stop 07/09/17 at 14:42; Status DC Midazolam HCl 100 ml @ 2 mls/hr TITRATE PRN IV SEDATION; Start 07/08/17 at 17: 00 Metoprolol Tartrate (Lopressor) 50 mg Q12HR PO Last administered on 07/13/17 08 :09; Start 07/09/17 at 21:00 Atorvastatin Calcium (Lipitor) 40 mg HS PO Last administered on 07/12/17 21:27 ; Start 07/09/17 at 21:00 Lorazepam (Ativan Inj) 0.5 mg UNSCH X1 PRN IV PUSH DOCTOR OF NURSE ANESTHESIA TO MRI; Start at 16:45; Stop 07/10/17 at 16:44; Status DC Metoprolol Tartrate (Lopressor Inj) 5 mg ONCE ONCE IV PUSH ; Start 07/09/17 at 21:45; Stop 07/09/17 at 21:46; Status DC Lorazepam (Ativan Inj) 0.2 mg Q4H PRN IV PUSH anxiety Last administered on 14:01; Start 07/09/17 at 21:45; Stop 07/12/17 at 16:08; Status DC Lorazepam (Ativan Inj) 0.5 mg UNSCH X1 PRN IV PUSH DOCTOR OF NURSE ANESTHESIA TO MRI Last administered on 07/10/17 21:46; Start 07/10/17 at 20:00; Stop 07/10/17 at 23:00; Status DC Levetriacetam (Keppra) 500 mg Q12HR PO Last administered on 07/13/17 08:07; Start 07/12/17 at 09:45 Aspirin (Aspirin) 325 mg DAILY PO Last administered on 07/13/17 08:07; Start at 09:00 Aspirin (Aspirin) 325 mg ONCE ONCE PO Last administered on 07/12/17 10:21; Start 07/12/17 at 09:45; Stop 07/12/17 at 10:15; Status DC Ceftriaxone Sodium 1000 mg/ Sodium Chloride 100 ml @ 200 mls/hr Q24H IV Last administered on 07/12/17 12:36; Start 07/12/17 at 12:00 Metoprolol Tartrate (Lopressor) 12.5 mg BID PO Last administered on 07/13/17 08 :09; Start 07/12/17 at 21:00 Lorazepam (Ativan Inj) 0.5 mg Q4H PRN IV PUSH ANXIETY AND/OR AGITATION Last administered on 07/12/17 23:32; Start 07/12/17 at 16:15; Stop 07/13/17 at 11:06; Status DC Lorazepam (Ativan Inj) 0.3 mg Q4H PRN IV PUSH ANXIETY AND/OR AGITATION; Start 07/13/17 at 12:15; Status UNV Urinary Catheter: Yes Assessment to: Continue Vascular Central Line Catheter: No A/P Assessment and Plan Acute left MCA CVA status post systemic TPA Failed attempt at mechanical thrombectomy Concern for possible Seizure activity - frequent neuro checks - repeat interval head CT - neuro consult appreciated - portable EEG>> per neuro if came positive need to start Keppra -Start statin, continue blood pressure monitoring and further control Acute hypoxic and hypercarbic respiratory failure improved - avoid hypercarbia - wean fio2 for spo2 > 90% - hob at 30 degrees, nebs, vent bundle - no sedation. RESOLVED History of Hypertension History of Hyperlipidemia - Lipitor - needs ASA after TPA window, defer to neurology to start - 2d echo reviewed -Resume blood pressure control increase Lopressor on 07/09 -Status post labetalol, hydralazine and cardene prn. ON PO ASA 325 MG PO DAILY - [place] for accurate I/Os -- Strict I/Os CHECK UA WITH C/S DC [place] FEN/GI: Acute protein calorie malnutrition- moderate - daily bmp - NS @ 84cc/hr. - prevent hypovolemia. - Swallow eval -> feed. NECTAR THICK AND PUREED DIET GI Prophylaxis - Pepcid DVT Prophylaxis -- SCDs -Status post TPA, chemical when okay with NEUROLOGY POSSIBLE SEIZURE ACTIVITY ABNORMAL EKG START KEPPRA 500MG PO BID OK TO TRANSFER OFF FLOOR SUSPECTED UTI--POSITIVE Klebsiella oxytociA START ROCEPHIN UNTIL CULTURES BACK RESTART HOME METOPROLOL HEPLOCK IV OK FOR FLOOR PT, OT, ST Restraints when necessary DW with RN and family patient lethargic at this time Martinez Diaz DO Jul 13, 2017 11:13
[2017-07-13] MEDS ORDERED: LORazepam 2 MG/ML VIAL IV PUSH PRN (12:15)
[2017-07-13] MEDS: cefTRIAXone INJ 1,000 MG in SODIUM CHLORIDE 0.9% INJ 100 ML IV SCH (14:34)
[2017-07-13] MEDS: hydrALAZINE HCL 20 MG/ML VIAL IV PUSH PRN (14:34)
[2017-07-13 19:13] LABS: AUTOMATED NEUTROPHIL # 7.6 TH/MM3 (1.8-7.7); BASOPHIL # 0.1 TH/MM3 (0-0.2); BASOPHIL % 0.8 % (0.0-2.0); EOSINOPHIL # 0.4 TH/MM3 (0-0.4); EOSINOPHIL % 3.3 % (0.0-4.0); HEMATOCRIT 38.5 % (35.0-46.0); HEMO FLAGS DIFF FINAL; LYMPH % 9.9 % (9.0-44.0); LYMPHOCYTE # 1.1 TH/MM3 (1.0-4.8); MEAN CELL VOLUME 90.4 FL (80.0-100.0); MEAN CORPUSCULAR HEMOGLOBIN 29.1 PG (27.0-34.0); MEAN CORPUSCULAR HGB CONC 32.1 % (32.0-36.0); MONO % 14.3 % (0.0-8.0); NEUT % 71.7 % (16.0-70.0); PLATELET COUNT 566 TH/MM3 (150-450); RED BLOOD COUNT 4.25 MIL/MM3 (4.00-5.30); RED CELL DISTRIBUTION WIDTH 17.7 % (11.6-17.2); WHITE BLOOD COUNT 10.7 TH/MM3 (4.0-11.0)
[2017-07-13 19:43] LABS: ALKALINE PHOSPHATASE 122 U/L (45-117); ALT (GPT) 25 U/L (10-53); ANION GAP 11 MEQ/L (5-15); AST (GOT) 20 U/L (15-37); BICARBONATE 24.9 MEQ/L (21.0-32.0); BLOOD UREA NITROGEN 13 MG/DL (7-18); CHLORIDE 97 MEQ/L (98-107); GLOMERULAR FILTRATION RATE 96 ML/MIN (>89); MAGNESIUM 1.7 MG/DL (1.5-2.5); POTASSIUM 3.7 MEQ/L (3.5-5.1); SODIUM (NA) 133 MEQ/L (136-145)
[2017-07-13] MEDS: ATORVASTATIN 40 MG TAB PO SCH (20:17)
--- NOTE | 2017-07-13 20:18 | HHI.PR ---
Review/Management Diagnosis CVA--improved s/p tpa probable dementia. Plan continue asa and keppra case management consult to look into possible in patient rehab after dc. Diagnosis/Plan: Daily Summary 07/06 neuro hebert she was extubated and agitated but calmed down and followed commands moves 4 limbs well verbalizes words aware of children at bedside markedly improved!!! discussed with jonathan rodarte yesterday will add asa, status post tpa when more stable mri brain f/u ct negative 07/08 awake and following commands less agitated this am but combative yesterday requiring restraints dry mucosa TIA/Stroke, s/p tpa without focal motor deficits encephalopathy, some apparent dementia sx past year, any etoh hx? continue hydration and hopefully oob activities, diet etc soon Subjective Subjective Comments No acute events reported Active Medications Current Medications Medications (Trade) Dose Ordered Sig/[place] Route Start Time Stop Time Status Last Admin (Trandate Inj) 20 mg Q15M PRN IV PUSH 07/05/17 13:15 07/11/17 03:04 (Apresoline Inj) 10 mg Q30M PRN IV PUSH 07/05/17 13:15 07/13/17 14:34 (Mag-Ox) 800 mg UNSCH PRN PO 07/05/17 13:15 Magnesium Sulfate 4 gm/Sodium Chloride 100 ml @ 50 mls/hr UNSCH PRN IV 07/05/17 13:15 Magnesium Sulfate 2 gm/Sodium Chloride 100 ml @ 50 mls/hr UNSCH PRN IV 07/05/17 13:15 07/11/17 06:23 Potassium Chloride 100 ml @ 50 mls/hr Q2H PRN IV 07/05/17 13:15 Potassium Chloride 100 ml @ 50 mls/hr Q2H PRN IV 07/05/17 13:15 07/11/17 04:12 Potassium Chloride 100 ml @ 50 mls/hr Q2H PRN IV 07/05/17 13:15 07/07/17 08:06 Potassium Chloride 100 ml @ 25 mls/hr UNSCH PRN IV 07/05/17 13:15 07/10/17 09:08 (K-Phos) 2,000 mg Q4H PRN PO 07/05/17 13:15 (K-Phos) 2,000 mg UNSCH PRN PO/TUBE 07/05/17 13:15 Potassium Phosphate 30 mmol/ Sodium Chloride 260 ml @ 42 mls/hr UNSCH PRN IV 07/05/17 13:15 Sodium Phosphate 30 mmol/Sodium Chloride 250 ml @ 42 mls/hr UNSCH PRN IV 07/05/17 13:15 (Peridex 0.12% Liq) 15 ml BID@08,20 MT 07/05/17 20:00 07/12/17 20:00 (D50w (Vial) Inj) 25 ml UNSCH PRN IV PUSH 07/05/17 13:15 07/07/17 00:56 (Duoneb Neb) 1 ampule Q2HR NEB PRN INH 07/05/17 13:15 07/09/17 16:02 (Pepcid Inj) 20 mg Q12HR IV PUSH 07/05/17 21:00 07/13/17 08:07 (Zofran Inj) 4 mg Q6H PRN IV 07/05/17 13:15 Miscellaneous Information 1 Q361D XX 07/05/17 13:15 07/06/17 04:47 (Chlorhexidine 2% Cloth) Taper DAILY@04 TOP 07/06/17 04:00 07/02/18 03:59 07/13/17 04:00 (Chlorhexidine 2% Cloth) 3 pack UNSCH PRN TOP 07/05/17 13:15 (Anita-Colace) 1 tab BID PO 07/05/17 21:00 07/13/17 08:07 Propofol 100 ml @ 1.8 mls/hr TITRATE PRN IV 07/05/17 16:00 07/05/17 20:14 (Apresoline) 25 mg Q8HR PO 07/06/17 08:45 07/13/17 06:03 Dexmedetomidine HCl 200 mcg/ Sodium Chloride 52 ml @ 3.1 mls/hr [id number] PRN IV 07/06/17 21:18 07/08/17 06:16 (Paxil) 20 mg DAILY PO 07/08/17 09:45 07/13/17 08:07 Midazolam HCl 100 ml @ 2 mls/hr TITRATE PRN IV 07/08/17 17:00 (Lopressor) 50 mg Q12HR PO 07/09/17 21:00 07/13/17 08:09 (Lipitor) 40 mg HS PO 07/09/17 21:00 07/12/17 21:27 (Keppra) 500 mg Q12HR PO 07/12/17 09:45 07/13/17 08:07 (Aspirin) 325 mg DAILY PO 07/13/17 09:00 07/13/17 08:07 Ceftriaxone Sodium 1000 mg/ Sodium Chloride 100 ml @ 200 mls/hr Q24H IV 07/12/17 12:00 07/13/17 14:34 (Lopressor) 12.5 mg BID PO 07/12/17 21:00 07/13/17 08:09 (Ativan Inj) 0.3 mg Q4H PRN IV PUSH 07/13/17 12:15 Allergies Allergies Coded Allergies metronidazole (Verified Allergy, Unknown, HIVES, 07/07/17) Exam I&O / VS 07/13/17 07/13/17 07/14/17 14:59 22:59 06:59 Intake Total 432 ml Balance 432 ml Intake Oral 230 ml IV Total 202 ml # Voids 4 # Bowel Movements 0 Vital Signs Date Time Temp Pulse Resp B/P (MAP) Pulse Ox O2 Delivery O2 Flow Rate FiO2 07/13/17 16:00 98.6 79 23 126/68 (87) 96 07/13/17 16:00 79 07/13/17 12:00 63 07/13/17 12:00 96.5 63 15 137/63 (87) 98 07/13/17 09:14 96 21 07/13/17 08:00 93 07/13/17 08:00 98.5 99 21 160/77 (104) 93 07/13/17 07:00 93 Room Air 07/13/17 04:00 77 07/13/17 04:00 97.8 77 20 144/65 (91) 94 07/13/17 00:00 98.0 79 26 148/69 (95) 94 07/13/17 00:00 78 Exam Comments lethargic but arousable CN intact Motor--no gross asymmetry Objective Radiology Results MRI brain--small left lacunar cva Micro and Labs Laboratory Tests Test 07/13/17 17:00 White Blood Count 10.7 Red Blood Count 4.25 Hemoglobin 12.4 Hematocrit 38.5 Mean Corpuscular Volume 90.4 Mean Corpuscular Hemoglobin 29.1 Mean Corpuscular Hemoglobin Concent 32.1 Red Cell Distribution Width 17.7 Platelet Count 566 Mean Platelet Volume 7.6 Neutrophils (%) (Auto) 71.7 Lymphocytes (%) (Auto) 9.9 Monocytes (%) (Auto) 14.3 Eosinophils (%) (Auto) 3.3 Basophils (%) (Auto) 0.8 Neutrophils # (Auto) 7.6 Lymphocytes # (Auto) 1.1 Monocytes # (Auto) 1.5 Eosinophils # (Auto) 0.4 Basophils # (Auto) 0.1 CBC Comment DIFF FINAL Differential Comment Blood Urea Nitrogen 13 Creatinine 0.60 Random Glucose 78 Total Protein 7.3 Albumin 3.2 Calcium Level 9.1 Phosphorus Level 3.7 Magnesium Level 1.7 Alkaline Phosphatase 122 Aspartate Amino Transf (AST/SGOT) 20 Alanine Aminotransferase (ALT/SGPT) 25 Total Bilirubin 1.0 Sodium Level 133 Potassium Level 3.7 Chloride Level 97 Carbon Dioxide Level 24.9 Anion Gap 11 Estimat Glomerular Filtration Rate 96 Date/Time Source Procedure Growth Status 07/11/17 15:45 Urine Clean Catch Urine Culture - Final Klebsiella Oxytoca Complete Diagnostic Tests EEG--occasional sharp waves right hemisphere Jas Charles PhD MD Jul 13, 2017 20:17
[2017-07-14] VITALS (10 sets, daily range): BP systolic 132–163; BP diastolic 60–94; PULSE 66–103; RESP 17–20; TEMP 97.3–99; O2SAT 93–99
[2017-07-14] MEDS: CHLORHEXIDINE GLUCONATE 2 % 1 PACK (2 CLOTHS) TOP SCH (03:04)
[2017-07-14] MEDS: hydrALAZINE HCL 25 MG TAB PO SCH ×3 (05:03→21:34)
[2017-07-14] MEDS: CHLORHEXIDINE 0.12% (ORAL KIT) 15 ML CUP MT SCH ×2 (08:00→20:00)
[2017-07-14 08:34] LABS: ANION GAP 11 MEQ/L (5-15); AST (GOT) 22 U/L (15-37); BICARBONATE 24.1 MEQ/L (21.0-32.0); CHLORIDE 99 MEQ/L (98-107); GLOMERULAR FILTRATION RATE 95 ML/MIN (>89); MAGNESIUM 1.7 MG/DL (1.5-2.5); SODIUM (NA) 134 MEQ/L (136-145)
[2017-07-14 08:35] LABS: ALT (GPT) 23 U/L (10-53)
[2017-07-14 08:37] LABS: ALKALINE PHOSPHATASE 113 U/L (45-117); TOTAL BILIRUBIN ADULT 0.9 MG/DL (0.2-1.0)
[2017-07-14 08:40] LABS: BLOOD UREA NITROGEN 17 MG/DL (7-18)
[2017-07-14] MEDS: METOPROLOL TARTRATE 25 MG TAB PO SCH ×3 (09:00→21:30)
[2017-07-14] MEDS: PARoxetine HCL 20 MG TAB PO SCH (09:25)
[2017-07-14] MEDS: FAMOTIDINE 20 MG/2 ML VIAL IV PUSH SCH ×2 (09:26→21:00)
[2017-07-14] MEDS: levETIRAcetam 500 MG TAB PO SCH (09:26)
[2017-07-14] MEDS: ASPIRIN 325 MG TAB PO SCH (09:26)
[2017-07-14] MEDS: DOCUSATE SODIUM 50 MG/SENNA 8.6 MG TAB PO SCH ×2 (09:26→21:30)
[2017-07-14] MEDS: levETIRAcetam 500 MG/5 ML UDC NG SCH ×2 (11:37→21:29)
[2017-07-14] MEDS: cefTRIAXone INJ 1,000 MG in SODIUM CHLORIDE 0.9% INJ 100 ML IV SCH (12:16)
--- NOTE | 2017-07-14 15:48 | HHI.PR ---
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 9-3 had swallow eval with speech on nectar thick liquids and pureed diet will check UA AM LABS PT,OT, ST MRIS REVIEWED -4 patient had abnormal EEG will start on Keppra 500MG by mouth twice a day Hep-Lock IV Transfer out of ICU A.m. labs Physical therapy occupational therapy speech therapy Will need SNF or need to go home with family Remains confused States she was at the [employer] 07-13 PATIENT BECAME QUITE CONFUSED YESTERDAY- NEEDED SOFT RESTRAINTS AND ATIVAN IS VERY LETHARGIC TODAY DW RN AND FAMILY NO NEW COMPLAINTS TRANSFER OUT OF ICU AM LABS CONTINUE RESTRAINTS -6 OUT OF RESTRAINTS REMAINS CONFUSED WILL NEED, PT AND OT AND ST NEEDS SNF VS INPT REHAB Objective Vitals Vital Signs Date Time Temp Pulse Resp B/P (MAP) Pulse Ox O2 Delivery O2 Flow Rate FiO2 07/14/17 11:00 98.2 82 20 150/77 (101) 98 07/14/17 09:14 99.0 78 20 158/94 (115) 99 07/14/17 09:00 94 07/14/17 05:49 98.8 103 17 139/72 (94) 94 07/14/17 03:12 87 07/14/17 02:08 94 07/14/17 00:30 98.1 76 17 163/87 (112) 93 07/13/17 20:30 99.1 111 17 152/70 (97) 96 07/13/17 16:00 98.6 79 23 126/68 (87) 96 07/13/17 16:00 79 I/O 07/13/17 07/13/17 07/13/17 07/14/17 07/14/17 07/14/17 07:00 15:00 23:00 07:00 15:00 23:00 Intake Total 360 ml 432 ml 180 ml Balance 360 ml 432 ml 180 ml Intake Oral 360 ml 230 ml 180 ml IV Total 202 ml # Voids 6 4 4 1 # Bowel Movements 0 0 Result Diagram: 07/13/17 1700 07/14/17 0806 Other Results Laboratory Tests Test 07/12/17 06:50 07/13/17 17:00 07/14/17 08:06 White Blood Count 9.2 TH/MM3 10.7 TH/MM3 Red Blood Count 3.45 MIL/MM3 4.25 MIL/MM3 Hemoglobin 10.3 GM/DL 12.4 GM/DL Hematocrit 30.5 % 38.5 % Mean Corpuscular Volume 88.4 FL 90.4 FL Mean Corpuscular Hemoglobin 29.8 PG 29.1 PG Mean Corpuscular Hemoglobin Concent 33.7 % 32.1 % Red Cell Distribution Width 17.5 % 17.7 % Platelet Count 410 TH/MM3 566 TH/MM3 Mean Platelet Volume 8.1 FL 7.6 FL Neutrophils (%) (Auto) 76.1 % 71.7 % Lymphocytes (%) (Auto) 8.1 % 9.9 % Monocytes (%) (Auto) 10.6 % 14.3 % Eosinophils (%) (Auto) 4.1 % 3.3 % Basophils (%) (Auto) 1.1 % 0.8 % Neutrophils # (Auto) 7.0 TH/MM3 7.6 TH/MM3 Lymphocytes # (Auto) 0.7 TH/MM3 1.1 TH/MM3 Monocytes # (Auto) 1.0 TH/MM3 1.5 TH/MM3 Eosinophils # (Auto) 0.4 TH/MM3 0.4 TH/MM3 Basophils # (Auto) 0.1 TH/MM3 0.1 TH/MM3 CBC Comment DIFF FINAL DIFF FINAL Differential Comment Hematology Comments Blood Urea Nitrogen 11 MG/DL 13 MG/DL 17 MG/DL Creatinine 0.53 MG/DL 0.60 MG/DL 0.61 MG/DL Random Glucose 115 MG/DL 78 MG/DL 97 MG/DL Total Protein 5.9 GM/DL 7.3 GM/DL 7.0 GM/DL Albumin 2.5 GM/DL 3.2 GM/DL 3.0 GM/DL Calcium Level 8.2 MG/DL 9.1 MG/DL 8.7 MG/DL Phosphorus Level 2.9 MG/DL 3.7 MG/DL 3.1 MG/DL Magnesium Level 1.8 MG/DL 1.7 MG/DL 1.7 MG/DL Alkaline Phosphatase 100 U/L 122 U/L 113 U/L Aspartate Amino Transf (AST/SGOT) 20 U/L 20 U/L 22 U/L Alanine Aminotransferase (ALT/SGPT) 25 U/L 25 U/L 23 U/L Total Bilirubin 0.7 MG/DL 1.0 MG/DL 0.9 MG/DL Sodium Level 138 MEQ/L 133 MEQ/L 134 MEQ/L Potassium Level 3.7 MEQ/L 3.7 MEQ/L 4.0 MEQ/L Chloride Level 105 MEQ/L 97 MEQ/L 99 MEQ/L Carbon Dioxide Level 23.4 MEQ/L 24.9 MEQ/L 24.1 MEQ/L Anion Gap 10 MEQ/L 11 MEQ/L 11 MEQ/L Estimat Glomerular Filtration Rate 111 ML/MIN 96 ML/MIN 95 ML/MIN Hemoglobin A1c 5.2 % Free Thyroxine 1.13 NG/DL Thyroid Stimulating Hormone 3rd Gen 2.830 uIU/ML Imaging Last Impressions Head Magnetic Resonance Angiography 07/10/17 0000 Signed Impressions: Service Date/Time: Monday, July 10, 2017 20:45 - CONCLUSION: Normal examination for a patient of this age. Olvin Palomo MD Brain MRI 07/10/17 0000 Signed Impressions: Service Date/Time: Monday, July 10, 2017 20:45 - CONCLUSION: 1. Single tiny area of apparent restricted diffusion in the deep right parietal lobe of concern for a small area of lacunar type infarction. 2. Atrophy and chronic small vessel ischemic change. 3. Comment CSF-containing space in the posterior fossa most characteristic of an arachnoid cyst. Jean Oden MD Chest X-Ray 07/06/17 0600 Signed Impressions: Service Date/Time: Thursday, July 06, 2017 04:18 - CONCLUSION: No acute cardiopulmonary abnormality is identified. Rylan Dorantes MD Head CT 07/06/17 0000 Signed Impressions: Service Date/Time: Thursday, July 06, 2017 14:51 - CONCLUSION: Stable CT brain scan intracranially with no acute change. Small air-fluid levels posteriorly in right maxillary sinus and left sphenoid sinus compartment which could represent acute sinusitis. Venu Grewal MD Central Venous Line 07/05/17 1701 Signed Impressions: Service Date/Time: Wednesday, July 05, 2017 17:01 - CONCLUSION: Uncomplicated line placement as above. Stevie Valles MD Neck CTA 07/05/17 0000 Signed Impressions: Service Date/Time: Wednesday, July 05, 2017 14:05 - CONCLUSION: Moderate calcification is present without evidence for hemodynamically significant stenosis. Martinez Adame MD FACR Head CTA 07/05/17 0000 Signed Impressions: Service Date/Time: Wednesday, July 05, 2017 14:05 - CONCLUSION: 1. 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 The patient is to undergo cerebral angiography Stevie Valles MD Cerebral Arteriogram 07/05/17 0000 Signed Impressions: Service Date/Time: Wednesday, July 05, 2017 15:07 - CONCLUSION: 1. No evidence of vessel occlusion. Asymmetric no cerebral arteries as above Stevie Valles MD ADDENDUM: Stenosis measurement is not required for the purposes of this study Stevie Valles MD Objective Remarks GENERAL: This is a well-nourished, well-developed patient, in no apparent distress. AWAKE BUT CONFUSED SKIN: No rashes, warm and dry HEAD: Atraumatic. Normocephalic. EYES: Pupils equal round and reactive. Extraocular motions intact. No scleral icterus. ENT: Nose without bleeding, or drainage, Airway patent. TONGUE MIDLINE ORAL MUCOSA MOIST NECK: Trachea midline. Supple CARDIOVASCULAR: Regular rate and rhythm without murmurs, gallops, or rubs. S1, S2 NO S3 OR S4 NO HEAVE OR THRILL RESPIRATORY: Fair air entry bilaterally. No wheezes, rales, or rhonchi. CTA BL GASTROINTESTINAL: Abdomen soft, non-tender, nondistended. Positive bowel sounds MUSCULOSKELETAL: Extremities without clubbing, cyanosis, or edema. Pedal pulses appreciated NEUROLOGICAL: LETHARGIC AT THIS TIME, Moves all extremity. SOME WORD FINDING ISSUES ON NEW QUESTIONS- GOOD WITH OLD HISTORICAL QUESTIONS INSIGHT AND JUDGEMENT ARE LIMITED MOOD AND BEHAVIOR ARE SOMEWHAT INAPPROPRIATE Moves all 4 extremities motor strength is 5 out of 5 in upper extremity and lower extremity bilaterally Procedures SP TPA Medications and IVs Current Medications Sodium Chloride 1,000 ml @ 70 mls/hr [id number] ONCE IV ; Start 07/05/17 at 11:45 ; Stop 07/05/17 at 14:54; Status DC Propofol 100 ml @ As Directed STK-MED ONCE .ROUTE Last administered on t 17:21; Start 07/05/17 at 12:22; Stop 07/05/17 at 12:23; Status DC Propofol 100 ml @ 0 mls/hr Q0M IV ; Start 07/05/17 at 13:13; Status UNV Labetalol HCl (Trandate Inj) 20 mg Q15M PRN IV PUSH sbp > 160 Last administered on 07/11/17 03:04; Start 07/05/17 at 13:15 Hydralazine HCl (Apresoline Inj) 10 mg Q30M PRN IV PUSH sbp > 160 Last administered on 07/13/17 14:34; Start 07/05/17 at 13:15 Magnesium Oxide (Mag-Ox) 800 mg UNSCH PRN PO For Magnesium 1.2 - 1.6 mg/dL; Start 07/05/17 at 13:15; Stop 07/14/17 at 13:39; Status DC Magnesium Sulfate 4 gm/Sodium Chloride 100 ml @ 50 mls/hr UNSCH PRN IV For Magnesium 0.9 - 1.1 mg/dL; Start 07/05/17 at 13:15; Stop 07/14/17 at 13:39; Status DC Magnesium Sulfate 2 gm/Sodium Chloride 100 ml @ 50 mls/hr UNSCH PRN IV For Magnesium 1.2 - 1.6 mg/dL Last administered on 07/11/17 06:23; Start 07/05/17 at 13:15; Stop 07/14/17 at 13:39; Status DC Potassium Chloride 100 ml @ 50 mls/hr Q2H PRN IV For Potassium 2.8 - 3.2 mEq/L ; Start 07/05/17 at 13:15; Stop 07/14/17 at 13:39; Status DC Potassium Chloride 100 ml @ 50 mls/hr Q2H PRN IV For Potassium 3.3 - 3.5 mEq/ L Last administered on 07/11/17 04:12; Start 07/05/17 at 13:15; Stop 07/14/17 at 13:39; Status DC Potassium Chloride 100 ml @ 50 mls/hr Q2H PRN IV For Potassium 2.8 - 3.2 mEq/ L Last administered on 07/07/17 08:06; Start 07/05/17 at 13:15; Stop 07/14/17 at 13:40; Status DC Potassium Chloride 100 ml @ 25 mls/hr UNSCH PRN IV For Potassium 3.3 - 3.5 mEq /L Last administered on 07/10/17 09:08; Start 07/05/17 at 13:15; Stop 07/14/17 at 13:40; Status DC Potassium Phosphate (K-Phos) 2,000 mg Q4H PRN PO For Phosphorus < 2.5 mg/dL; Start 07/05/17 at 13:15; Stop 07/14/17 at 13:40; Status DC Potassium Phosphate (K-Phos) 2,000 mg UNSCH PRN PO/TUBE SEE LABEL COMMENTS; Start 07/05/17 at 13:15; Stop 07/14/17 at 13:40; Status DC Potassium Phosphate 30 mmol/ Sodium Chloride 260 ml @ 42 mls/hr UNSCH PRN IV SEE LABEL COMMENTS; Start 07/05/17 at 13:15; Stop 07/14/17 at 13:40; Status DC Sodium Phosphate 30 mmol/Sodium Chloride 250 ml @ 42 mls/hr UNSCH PRN IV For Phosphorus < 2.5 mg/dL; Start 07/05/17 at 13:15; Stop 07/14/17 at 13:40; Status DC Chlorhexidine Gluconate (Peridex 0.12% Liq) 15 ml BID@08,20 MT Last administered on 07/12/17 20:00; Start 07/05/17 at 20:00 Dextrose (D50w (Vial) Inj) 25 ml UNSCH PRN IV PUSH HYPOGLYCEMIA-SEE COMMENTS Last administered on 07/07/17 00:56; Start 07/05/17 at 13:15 Insulin Human Regular (NovoLIN R SUPPLEMENTAL SCALE) 1 Q6HR SQ ; Start 07/05/17 at 18:00; Stop 07/12/17 at 09:39; Status DC Albuterol/ Ipratropium (Duoneb Neb) 1 ampule Q6HR NEB INH Last administered on 07/09/17 07:56; Start 07/05/17 at 16:00; Stop 07/09/17 at 15:59; Status DC Albuterol/ Ipratropium (Duoneb Neb) 1 ampule Q2HR NEB PRN INH WHEEZING Last administered on 07/09/17 16:02; Start 07/05/17 at 13:15 Sodium Chloride 1,000 ml @ 60 mls/hr [id number] IV Last administered on 07/12/17 06:53; Start 07/05/17 at 15:00; Stop 07/12/17 at 11:20; Status DC Famotidine (Pepcid Inj) 20 mg Q12HR IV PUSH Last administered on 07/14/17 09:26 ; Start 07/05/17 at 21:00 Ondansetron HCl (Zofran Inj) 4 mg Q6H PRN IV NAUSEA OR VOMITING; Start at 13:15 Miscellaneous Information 1 [id number] Last administered on 07/06/17 04:47; Start 07/05/17 at 13:15 Chlorhexidine Gluconate (Chlorhexidine 2% Cloth) Taper DAILY@04 TOP Last administered on 07/13/17 04:00; Start 07/06/17 at 04:00; Stop 07/02/18 at 03:59 Chlorhexidine Gluconate (Chlorhexidine 2% Cloth) 3 pack UNSCH PRN TOP HYGIENIC CARE; Start 07/05/17 at 13:15 Senna/Docusate Sodium (Anita-Colace) 1 tab BID PO Last administered on 07/14/17 09:26; Start 07/05/17 at 21:00 Midazolam HCl (Versed Inj) 5 mg ONCE ONCE IV PUSH Last administered on 16:19; Start 07/05/17 at 13:30; Stop 07/05/17 at 13:31; Status DC Midazolam HCl (Versed Inj) 5 mg STK-MED ONCE .ROUTE ; Start 07/05/17 at 13:26; Stop 07/05/17 at 13:27; Status DC Midazolam HCl 100 ml @ 2 mls/hr Q50H PRN IV SEDATION; Start 07/05/17 at 13:37; Stop 07/08/17 at 16:57; Status DC Fentanyl Citrate 250 ml @ 5 mls/hr Q50H PRN IV SEDATION Last administered on 09:10; Start 07/05/17 at 13:37; Stop 07/08/17 at 09:42; Status DC Iohexol (Omnipaque 350 Inj) 80 ml STK-MED ONCE IVCONTRAST Last administered on 07/05/17 14:14; Start 07/05/17 at 14:14; Stop 07/05/17 at 14:16; Status DC Propofol 100 ml @ 1.8 mls/hr TITRATE PRN IV SEDATION Last administered on 8/28 /17at 20:14; Start 07/05/17 at 16:00 Alteplase, Recombinant (Activase Bolus) 5.4 mg ONCE ONCE IV Last administered on 07/05/17 16:16; Start 07/05/17 at 15:15; Stop 07/05/17 at 15:18; Status DC Alteplase, Recombinant 48.5 mg/Syringe / Bag 48.5 ml @ 48.5 mls/hr ONCE ONCE IV Last administered on 07/05/17 16:17; Start 07/05/17 at 15:15; Stop at 16:14; Status DC Sodium Chloride (NS Inj) 30 ml ONCE ONCE IVF ; Start 07/05/17 at 15:15; Stop at 15:18; Status DC Miscellaneous Information No Heparin, Warfarin, Aspir... UNSCH PRN XX SEE DOSE INSTRUCTIONS; Start 07/05/17 at 15:15; Stop 07/06/17 at 15:14; Status DC Verapamil HCl (Isoptin Inj) 10 mg STK-MED ONCE .ROUTE Last administered on 07/05 15:23; Start 07/05/17 at 15:23; Stop 07/05/17 at 15:24; Status DC Sodium Chloride 1,000 ml @ 999 mls/hr Q1H IV Last administered on 07/06/17 00 :00; Start 07/05/17 at 23:00; Stop 07/06/17 at 00:59; Status DC Hydralazine HCl (Apresoline) 25 mg Q8HR PO Last administered on 07/14/17 12:16 ; Start 07/06/17 at 08:45 Metoprolol Tartrate (Lopressor) 12.5 mg Q12HR PO Last administered on 07/09/17 10:52; Start 07/06/17 at 09:00; Stop 07/09/17 at 14:42; Status DC Aspirin (Aspirin Supp) 300 mg DAILY RECTAL Last administered on 07/11/17 10:06 ; Start 07/07/17 at 09:00; Stop 07/12/17 at 09:40; Status DC Dexmedetomidine HCl (Precedex Inj) 30 mcg ONCE ONCE IV PUSH ; Start 07/06/17 at 21:30; Stop 07/06/17 at 21:31; Status DC Dexmedetomidine HCl 200 mcg/ Sodium Chloride 52 ml @ 3.1 mls/hr [id number] PRN IV SEDATION Last administered on 07/08/17 06:16; Start 07/06/17 at 21:18 Dextrose (D50w (Syr) Inj) 50 ml STK-MED ONCE .ROUTE ; Start 07/07/17 at 00:55; Stop 07/07/17 at 00:56; Status DC Haloperidol Lactate (Haldol Inj) 5 mg Q6H PRN IV AGITATION Last administered on 07/07/17 11:32; Start 07/07/17 at 03:00; Stop 07/07/17 at 15:01; Status DC Ziprasidone (Geodon Inj) 10 mg Q8H PRN IM AGITATION Last administered on 22:19; Start 07/07/17 at 15:00; Stop 07/08/17 at 09:42; Status DC Paroxetine HCl (Paxil) 20 mg DAILY PO Last administered on 07/14/17 09:25; Start 07/08/17 at 09:45 Metoprolol Tartrate (Lopressor Inj) 5 mg ONCE IV PUSH ; Start 07/08/17 at 14:00 ; Stop 07/08/17 at 23:59; Status DC Metoprolol Tartrate (Lopressor) 25 mg Q12HR PO Last administered on 07/08/17 21:00; Start 07/08/17 at 21:00; Stop 07/09/17 at 14:42; Status DC Midazolam HCl 100 ml @ 2 mls/hr TITRATE PRN IV SEDATION; Start 07/08/17 at 17: 00 Metoprolol Tartrate (Lopressor) 50 mg Q12HR PO Last administered on 07/14/17 09 :26; Start 07/09/17 at 21:00 Atorvastatin Calcium (Lipitor) 40 mg HS PO Last administered on 07/13/17 20:17 ; Start 07/09/17 at 21:00 Lorazepam (Ativan Inj) 0.5 mg UNSCH X1 PRN IV PUSH FINAL ASSEMBLER TO MRI; Start at 16:45; Stop 07/10/17 at 16:44; Status DC Metoprolol Tartrate (Lopressor Inj) 5 mg ONCE ONCE IV PUSH ; Start 07/09/17 at 21:45; Stop 07/09/17 at 21:46; Status DC Lorazepam (Ativan Inj) 0.2 mg Q4H PRN IV PUSH anxiety Last administered on 14:01; Start 07/09/17 at 21:45; Stop 07/12/17 at 16:08; Status DC Lorazepam (Ativan Inj) 0.5 mg UNSCH X1 PRN IV PUSH FINAL ASSEMBLER TO MRI Last administered on 07/10/17 21:46; Start 07/10/17 at 20:00; Stop 07/10/17 at 23:00; Status DC Levetriacetam (Keppra) 500 mg Q12HR PO Last administered on 07/13/17 20:16; Start 07/12/17 at 09:45; Stop 07/14/17 at 10:06; Status DC Aspirin (Aspirin) 325 mg DAILY PO Last administered on 07/14/17 09:26; Start at 09:00 Aspirin (Aspirin) 325 mg ONCE ONCE PO Last administered on 07/12/17 10:21; Start 07/12/17 at 09:45; Stop 07/12/17 at 10:15; Status DC Ceftriaxone Sodium 1000 mg/ Sodium Chloride 100 ml @ 200 mls/hr Q24H IV Last administered on 07/14/17 12:16; Start 07/12/17 at 12:00 Metoprolol Tartrate (Lopressor) 12.5 mg BID PO Last administered on 07/13/17 08 :09; Start 07/12/17 at 21:00 Lorazepam (Ativan Inj) 0.5 mg Q4H PRN IV PUSH ANXIETY AND/OR AGITATION Last administered on 07/12/17 23:32; Start 07/12/17 at 16:15; Stop 07/13/17 at 11:06; Status DC Lorazepam (Ativan Inj) 0.3 mg Q4H PRN IV PUSH ANXIETY AND/OR AGITATION; Start 07/13/17 at 12:15 Levetriacetam (Keppra Liq) 500 mg Q12HR NG Last administered on 07/14/17 11:37 ; Start 07/14/17 at 11:00 A/P Assessment and Plan Acute left MCA CVA status post systemic TPA Failed attempt at mechanical thrombectomy Concern for possible Seizure activity - frequent neuro checks - repeat interval head CT - neuro consult appreciated - portable EEG>> per neuro if came positive need to start Keppra -Start statin, continue blood pressure monitoring and further control Acute hypoxic and hypercarbic respiratory failure improved - avoid hypercarbia - wean fio2 for spo2 > 90% - hob at 30 degrees, nebs, vent bundle - no sedation. RESOLVED History of Hypertension History of Hyperlipidemia - Lipitor - needs ASA after TPA window, defer to neurology to start - 2d echo reviewed -Resume blood pressure control increase Lopressor on 07/09 -Status post labetalol, hydralazine and cardene prn. ON PO ASA 325 MG PO DAILY - [place] for accurate I/Os -- Strict I/Os CHECK UA WITH C/S DC [place] FEN/GI: Acute protein calorie malnutrition- moderate - daily bmp - NS @ 84cc/hr. - prevent hypovolemia. - Swallow eval -> feed. NECTAR THICK AND PUREED DIET GI Prophylaxis - Pepcid DVT Prophylaxis -- SCDs -Status post TPA, chemical when okay with NEUROLOGY POSSIBLE SEIZURE ACTIVITY ABNORMAL EKG START KEPPRA 500MG PO BID OK TO TRANSFER OFF FLOOR SUSPECTED UTI--POSITIVE Klebsiella oxytociA START ROCEPHIN UNTIL CULTURES BACK RESTART HOME METOPROLOL HEPLOCK IV OK FOR FLOOR PT, OT, ST Restraints when necessary PT, OT, ST NEEDS REHAB INPT VS SNF Martinez Diaz DO Jul 14, 2017 15:47
[2017-07-14 17:55] LABS: AUTOMATED NEUTROPHIL # 6.1 TH/MM3 (1.8-7.7); BASOPHIL % 0.6 % (0.0-2.0); EOSINOPHIL # 0.2 TH/MM3 (0-0.4); EOSINOPHIL % 2.3 % (0.0-4.0); HEMATOCRIT 37.4 % (35.0-46.0); HEMO FLAGS DIFF FINAL; LYMPH % 10.9 % (9.0-44.0); LYMPHOCYTE # 0.9 TH/MM3 (1.0-4.8); MEAN CELL VOLUME 90.3 FL (80.0-100.0); MEAN CORPUSCULAR HEMOGLOBIN 29.4 PG (27.0-34.0); MEAN CORPUSCULAR HGB CONC 32.5 % (32.0-36.0); MONO % 13.9 % (0.0-8.0); NEUT % 72.3 % (16.0-70.0); PLATELET COUNT 530 TH/MM3 (150-450); RED BLOOD COUNT 4.14 MIL/MM3 (4.00-5.30); RED CELL DISTRIBUTION WIDTH 17.3 % (11.6-17.2); WHITE BLOOD COUNT 8.5 TH/MM3 (4.0-11.0)
[2017-07-14] MEDS: ATORVASTATIN 40 MG TAB PO SCH (21:30)
[2017-07-15] VITALS: BP 118/54; PULSE 66; RESP 18; TEMP 97.8; O2SAT 97
[2017-07-15 04:00] VITALS: BP 131/63; PULSE 65; RESP 18; TEMP 97.9; O2SAT 98
[2017-07-15] MEDS: CHLORHEXIDINE GLUCONATE 2 % 1 PACK (2 CLOTHS) TOP SCH (04:00)
[2017-07-15] MEDS: hydrALAZINE HCL 25 MG TAB PO SCH ×2 (05:53→14:28)
[2017-07-15 08:00] VITALS: PULSE 77
[2017-07-15] MEDS: CHLORHEXIDINE 0.12% (ORAL KIT) 15 ML CUP MT SCH (08:00)
[2017-07-15 08:56] VITALS: BP 146/80; PULSE 75; RESP 18; TEMP 98; O2SAT 99
[2017-07-15] MEDS: FAMOTIDINE 20 MG/2 ML VIAL IV PUSH SCH (09:00)
[2017-07-15] MEDS: levETIRAcetam 500 MG/5 ML UDC NG SCH (10:11)
[2017-07-15] MEDS: DOCUSATE SODIUM 50 MG/SENNA 8.6 MG TAB PO SCH (10:11)
[2017-07-15] MEDS: ASPIRIN 325 MG TAB PO SCH (10:11)
[2017-07-15] MEDS: PARoxetine HCL 20 MG TAB PO SCH (10:11)
[2017-07-15] MEDS: METOPROLOL TARTRATE 25 MG TAB PO SCH (10:11)
[2017-07-15] MEDS: cefTRIAXone INJ 1,000 MG in SODIUM CHLORIDE 0.9% INJ 100 ML IV SCH (12:00)
[2017-07-15 12:27] VITALS: BP 120/60; PULSE 85; RESP 18; TEMP 98.2; O2SAT 98
--- NOTE | 2017-07-15 15:10 | HHI.PR ---
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 9-3 had swallow eval with speech on nectar thick liquids and pureed diet will check UA AM LABS PT,OT, ST MRIS REVIEWED 07-12 patient had abnormal EEG will start on Keppra 500MG by mouth twice a day Hep-Lock IV Transfer out of ICU A.m. labs Physical therapy occupational therapy speech therapy Will need SNF or need to go home with family Remains confused States she was at the [employer] 07-13 PATIENT BECAME QUITE CONFUSED YESTERDAY- NEEDED SOFT RESTRAINTS AND ATIVAN IS VERY LETHARGIC TODAY DW RN AND FAMILY NO NEW COMPLAINTS TRANSFER OUT OF ICU AM LABS CONTINUE RESTRAINTS 07-14 OUT OF RESTRAINTS REMAINS CONFUSED WILL NEED, PT AND OT AND ST NEEDS SNF VS INPT REHAB 07-15 ACCEPTED AT SNF DC TO SNF TODAY Objective Vitals Vital Signs Date Time Temp Pulse Resp B/P (MAP) Pulse Ox O2 Delivery O2 Flow Rate FiO2 07/15/17 12:27 98.2 85 18 120/60 (80) 98 07/15/17 08:56 98.0 75 18 146/80 (102) 99 07/15/17 08:00 77 07/15/17 04:00 97.9 65 18 131/63 (85) 98 07/15/17 00:00 97.8 66 18 118/54 (75) 97 07/14/17 23:30 66 07/14/17 20:00 97.3 84 18 132/60 (84) 98 07/14/17 16:05 98.0 85 18 146/67 (93) 97 I/O 07/14/17 07/14/17 07/14/17 07/15/17 07/15/17 07/15/17 07:00 15:00 23:00 07:00 15:00 23:00 Intake Total 180 ml 100 ml 100 ml Balance 180 ml 100 ml 100 ml Intake Oral 180 ml IV Total 100 ml 100 ml # Voids 4 1 2 2 Result Diagram: 07/14/17 1700 07/14/17 0806 Other Results Laboratory Tests Test 07/13/17 17:00 07/14/17 08:06 07/14/17 17:00 White Blood Count 10.7 TH/MM3 8.5 TH/MM3 Red Blood Count 4.25 MIL/MM3 4.14 MIL/MM3 Hemoglobin 12.4 GM/DL 12.2 GM/DL Hematocrit 38.5 % 37.4 % Mean Corpuscular Volume 90.4 FL 90.3 FL Mean Corpuscular Hemoglobin 29.1 PG 29.4 PG Mean Corpuscular Hemoglobin Concent 32.1 % 32.5 % Red Cell Distribution Width 17.7 % 17.3 % Platelet Count 566 TH/MM3 530 TH/MM3 Mean Platelet Volume 7.6 FL 7.8 FL Neutrophils (%) (Auto) 71.7 % 72.3 % Lymphocytes (%) (Auto) 9.9 % 10.9 % Monocytes (%) (Auto) 14.3 % 13.9 % Eosinophils (%) (Auto) 3.3 % 2.3 % Basophils (%) (Auto) 0.8 % 0.6 % Neutrophils # (Auto) 7.6 TH/MM3 6.1 TH/MM3 Lymphocytes # (Auto) 1.1 TH/MM3 0.9 TH/MM3 Monocytes # (Auto) 1.5 TH/MM3 1.2 TH/MM3 Eosinophils # (Auto) 0.4 TH/MM3 0.2 TH/MM3 Basophils # (Auto) 0.1 TH/MM3 0.0 TH/MM3 CBC Comment DIFF FINAL DIFF FINAL Differential Comment Blood Urea Nitrogen 13 MG/DL 17 MG/DL Creatinine 0.60 MG/DL 0.61 MG/DL Random Glucose 78 MG/DL 97 MG/DL Total Protein 7.3 GM/DL 7.0 GM/DL Albumin 3.2 GM/DL 3.0 GM/DL Calcium Level 9.1 MG/DL 8.7 MG/DL Phosphorus Level 3.7 MG/DL 3.1 MG/DL Magnesium Level 1.7 MG/DL 1.7 MG/DL Alkaline Phosphatase 122 U/L 113 U/L Aspartate Amino Transf (AST/SGOT) 20 U/L 22 U/L Alanine Aminotransferase (ALT/SGPT) 25 U/L 23 U/L Total Bilirubin 1.0 MG/DL 0.9 MG/DL Sodium Level 133 MEQ/L 134 MEQ/L Potassium Level 3.7 MEQ/L 4.0 MEQ/L Chloride Level 97 MEQ/L 99 MEQ/L Carbon Dioxide Level 24.9 MEQ/L 24.1 MEQ/L Anion Gap 11 MEQ/L 11 MEQ/L Estimat Glomerular Filtration Rate 96 ML/MIN 95 ML/MIN Imaging Last Impressions Head Magnetic Resonance Angiography 07/10/17 0000 Signed Impressions: Service Date/Time: Monday, July 10, 2017 20:45 - CONCLUSION: Normal examination for a patient of this age. Olvin Palomo MD Brain MRI 07/10/17 0000 Signed Impressions: Service Date/Time: Monday, July 10, 2017 20:45 - CONCLUSION: 1. Single tiny area of apparent restricted diffusion in the deep right parietal lobe of concern for a small area of lacunar type infarction. 2. Atrophy and chronic small vessel ischemic change. 3. Comment CSF-containing space in the posterior fossa most characteristic of an arachnoid cyst. Jean Oden MD Chest X-Ray 07/06/17 0600 Signed Impressions: Service Date/Time: Thursday, July 06, 2017 04:18 - CONCLUSION: No acute cardiopulmonary abnormality is identified. Rylan Dorantes MD Head CT 07/06/17 0000 Signed Impressions: Service Date/Time: Thursday, July 06, 2017 14:51 - CONCLUSION: Stable CT brain scan intracranially with no acute change. Small air-fluid levels posteriorly in right maxillary sinus and left sphenoid sinus compartment which could represent acute sinusitis. Venu Grewal MD Central Venous Line 07/05/17 1701 Signed Impressions: Service Date/Time: Wednesday, July 05, 2017 17:01 - CONCLUSION: Uncomplicated line placement as above. Stevie Valles MD Neck CTA 07/05/17 0000 Signed Impressions: Service Date/Time: Wednesday, July 05, 2017 14:05 - CONCLUSION: Moderate calcification is present without evidence for hemodynamically significant stenosis. Martinez Adame MD FACR Head CTA 07/05/17 0000 Signed Impressions: Service Date/Time: Wednesday, July 05, 2017 14:05 - CONCLUSION: 1. 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 The patient is to undergo cerebral angiography Stevie Valles MD Cerebral Arteriogram 07/05/17 0000 Signed Impressions: Service Date/Time: Wednesday, July 05, 2017 15:07 - CONCLUSION: 1. No evidence of vessel occlusion. Asymmetric no cerebral arteries as above Stevie Valles MD ADDENDUM: Stenosis measurement is not required for the purposes of this study Stevie Valles MD Objective Remarks GENERAL: This is a well-nourished, well-developed patient, in no apparent distress. AWAKE BUT CONFUSED SKIN: No rashes, warm and dry HEAD: Atraumatic. Normocephalic. EYES: Pupils equal round and reactive. Extraocular motions intact. No scleral icterus. ENT: Nose without bleeding, or drainage, Airway patent. TONGUE MIDLINE ORAL MUCOSA MOIST NECK: Trachea midline. Supple CARDIOVASCULAR: Regular rate and rhythm without murmurs, gallops, or rubs. S1, S2 NO S3 OR S4 NO HEAVE OR THRILL RESPIRATORY: Fair air entry bilaterally. No wheezes, rales, or rhonchi. CTA BL GASTROINTESTINAL: Abdomen soft, non-tender, nondistended. Positive bowel sounds MUSCULOSKELETAL: Extremities without clubbing, cyanosis, or edema. Pedal pulses appreciated NEUROLOGICAL: LETHARGIC AT THIS TIME, Moves all extremity. SOME WORD FINDING ISSUES ON NEW QUESTIONS- GOOD WITH OLD HISTORICAL QUESTIONS INSIGHT AND JUDGEMENT ARE LIMITED MOOD AND BEHAVIOR ARE SOMEWHAT INAPPROPRIATE Moves all 4 extremities motor strength is 5 out of 5 in upper extremity and lower extremity bilaterally Procedures SP TPA Medications and IVs Current Medications Sodium Chloride 1,000 ml @ 70 mls/hr [id number] ONCE IV ; Start 07/05/17 at 11:45 ; Stop 07/05/17 at 14:54; Status DC Propofol 100 ml @ As Directed STK-MED ONCE .ROUTE Last administered on 17:21; Start 07/05/17 at 12:22; Stop 07/05/17 at 12:23; Status DC Propofol 100 ml @ 0 mls/hr Q0M IV ; Start 07/05/17 at 13:13; Status UNV Labetalol HCl (Trandate Inj) 20 mg Q15M PRN IV PUSH sbp > 160 Last administered on 07/11/17 03:04; Start 07/05/17 at 13:15 Hydralazine HCl (Apresoline Inj) 10 mg Q30M PRN IV PUSH sbp > 160 Last administered on 07/13/17 14:34; Start 07/05/17 at 13:15 Magnesium Oxide (Mag-Ox) 800 mg UNSCH PRN PO For Magnesium 1.2 - 1.6 mg/dL; Start 07/05/17 at 13:15; Stop 07/14/17 at 13:39; Status DC Magnesium Sulfate 4 gm/Sodium Chloride 100 ml @ 50 mls/hr UNSCH PRN IV For Magnesium 0.9 - 1.1 mg/dL; Start 07/05/17 at 13:15; Stop 07/14/17 at 13:39; Status DC Magnesium Sulfate 2 gm/Sodium Chloride 100 ml @ 50 mls/hr UNSCH PRN IV For Magnesium 1.2 - 1.6 mg/dL Last administered on 07/11/17 06:23; Start 07/05/17 at 13:15; Stop 07/14/17 at 13:39; Status DC Potassium Chloride 100 ml @ 50 mls/hr Q2H PRN IV For Potassium 2.8 - 3.2 mEq/L ; Start 07/05/17 at 13:15; Stop 07/14/17 at 13:39; Status DC Potassium Chloride 100 ml @ 50 mls/hr Q2H PRN IV For Potassium 3.3 - 3.5 mEq/ L Last administered on 07/11/17 04:12; Start 07/05/17 at 13:15; Stop 07/14/17 at 13:39; Status DC Potassium Chloride 100 ml @ 50 mls/hr Q2H PRN IV For Potassium 2.8 - 3.2 mEq/ L Last administered on 07/07/17 08:06; Start 07/05/17 at 13:15; Stop 07/14/17 at 13:40; Status DC Potassium Chloride 100 ml @ 25 mls/hr UNSCH PRN IV For Potassium 3.3 - 3.5 mEq /L Last administered on 07/10/17 09:08; Start 07/05/17 at 13:15; Stop 07/14/17 at 13:40; Status DC Potassium Phosphate (K-Phos) 2,000 mg Q4H PRN PO For Phosphorus < 2.5 mg/dL; Start 07/05/17 at 13:15; Stop 07/14/17 at 13:40; Status DC Potassium Phosphate (K-Phos) 2,000 mg UNSCH PRN PO/TUBE SEE LABEL COMMENTS; Start 07/05/17 at 13:15; Stop 07/14/17 at 13:40; Status DC Potassium Phosphate 30 mmol/ Sodium Chloride 260 ml @ 42 mls/hr UNSCH PRN IV SEE LABEL COMMENTS; Start 07/05/17 at 13:15; Stop 07/14/17 at 13:40; Status DC Sodium Phosphate 30 mmol/Sodium Chloride 250 ml @ 42 mls/hr UNSCH PRN IV For Phosphorus < 2.5 mg/dL; Start 07/05/17 at 13:15; Stop 07/14/17 at 13:40; Status DC Chlorhexidine Gluconate (Peridex 0.12% Liq) 15 ml BID@08,20 MT Last administered on 07/12/17 20:00; Start 07/05/17 at 20:00 Dextrose (D50w (Vial) Inj) 25 ml UNSCH PRN IV PUSH HYPOGLYCEMIA-SEE COMMENTS Last administered on 07/07/17 00:56; Start 07/05/17 at 13:15 Insulin Human Regular (NovoLIN R SUPPLEMENTAL SCALE) 1 Q6HR SQ ; Start 07/05/17 at 18:00; Stop 07/12/17 at 09:39; Status DC Albuterol/ Ipratropium (Duoneb Neb) 1 ampule Q6HR NEB INH Last administered on 07/09/17 07:56; Start 07/05/17 at 16:00; Stop 07/09/17 at 15:59; Status DC Albuterol/ Ipratropium (Duoneb Neb) 1 ampule Q2HR NEB PRN INH WHEEZING Last administered on 07/09/17 16:02; Start 07/05/17 at 13:15 Sodium Chloride 1,000 ml @ 60 mls/hr [id number] IV Last administered on 07/12/17 06:53; Start 07/05/17 at 15:00; Stop 07/12/17 at 11:20; Status DC Famotidine (Pepcid Inj) 20 mg Q12HR IV PUSH Last administered on 07/14/17 09:26 ; Start 07/05/17 at 21:00 Ondansetron HCl (Zofran Inj) 4 mg Q6H PRN IV NAUSEA OR VOMITING; Start at 13:15 Miscellaneous Information 1 [id number] XX Last administered on 07/06/17 04:47; Start 07/05/17 at 13:15 Chlorhexidine Gluconate (Chlorhexidine 2% Cloth) Taper DAILY@04 TOP Last administered on 07/13/17 04:00; Start 07/06/17 at 04:00; Stop 07/02/18 at 03:59 Chlorhexidine Gluconate (Chlorhexidine 2% Cloth) 3 pack UNSCH PRN TOP HYGIENIC CARE; Start 07/05/17 at 13:15 Senna/Docusate Sodium (Anita-Colace) 1 tab BID PO Last administered on 07/15/17 10:11; Start 07/05/17 at 21:00 Midazolam HCl (Versed Inj) 5 mg ONCE ONCE IV PUSH Last administered on 16:19; Start 07/05/17 at 13:30; Stop 07/05/17 at 13:31; Status DC Midazolam HCl (Versed Inj) 5 mg STK-MED ONCE .ROUTE ; Start 07/05/17 at 13:26; Stop 07/05/17 at 13:27; Status DC Midazolam HCl 100 ml @ 2 mls/hr Q50H PRN IV SEDATION; Start 07/05/17 at 13:37; Stop 07/08/17 at 16:57; Status DC Fentanyl Citrate 250 ml @ 5 mls/hr Q50H PRN IV SEDATION Last administered on 09:10; Start 07/05/17 at 13:37; Stop 07/08/17 at 09:42; Status DC Iohexol (Omnipaque 350 Inj) 80 ml STK-MED ONCE IVCONTRAST Last administered on 07/05/17 14:14; Start 07/05/17 at 14:14; Stop 07/05/17 at 14:16; Status DC Propofol 100 ml @ 1.8 mls/hr TITRATE PRN IV SEDATION Last administered on 07/05 20:14; Start 07/05/17 at 16:00 Alteplase, Recombinant (Activase Bolus) 5.4 mg ONCE ONCE IV Last administered on 07/05/17 16:16; Start 07/05/17 at 15:15; Stop 07/05/17 at 15:18; Status DC Alteplase, Recombinant 48.5 mg/Syringe / Bag 48.5 ml @ 48.5 mls/hr ONCE ONCE IV Last administered on 07/05/17 16:17; Start 07/05/17 at 15:15; Stop at 16:14; Status DC Sodium Chloride (NS Inj) 30 ml ONCE ONCE IVF ; Start 07/05/17 at 15:15; Stop at 15:18; Status DC Miscellaneous Information No Heparin, Warfarin, Aspir... UNSCH PRN XX SEE DOSE INSTRUCTIONS; Start 07/05/17 at 15:15; Stop 07/06/17 at 15:14; Status DC Verapamil HCl (Isoptin Inj) 10 mg STK-MED ONCE .ROUTE Last administered on 07/05 15:23; Start 07/05/17 at 15:23; Stop 07/05/17 at 15:24; Status DC Sodium Chloride 1,000 ml @ 999 mls/hr Q1H IV Last administered on 07/06/17 00 :00; Start 07/05/17 at 23:00; Stop 07/06/17 at 00:59; Status DC Hydralazine HCl (Apresoline) 25 mg Q8HR PO Last administered on 07/15/17 14:28 ; Start 07/06/17 at 08:45 Metoprolol Tartrate (Lopressor) 12.5 mg Q12HR PO Last administered on 07/09/17 10:52; Start 07/06/17 at 09:00; Stop 07/09/17 at 14:42; Status DC Aspirin (Aspirin Supp) 300 mg DAILY RECTAL Last administered on 07/11/17 10:06 ; Start 07/07/17 at 09:00; Stop 07/12/17 at 09:40; Status DC Dexmedetomidine HCl (Precedex Inj) 30 mcg ONCE ONCE IV PUSH ; Start 07/06/17 at 21:30; Stop 07/06/17 at 21:31; Status DC Dexmedetomidine HCl 200 mcg/ Sodium Chloride 52 ml @ 3.1 mls/hr [id number] PRN IV SEDATION Last administered on 07/08/17 06:16; Start 07/06/17 at 21:18 Dextrose (D50w (Syr) Inj) 50 ml STK-MED ONCE .ROUTE ; Start 07/07/17 at 00:55; Stop 07/07/17 at 00:56; Status DC Haloperidol Lactate (Haldol Inj) 5 mg Q6H PRN IV AGITATION Last administered on 07/07/17 11:32; Start 07/07/17 at 03:00; Stop 07/07/17 at 15:01; Status DC Ziprasidone (Geodon Inj) 10 mg Q8H PRN IM AGITATION Last administered on 22:19; Start 07/07/17 at 15:00; Stop 07/08/17 at 09:42; Status DC Paroxetine HCl (Paxil) 20 mg DAILY PO Last administered on 07/15/17 10:11; Start 07/08/17 at 09:45 Metoprolol Tartrate (Lopressor Inj) 5 mg ONCE IV PUSH ; Start 07/08/17 at 14:00 ; Stop 07/08/17 at 23:59; Status DC Metoprolol Tartrate (Lopressor) 25 mg Q12HR PO Last administered on 07/08/17 21:00; Start 07/08/17 at 21:00; Stop 07/09/17 at 14:42; Status DC Midazolam HCl 100 ml @ 2 mls/hr TITRATE PRN IV SEDATION; Start 07/08/17 at 17: 00 Metoprolol Tartrate (Lopressor) 50 mg Q12HR PO Last administered on 07/15/17 10 :11; Start 07/09/17 at 21:00 Atorvastatin Calcium (Lipitor) 40 mg HS PO Last administered on 07/14/17 21:30 ; Start 07/09/17 at 21:00 Lorazepam (Ativan Inj) 0.5 mg UNSCH X1 PRN IV PUSH [employer]ULT [employer]IAN TO MRI; Start at 16:45; Stop 07/10/17 at 16:44; Status DC Metoprolol Tartrate (Lopressor Inj) 5 mg ONCE ONCE IV PUSH ; Start 07/09/17 at 21:45; Stop 07/09/17 at 21:46; Status DC Lorazepam (Ativan Inj) 0.2 mg Q4H PRN IV PUSH anxiety Last administered on 14:01; Start 07/09/17 at 21:45; Stop 07/12/17 at 16:08; Status DC Lorazepam (Ativan Inj) 0.5 mg UNSCH X1 PRN IV PUSH YOUNG ADULT [employer]RARIAN TO MRI Last administered on 07/10/17 21:46; Start 07/10/17 at 20:00; Stop 07/10/17 at 23:00; Status DC Levetriacetam (Keppra) 500 mg Q12HR PO Last administered on 07/13/17 20:16; Start 07/12/17 at 09:45; Stop 07/14/17 at 10:06; Status DC Aspirin (Aspirin) 325 mg DAILY PO Last administered on 07/15/17 10:11; Start at 09:00 Aspirin (Aspirin) 325 mg ONCE ONCE PO Last administered on 07/12/17 10:21; Start 07/12/17 at 09:45; Stop 07/12/17 at 10:15; Status DC Ceftriaxone Sodium 1000 mg/ Sodium Chloride 100 ml @ 200 mls/hr Q24H IV Last administered on 07/14/17 12:16; Start 07/12/17 at 12:00 Metoprolol Tartrate (Lopressor) 12.5 mg BID PO Last administered on 07/13/17 08 :09; Start 07/12/17 at 21:00; Stop 07/14/17 at 21:05; Status DC Lorazepam (Ativan Inj) 0.5 mg Q4H PRN IV PUSH ANXIETY AND/OR AGITATION Last administered on 07/12/17 23:32; Start 07/12/17 at 16:15; Stop 07/13/17 at 11:06; Status DC Lorazepam (Ativan Inj) 0.3 mg Q4H PRN IV PUSH ANXIETY AND/OR AGITATION; Start 07/13/17 at 12:15 Levetriacetam (Keppra Liq) 500 mg Q12HR NG Last administered on 07/15/17 10:11 ; Start 07/14/17 at 11:00 Urinary Catheter: No Vascular Central Line Catheter: No A/P Assessment and Plan Acute left MCA CVA status post systemic TPA Failed attempt at mechanical thrombectomy Concern for possible Seizure activity - frequent neuro checks - repeat interval head CT - neuro consult appreciated - portable EEG>> per neuro if came positive need to start Keppra -Start statin, continue blood pressure monitoring and further control Acute hypoxic and hypercarbic respiratory failure improved - avoid hypercarbia - wean fio2 for spo2 > 90% - hob at 30 degrees, nebs, vent bundle - no sedation. RESOLVED History of Hypertension History of Hyperlipidemia - Lipitor - needs ASA after TPA window, defer to neurology to start - 2d echo reviewed -Resume blood pressure control increase Lopressor on 07/09 -Status post labetalol, hydralazine and cardene prn. ON PO ASA 325 MG PO DAILY - [place] for accurate I/Os -- Strict I/Os CHECK UA WITH C/S [facility] [place] FEN/GI: Acute protein calorie malnutrition- moderate - daily bmp - NS @ 84cc/hr. - prevent hypovolemia. - Swallow eval -> feed. NECTAR THICK AND PUREED DIET GI Prophylaxis - Pepcid DVT Prophylaxis -- SCDs -Status post TPA, chemical when okay with NEUROLOGY POSSIBLE SEIZURE ACTIVITY ABNORMAL EKG START KEPPRA 500MG PO BID OK TO TRANSFER OFF FLOOR SUSPECTED UTI--POSITIVE Klebsiella oxytociA START ROCEPHIN UNTIL CULTURES BACK RESTART HOME METOPROLOL HEPLOCK IV OK FOR FLOOR PT, OT, ST Restraints when necessary PT, OT, ST NEEDS REHAB INPT VS SNF ACCEPTED AT [facility] DC TODAY SEE [id number] Martinez Diaz DO Jul 15, 2017 15:10
[2017-07-15] MEDS ORDERED: HYDR-3799 PO (15:17)
[2017-07-15] MEDS ORDERED: IPRASOL INH (15:17)
[2017-07-15] MEDS ORDERED: ATOR40TA16 PO (15:17)
[2017-07-15] MEDS ORDERED: ASPI325T PO (15:18)
[2017-07-15] MEDS ORDERED: LEVE500S NG (15:18)
[2017-07-15] MEDS ORDERED: PARO20TA2 PO (15:18)
[2017-07-15] MEDS ORDERED: BACT800T5 PO (15:18)
[2017-07-15] MEDS ORDERED: SENN1TAB PO (15:18)
[2017-07-15] MEDS ORDERED: METO25TA3 PO (15:18)
--- NOTE | 2017-07-15 15:21 | HHI.DS ---
Discharge Summary Admission Date Jul 05, 2017 at 13:16 Discharge Date: Jul 15, 2017 Admitting Diagnosis CVA, dysarthria, altered mental status (1) Hypertension ICD Code: I10 - Essential (primary) hypertension Diagnosis: Secondary (2) Hypercholesterolemia ICD Code: E78.00 - Pure hypercholesterolemia, unspecified (3) Anxiety ICD Code: F41.9 - Anxiety disorder, unspecified Diagnosis: Secondary (4) UTI (urinary tract infection) ICD Code: N39.0 - Urinary tract infection, site not specified Diagnosis: Secondary (5) CVA (cerebral vascular accident) ICD Code: I63.9 - Cerebral infarction, unspecified Diagnosis: Principal Status: Acute (6) Altered mental status ICD Code: R41.82 - Altered mental status, unspecified Diagnosis: Secondary Status: Acute (7) Dysarthria ICD Code: R47.1 - Dysarthria and anarthria Diagnosis: Secondary Status: Acute Procedures SP TPA Brief History - From Admission This is a 77-year-old female with a history of hypertension and hypercholesterolemia who presented to the emergency department as a stroke alert. When I evaluated the patient she was artery intubated and sedated and no additional information is obtainable from her. Per chart review and my discussions with the emergency department physician, apparently she was noted at 10 AM to suddenly to become confused and have slurred speech. Initially she was not able move her left upper extremity, but in the emergency department she was noted to be moving her left upper extremity. She continued to have dysarthria. Noncontrasted head CT demonstrated no acute head bleed and she was given IV TPA after discussion of risks and benefits in the emergency department. She then underwent CT angiography which demonstrated a flow void in the left MCA. She was then taken emergently to interventional radiology, but no evidence of thrombus was seen in order to perform mechanical thrombectomy. She arrives today surgical ICU in critical condition, intubated, sedated. CBC/BMP: 07/14/17 1700 07/14/17 0806 Significant Findings Laboratory Tests Test 07/13/17 17:00 07/14/17 08:06 07/14/17 17:00 Red Cell Distribution Width 17.7 % (11.6-17.2) 17.3 % (11.6-17.2) Platelet Count 566 TH/MM3 (150-450) 530 TH/MM3 (150-450) Neutrophils (%) (Auto) 71.7 % (16.0-70.0) 72.3 % (16.0-70.0) Monocytes (%) (Auto) 14.3 % (0.0-8.0) 13.9 % (0.0-8.0) Monocytes # (Auto) 1.5 TH/MM3 (0-0.9) 1.2 TH/MM3 (0-0.9) Albumin 3.2 GM/DL (3.4-5.0) 3.0 GM/DL (3.4-5.0) Alkaline Phosphatase 122 U/L (45-117) Sodium Level 133 MEQ/L (136-145) 134 MEQ/L (136-145) Chloride Level 97 MEQ/L (98-107) Lymphocytes # (Auto) 0.9 TH/MM3 (1.0-4.8) Imaging Last Impressions Head Magnetic Resonance Angiography 07/10/17 0000 Signed Impressions: Service Date/Time: Monday, July 10, 2017 20:45 - CONCLUSION: Normal examination for a patient of this age. Olvin Palomo MD Brain MRI 07/10/17 0000 Signed Impressions: Service Date/Time: Monday, July 10, 2017 20:45 - CONCLUSION: 1. Single tiny area of apparent restricted diffusion in the deep right parietal lobe of concern for a small area of lacunar type infarction. 2. Atrophy and chronic small vessel ischemic change. 3. Comment CSF-containing space in the posterior fossa most characteristic of an arachnoid cyst. Jean Oden MD Chest X-Ray 07/06/17 0600 Signed Impressions: Service Date/Time: Thursday, July 06, 2017 04:18 - CONCLUSION: No acute cardiopulmonary abnormality is identified. Rylan Dorantes MD Head CT 07/06/17 0000 Signed Impressions: Service Date/Time: Thursday, July 06, 2017 14:51 - CONCLUSION: Stable CT brain scan intracranially with no acute change. Small air-fluid levels posteriorly in right maxillary sinus and left sphenoid sinus compartment which could represent acute sinusitis. Venu Stone, MD Central Venous Line 07/05/17 1701 Signed Impressions: Service Date/Time: Wednesday, July 05, 2017 17:01 - CONCLUSION: Uncomplicated line placement as above. Stevie Valles MD Neck CTA 07/05/17 0000 Signed Impressions: Service Date/Time: Wednesday, July 05, 2017 14:05 - CONCLUSION: Moderate calcification is present without evidence for hemodynamically significant stenosis. Martinez Adame MD FACR Head CTA 07/05/17 0000 Signed Impressions: Service Date/Time: Wednesday, July 05, 2017 14:05 - CONCLUSION: 1. 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 The patient is to undergo cerebral angiography Stevie Valles MD Cerebral Arteriogram 07/05/17 0000 Signed Impressions: Service Date/Time: Wednesday, July 05, 2017 15:07 - CONCLUSION: 1. No evidence of vessel occlusion. Asymmetric no cerebral arteries as above Stevie Valles MD ADDENDUM: Stenosis measurement is not required for the purposes of this study Stevie Valles MD PE at Discharge GENERAL: This is a well-nourished, well-developed patient, in no apparent distress. AWAKE BUT CONFUSED SKIN: No rashes, warm and dry HEAD: Atraumatic. Normocephalic. EYES: Pupils equal round and reactive. Extraocular motions intact. No scleral icterus. ENT: Nose without bleeding, or drainage, Airway patent. TONGUE MIDLINE ORAL MUCOSA MOIST NECK: Trachea midline. Supple CARDIOVASCULAR: Regular rate and rhythm without murmurs, gallops, or rubs. S1, S2 NO S3 OR S4 NO HEAVE OR THRILL RESPIRATORY: Fair air entry bilaterally. No wheezes, rales, or rhonchi. CTA BL GASTROINTESTINAL: Abdomen soft, non-tender, nondistended. Positive bowel sounds MUSCULOSKELETAL: Extremities without clubbing, cyanosis, or edema. Pedal pulses appreciated NEUROLOGICAL: LETHARGIC AT THIS TIME, Moves all extremity. SOME WORD FINDING ISSUES ON NEW QUESTIONS- GOOD WITH OLD HISTORICAL QUESTIONS INSIGHT AND JUDGEMENT ARE LIMITED MOOD AND BEHAVIOR ARE SOMEWHAT INAPPROPRIATE Moves all 4 extremities motor strength is 5 out of 5 in upper extremity and lower extremity bilaterally Hospital Course This is a follow up on acute left MCA stroke status post TPA with acute hypoxic hypercapnic respiratory failure. 9-3 had swallow eval with speech on nectar thick liquids and pureed diet will check UA AM LABS PT,OT, ST MRIS REVIEWED 07-12 patient had abnormal EEG will start on Keppra 500MG by mouth twice a day Hep-Lock IV Transfer out of ICU A.m. labs Physical therapy occupational therapy speech therapy Will need SNF or need to go home with family Remains confused States she was at the [employer] club 07-13 PATIENT BECAME QUITE CONFUSED YESTERDAY- NEEDED SOFT RESTRAINTS AND ATIVAN IS VERY LETHARGIC TODAY DW RN AND FAMILY NO NEW COMPLAINTS TRANSFER OUT OF ICU AM LABS CONTINUE RESTRAINTS 07-14 OUT OF RESTRAINTS REMAINS CONFUSED WILL NEED, PT AND OT AND ST NEEDS SNF VS INPT REHAB 07-15 ACCEPTED AT SNF- DC TO SNF Pt Condition on Discharge: Fair Discharge Disposition: Discharge to SNF Discharge Time: > 30 minutes Discharge Instructions DIET: Follow Instructions for: Heart Healthy Diet Speech Therapy-Diet Recommends: Pureed, [place] Thickened Liquids Activities you can perform: Weight Bearing as Danny Other Activity Instructions: PT AND OT AND ST Follow up Referrals: Neurology - 2 Weeks with Maria Guadalupe Henao MD PCP Follow-up - 2 Weeks New Medications: Sulfamethoxazole-Trimethoprim (Bactrim DS) 800-160 Mg Tab 1 TAB PO BID for Infection, #14 TAB 0 Refills Aspirin (Aspirin) 325 Mg Tab 325 MG PO DAILY for Blood Clot Prevention, #30 TAB Atorvastatin (Atorvastatin) 40 Mg Tab 40 MG PO HS for Cholesterol Management, #30 TAB Hydralazine HCl (Hydralazine HCl) 25 Mg Tablet 25 MG PO Q8HR for Blood Pressure Management, #90 TAB Ipratropium-Albuterol Neb (Duoneb) 0.5-2.5 Mg/3 Ml Neb 1 AMPULE INH Q2HR NEB PRN for WHEEZING, #180 ML Levetiracetam Liq (Keppra Liq) 500 Mg/5 Ml Soln 500 MG NG Q12HR for Seizure Control, #300 ML Metoprolol Tartrate (Metoprolol Tartrate) 25 Mg Tab 50 MG PO Q12HR for Blood Pressure Management, #60 TAB Paroxetine (Paroxetine) 20 Mg Tab 20 MG PO DAILY for Anxiety, #30 TAB Sennosides-Docusate Sodium (Senna Plus 8.6-50 mg) 8.6 Mg-50 Mg Tab 1 TAB PO BID for Constipation, #60 TAB Continued Medications: Omeprazole (Omeprazole) 20 Mg Tab 20 MG PO DAILY, TAB 0 Refills Discontinued Medications: Metoprolol Tartrate (Metoprolol Tartrate) 25 Mg Tab 12.5 MG PO BID, TAB 0 Refills Martinez Diaz DO Jul 15, 2017 15:21
--- NOTE | 2017-07-15 15:27 | HHI.PR ---
Review/Management Diagnosis CVA--improved s/p tpa Plan continue asa and keppra case management consult to look into possible in patient rehab after dc. Diagnosis/Plan: Daily Summary 07/06 neuro hebert she was extubated and agitated but calmed down and followed commands moves 4 limbs well verbalizes words aware of children at bedside markedly improved!!! discussed with jonathan rodarte yesterday will add asa, status post tpa when more stable mri brain f/u ct negative 07/08 awake and following commands less agitated this am but combative yesterday requiring restraints dry mucosa TIA/Stroke, s/p tpa without focal motor deficits encephalopathy, some apparent dementia sx past year, any etoh hx? continue hydration and hopefully oob activities, diet etc soon Subjective Subjective Comments No acute events reported Active Medications Current Medications Medications (Trade) Dose Ordered Sig/Peyman Route Start Time Stop Time Status Last Admin (Trandate Inj) 20 mg Q15M PRN IV PUSH 07/05/17 13:15 07/11/17 03:04 (Apresoline Inj) 10 mg Q30M PRN IV PUSH 07/05/17 13:15 07/13/17 14:34 (Peridex 0.12% Liq) 15 ml BID@08,20 MT 07/05/17 20:00 07/12/17 20:00 (D50w (Vial) Inj) 25 ml UNSCH PRN IV PUSH 07/05/17 13:15 07/07/17 00:56 (Duoneb Neb) 1 ampule Q2HR NEB PRN INH 07/05/17 13:15 07/09/17 16:02 (Pepcid Inj) 20 mg Q12HR IV PUSH 07/05/17 21:00 07/14/17 09:26 (Zofran Inj) 4 mg Q6H PRN IV 07/05/17 13:15 Miscellaneous Information 1 Q361D XX 07/05/17 13:15 07/06/17 04:47 (Chlorhexidine 2% Cloth) Taper DAILY@04 TOP 07/06/17 04:00 07/02/18 03:59 07/13/17 04:00 (Chlorhexidine 2% Cloth) 3 pack UNSCH PRN TOP 07/05/17 13:15 (Anita-Colace) 1 tab BID PO 07/05/17 21:00 07/15/17 10:11 Propofol 100 ml @ 1.8 mls/hr TITRATE PRN IV 07/05/17 16:00 07/05/17 20:14 (Apresoline) 25 mg Q8HR PO 07/06/17 08:45 07/15/17 14:28 Dexmedetomidine HCl 200 mcg/ Sodium Chloride 52 ml @ 3.1 mls/hr [id number] PRN IV 07/06/17 21:18 07/08/17 06:16 (Paxil) 20 mg DAILY PO 07/08/17 09:45 07/15/17 10:11 Midazolam HCl 100 ml @ 2 mls/hr TITRATE PRN IV 07/08/17 17:00 (Lopressor) 50 mg Q12HR PO 07/09/17 21:00 07/15/17 10:11 (Lipitor) 40 mg HS PO 07/09/17 21:00 07/14/17 21:30 (Aspirin) 325 mg DAILY PO 07/13/17 09:00 07/15/17 10:11 Ceftriaxone Sodium 1000 mg/ Sodium Chloride 100 ml @ 200 mls/hr Q24H IV 07/12/17 12:00 07/14/17 12:16 (Ativan Inj) 0.3 mg Q4H PRN IV PUSH 07/13/17 12:15 (Keppra Liq) 500 mg Q12HR NG 07/14/17 11:00 07/15/17 10:11 Allergies Allergies Coded Allergies metronidazole (Verified Allergy, Unknown, HIVES, 07/07/17) Exam I&O / VS 07/15/17 07/15/17 07/16/17 14:59 22:59 06:59 # Voids 2 Vital Signs Date Time Temp Pulse Resp B/P (MAP) Pulse Ox O2 Delivery O2 Flow Rate FiO2 07/15/17 12:27 98.2 85 18 120/60 (80) 98 07/15/17 08:56 98.0 75 18 146/80 (102) 99 07/15/17 08:00 77 07/15/17 04:00 97.9 65 18 131/63 (85) 98 07/15/17 00:00 97.8 66 18 118/54 (75) 97 07/14/17 23:30 66 07/14/17 20:00 97.3 84 18 132/60 (84) 98 07/14/17 16:05 98.0 85 18 146/67 (93) 97 Exam Comments more alert and oriented. speech is normal and follows commands CN intact Motor--no gross asymmetry--5/5 strength BUE, no drift Objective Micro and Labs Laboratory Tests Test 07/14/17 17:00 White Blood Count 8.5 Red Blood Count 4.14 Hemoglobin 12.2 Hematocrit 37.4 Mean Corpuscular Volume 90.3 Mean Corpuscular Hemoglobin 29.4 Mean Corpuscular Hemoglobin Concent 32.5 Red Cell Distribution Width 17.3 Platelet Count 530 Mean Platelet Volume 7.8 Neutrophils (%) (Auto) 72.3 Lymphocytes (%) (Auto) 10.9 Monocytes (%) (Auto) 13.9 Eosinophils (%) (Auto) 2.3 Basophils (%) (Auto) 0.6 Neutrophils # (Auto) 6.1 Lymphocytes # (Auto) 0.9 Monocytes # (Auto) 1.2 Eosinophils # (Auto) 0.2 Basophils # (Auto) 0.0 CBC Comment DIFF FINAL Differential Comment Date/Time Source Procedure Growth Status 07/11/17 15:45 Urine Clean Catch Urine Culture - Final Klebsiella Oxytoca Complete Jas Charles PhD Jul 15, 2017 15:27
[2017-07-15 16:12] VITALS: BP 123/65; PULSE 72; RESP 18; TEMP 98.6; O2SAT 97
== END 2017-07-15 18:47 | DRG 61 ==
LOC: NEPC 11:42 → NEDA 13:16 → N03A 16:50 → N05A 07-13 18:45
PROVIDERS: ADMIT Hospitalist; ATTEND Hospitalist
PROC: 3E03317 Introduction of Other Thrombolytic into Peripheral Vein, Percutaneous Approach (ICD-10-PCS; principal; 2017-07-05)
PROC: 5A1945Z Respiratory Ventilation, 24-96 Consecutive Hours (ICD-10-PCS; 2017-07-05)
PROC: 06HM33Z Insertion of Infusion Device into Right Femoral Vein, Percutaneous Approach (ICD-10-PCS; 2017-07-05)
PROC: 0BH17EZ Insertion of Endotracheal Airway into Trachea, Via Natural or Artificial Opening (ICD-10-PCS; 2017-07-05)
DX: I63.512 Cerebral infarction due to unspecified occlusion or stenosis of left middle cerebral artery (principal); J96.01 Acute respiratory failure with hypoxia; J96.02 Acute respiratory failure with hypercapnia; E44.0 Moderate protein-calorie malnutrition; R56.9 Unspecified convulsions; N39.0 Urinary tract infection, site not specified; R47.1 Dysarthria and anarthria; R53.1 Weakness; Z78.1 Physical restraint status; R29.716 NIHSS score 16; I10 Essential (primary) hypertension; E78.00 Pure hypercholesterolemia, unspecified; E78.5 Hyperlipidemia, unspecified; R73.9 Hyperglycemia, unspecified; F41.9 Anxiety disorder, unspecified; F03.90 Unspecified dementia, unspecified severity, without behavioral disturbance, psychotic disturbance, mood disturbance, and anxiety
CPT/HCPCS: 31500; 36223; 36556; 36600; 51702; 70450; 70496; 70498; 70544; 70551; 71010; 76937; 77001; 80048; 80053; 80307; 81001; 82435; 82550; 82565; 82805; 82947; 82948; 83036; 83735; 84100; 84132; 84295; 84439; 84443; 84484; 84520; 85025; 85027; 85384; 85610; 85730; 86077; 86850; 86870; 86900; 86901; 86920; 86922; 87077; 87086; 87186; 87641; 93005; 94002; 94003; 94640; 94664; 95819; C1769; C1887; C1894; J0360; J0696; J1630; J2060; J2250; J2997; J3010; J3475; J3480; J3486; J7030; Q9967

== ENCOUNTER → 2017-12-02 | Day surgery (SDC) | payer OTHER ==
[~2017-12-02] MED LIST changes: +ASPI-183 PO; +ATOR40TA16 PO; +BACT800T5 PO; +HYDR-3799 PO; +IPRASOL INH; +LACTATED RINGER'S 1000 ML INJ 1,000 ML ONE; +LEVE500S NG; +LIDOCAINE HCL 1% 50 ML VIAL ONE; -METO25 PO; +METO25TA3 PO; +OMEP20TA93 PO; +PARO20TA2 PO; +SENN1TAB PO; -SIMV40 PO
== END | disposition home or self-care (01) ==
LOC: ESDC 06:58
PROVIDERS: ATTEND Orthopaedic Surgery Orthopaedic Surgery of the Spine
DX: M17.11 Unilateral primary osteoarthritis, right knee (principal); Z53.8 Procedure and treatment not carried out for other reasons; I48.91 Unspecified atrial fibrillation
CPT/HCPCS: 93005; G0463; J7120; 99211

== ENCOUNTER 2018-01-20 10:00 | Inpatient (IN) | payer OTHER, MEDICARE ==
[~2018-01-20] VITALS: Ht 165.1 cm; Wt 55.1 kg
[~2018-01-20 10:00] MED LIST changes: -LACTATED RINGER'S 1000 ML INJ 1,000 ML ONE; -LIDOCAINE HCL 1% 50 ML VIAL ONE
[2018-01-20 10:13] VITALS: BP 156/84; PULSE 116; RESP 24; O2SAT 95
--- NOTE | 2018-01-20 10:20 | PD ---
HPI Chief Complaint: Fall Time Seen by Provider: 10:17 Travel History International Travel<30 days: No Contact w/Intl Traveler<30days: No Traveled to known affect area: No History of Present Illness HPI 77-year-old female patient presents to the ER today brought in by family, apparently the son states she has been getting more disoriented in the last few days, and had fallen today injuring her left forehead and left hip area, does not remember falling. She denies any current chest pains or shortness of breath. Modifying Factors: None Associated Signs & Symptoms: Fall, possible syncope, head injury, left hip injury Risk Factors: Elderly PFSH Past Medical History Arthritis: Yes (knees) Anxiety: Yes (controlled by medication) Depression: Yes (controlled by medication) Cardiovascular Problems: Yes High Cholesterol: Yes (controlled by medication) Cerebrovascular Accident: Yes Diminished Hearing: No Endocrine: No GERD: Yes Genitourinary: No Hypertension: Yes Immune Disorder: No Musculoskeletal: Yes Neurologic: No Reproductive: No Respiratory: No Past Surgical History Abdominal Surgery: No Cardiac Surgery: No Ear Surgery: No Endocrine Surgery: No Eye Surgery: Yes (cataract) Gynecologic Surgery: Yes (uterin sling; hysterectomy) Hysterectomy: Yes Joint Replacement: Yes (partial knee) Oral Surgery: No Thoracic Surgery: No Other Surgery: Yes Social History Alcohol Use: No Tobacco Use: No Substance Use: No Allergies-Medications (Allergen,Severity, Reaction): Coded Allergies: metronidazole (Verified Allergy, Unknown, HIVES, 07/07/17) Reported Meds & Prescriptions Reported Meds & Active Scripts Active Paroxetine (Paroxetine HCl) 20 Mg Tab 20 Mg PO DAILY Metoprolol Tartrate 25 Mg Tab 50 Mg PO Q12HR Hydralazine HCl 25 Mg Tablet 25 Mg PO Q8HR Atorvastatin (Atorvastatin Calcium) 40 Mg Tab 40 Mg PO HS Reported Xarelto (Rivaroxaban) 15 Mg Tab 15 Mg PO DAILY Review of Systems ROS Limitations: Altered Mental Status Physical Exam Narrative GENERAL: Well-developed elderly white female patient currently in mild distress. Awake, disoriented. SKIN: Focused skin assessment warm/dry. HEAD: Left temporal area ecchymosis. Normocephalic. EYES: Pupils equal and round. No scleral icterus. No injection or drainage. ENT: No nasal bleeding or discharge. Mucous membranes pink and moist. NECK: Trachea midline. No JVD. CARDIOVASCULAR: Regular rate and rhythm. No murmur appreciated. RESPIRATORY: No accessory muscle use. Clear to auscultation. Breath sounds equal bilaterally. Pelvis: Stable, tender to palpation in the left hip with notable ecchymosis and edema over that area. GASTROINTESTINAL: Abdomen soft, non-tender, nondistended. Hepatic and splenic margins not palpable. MUSCULOSKELETAL: No obvious deformities. No clubbing. No cyanosis. No edema. NEUROLOGICAL: Awake and alert. No obvious cranial nerve deficits. Motor grossly within normal limits. Normal speech. PSYCHIATRIC: Appropriate mood and affect; insight and judgment normal. Data Data Last Documented VS Vital Signs Date Time Temp Pulse Resp B/P (MAP) Pulse Ox O2 Delivery O2 Flow Rate FiO2 01/20/18 10:13 116 24 156/84 (108) 95 Room Air Orders Orders Electrocardiogram (01/20/18 10:17) Ammonia (01/20/18 10:17) Complete Blood Count With Diff (01/20/18 10:17) Comprehensive Metabolic Panel (01/20/18 10:17) Prothrombin Time / Inr (Pt) (01/20/18 10:17) Act Partial Throm Time (Ptt) (01/20/18 10:17) Troponin I (01/20/18 10:17) Urinalysis - C+S If Indicated (01/20/18 10:17) Blood Culture (01/20/18 10:17) Chest, Single Ap (01/20/18 10:17) Ct Brain W/O Iv Contrast(Rout) (01/20/18 10:17) Blood Glucose (01/20/18 10:17) Ecg Monitoring (01/20/18 10:17) Iv Access Insert/Monitor (01/20/18 10:17) Oximetry (01/20/18 10:17) Sodium Chloride 0.9% Flush (Ns Flush) (01/20/18 10:30) Hip, Uni(Ap&Lat) W Ap Pelvis (01/20/18 10:17) Sodium Chlorid 0.9% 500 Ml Inj (Ns 500 M (01/20/18 11:15) Urine Culture (01/20/18 10:45) Piperacil-Tazo 4.5 Gm Premix (Zosyn 4.5 (01/20/18 12:06) Lactic Acid Sepsis Protocol (01/20/18 12:06) Ct Hip W/O Contrast (01/20/18 ) Admit Order (Ed Use Only) (01/20/18 12:36) Consult Orthopedic (01/20/18 ) Vital Signs (Adult) Q4H (01/20/18 12:37) Activity Bed Rest (01/20/18 12:37) Bedside Glucose ILANA.CSUGAR (01/20/18 12:37) Media Production Operator / Telemetry .CONTINUOUS (01/20/18 12:37) Intake + Output ILANA.QSHIFT (01/20/18 12:37) Diet Npo (01/20/18 Lunch) Sodium Chlor 0.9% 1000 Ml Inj (Ns 1000 M (01/20/18 12:37) Acetaminophen (Tylenol) (01/20/18 12:45) Ondansetron Inj (Zofran Inj) (01/20/18 12:45) Basic Metabolic Panel (Bmp) (01/21/18 06:00) Complete Blood Count With Diff (01/21/18 06:00) Electrocardiogram (01/20/18 12:37) Electrocardiogram (01/20/18 18:37) Resp Oxygen Clay C Titrat 1-4 L (01/20/18 12:37) Case Management Consult (01/20/18 12:37) Heparin Inj (Heparin Inj) (01/20/18 12:45) Scd Bilateral/Knee High ILANA.BID (01/20/18 12:37) Acetamin-Hydrocod 325-7.5 Mg (Finley 7.5 (01/20/18 12:45) Acetamin-Hydrocod 325-10 Mg (Finley 10-32 (01/20/18 12:45) Morphine Inj (Morphine Inj) (01/20/18 12:45) Naloxone Inj (Narcan Inj) (01/20/18 12:45) Docusate Sodium-Senna (Anita-Colace) (01/20/18 21:00) Magnesium Hydroxide Liq (Milk Of Magnesi (01/20/18 12:45) Sennosides (Senokot) (01/20/18 12:45) Ceftriaxone Inj (Rocephin Inj) (01/20/18 12:45) Atorvastatin (Lipitor) (01/20/18 21:00) Hydralazine (Apresoline) (01/20/18 14:00) Metoprolol Tartrate (Lopressor) (01/20/18 21:00) Paroxetine (Paxil) (01/21/18 09:00) ^ Other Nursing Orders (01/20/18 12:37) (Hub Use Only)Inp Phy Cons/Ref (01/20/18 ) Labs Laboratory Tests Test 01/20/18 10:20 01/20/18 10:30 01/20/18 10:45 01/20/18 12:25 White Blood Count 17.6 TH/MM3 Red Blood Count 3.63 MIL/MM3 Hemoglobin 10.7 GM/DL Hematocrit 32.1 % Mean Corpuscular Volume 88.4 FL Mean Corpuscular Hemoglobin 29.5 PG Mean Corpuscular Hemoglobin Concent 33.4 % Red Cell Distribution Width 16.2 % Platelet Count 439 TH/MM3 Mean Platelet Volume 7.5 FL Neutrophils (%) (Auto) 87.5 % Lymphocytes (%) (Auto) 4.6 % Monocytes (%) (Auto) 7.4 % Eosinophils (%) (Auto) 0.1 % Basophils (%) (Auto) 0.4 % Neutrophils # (Auto) 15.4 TH/MM3 Lymphocytes # (Auto) 0.8 TH/MM3 Monocytes # (Auto) 1.3 TH/MM3 Eosinophils # (Auto) 0.0 TH/MM3 Basophils # (Auto) 0.1 TH/MM3 CBC Comment DIFF FINAL Differential Comment Prothrombin Time 12.2 SEC Prothromb Time International Ratio 1.2 RATIO Activated Partial Thromboplast Time 28.2 SEC Blood Urea Nitrogen 25 MG/DL Creatinine 0.97 MG/DL Random Glucose 141 MG/DL Total Protein 7.0 GM/DL Albumin 3.4 GM/DL Calcium Level 9.3 MG/DL Alkaline Phosphatase 111 U/L Aspartate Amino Transf (AST/SGOT) 42 U/L Alanine Aminotransferase (ALT/SGPT) 26 U/L Total Bilirubin 1.0 MG/DL Sodium Level 134 MEQ/L Potassium Level 4.5 MEQ/L Chloride Level 100 MEQ/L Carbon Dioxide Level 21.6 MEQ/L Anion Gap 12 MEQ/L Estimat Glomerular Filtration Rate 55 ML/MIN Troponin I 0.04 NG/ML Ammonia 21 MCMOL/L Urine Color YELLOW Urine Turbidity HAZY Urine pH 6.0 Urine Specific [place] 1.018 Urine Protein TRACE mg/dL Urine Glucose (UA) NEG mg/dL Urine Ketones NEG mg/dL Urine Occult Blood TRACE Urine Nitrite POS Urine Bilirubin NEG Urine Urobilinogen LESS THAN 2.0 MG/DL Urine Leukocyte Esterase TRACE Urine WBC 10 /hpf Urine Bacteria MANY /hpf Microscopic Urinalysis Comment CATH-CULTURE IND MDM Medical Decision Making Medical Screen Exam Complete: Yes Emergency Medical Condition: Yes Medical Record Reviewed: Yes Interpretation(s) Laboratory Tests Test 01/20/18 10:20 01/20/18 10:30 01/20/18 10:45 01/20/18 12:25 White Blood Count 17.6 TH/MM3 (4.0-11.0) Red Blood Count 3.63 MIL/MM3 (4.00-5.30) Hemoglobin 10.7 GM/DL (11.6-15.3) Hematocrit 32.1 % (35.0-46.0) Neutrophils (%) (Auto) 87.5 % (16.0-70.0) Lymphocytes (%) (Auto) 4.6 % (9.0-44.0) Neutrophils # (Auto) 15.4 TH/MM3 (1.8-7.7) Lymphocytes # (Auto) 0.8 TH/MM3 (1.0-4.8) Monocytes # (Auto) 1.3 TH/MM3 (0-0.9) Prothrombin Time 12.2 SEC (9.8-11.6) Blood Urea Nitrogen 25 MG/DL (7-18) Random Glucose 141 MG/DL (74-106) Aspartate Amino Transf (AST/SGOT) 42 U/L (15-37) Sodium Level 134 MEQ/L (136-145) Estimat Glomerular Filtration Rate 55 ML/MIN (>89) Urine Turbidity HAZY (CLEAR) Urine Occult Blood TRACE (NEG) Urine Nitrite POS (NEG) Urine Leukocyte Esterase TRACE (NEG) Urine WBC 10 /hpf (0-5) Urine Bacteria MANY /hpf (NONE) Last 24 hours Impressions Hip and Pelvis X-Ray 01/20/18 1017 Signed Impressions: Service Date/Time: January 11:18 - CONCLUSION: 1. Questionable nondisplaced, impacted femoral neck fracture on the left. CT imaging of the left hip is warranted for further assessment. Caio Adame MD Head CT 01/20/18 1017 Signed Impressions: Service Date/Time: January 10:58 - CONCLUSION: 1. No acute findings. Large posterior fossa fluid collection. Differential diagnosis includes Dandy-Walker variant or an arachnoid cyst. Finding is stable. Olvin Palomo MD Chest X-Ray 01/20/18 1017 Signed Impressions: Service Date/Time: January 11:18 - CONCLUSION: 1. COPD changes. No acute abnormality. Caio Adame MD Differential Diagnosis Fall, altered mental status, head injury, left hip injury: Rule out intracranial injuries versus hip fracture versus sepsis versus dehydration versus metabolic issues Narrative Course Lab work shows elevated white count a UTI concerning for sepsis. IV antibiotics were initiated after cultures were drawn. X-rays show a possible nondisplaced hip fracture. CT was ordered for further evaluation. CT of the brain is negative for any signs of acute intracranial processes or injuries. At this point, my plan would be to admit her for further evaluation and treatment of the UTI as well. Orthopedics has been consulted on the case. Case was discussed with Dr. Zacarias for admission. Diagnosis Primary Impression: UTI (urinary tract infection) Additional Impressions: Sepsis Closed left hip fracture Admitting Information Admitting Physician Requests: Admit Andrew Wallace MD Jan 20, 2018 10:20
[2018-01-20] MEDS ORDERED: XARE15TA PO (10:21)
[2018-01-20] MEDS ORDERED: SODIUM CHLORIDE 0.9% FLUSH 10 ML FLUSH IV FLUSH PRN (10:30)
[2018-01-20 11:02] LABS: AUTOMATED NEUTROPHIL # 15.4 TH/MM3 (1.8-7.7); BASOPHIL # 0.1 TH/MM3 (0-0.2); BASOPHIL % 0.4 % (0.0-2.0); EOSINOPHIL % 0.1 % (0.0-4.0); HEMATOCRIT 32.1 % (35.0-46.0); HEMOGLOBIN 10.7 GM/DL (11.6-15.3); LYMPH % 4.6 % (9.0-44.0); LYMPHOCYTE # 0.8 TH/MM3 (1.0-4.8); MEAN CELL VOLUME 88.4 FL (80.0-100.0); MEAN CORPUSCULAR HEMOGLOBIN 29.5 PG (27.0-34.0); MEAN CORPUSCULAR HGB CONC 33.4 % (32.0-36.0); MEAN PLATELET VOLUME 7.5 FL (7.0-11.0); MONO % 7.4 % (0.0-8.0); MONOCYTE # 1.3 TH/MM3 (0-0.9); NEUT % 87.5 % (16.0-70.0); PLATELET COUNT 439 TH/MM3 (150-450); RED BLOOD COUNT 3.63 MIL/MM3 (4.00-5.30); RED CELL DISTRIBUTION WIDTH 16.2 % (11.6-17.2); WHITE BLOOD COUNT 17.6 TH/MM3 (4.0-11.0)
[2018-01-20 11:10] LABS: INTERNATIONAL NORMALIZED RATIO 1.2 RATIO; PROTHROMBIN TIME - PATIENT 12.2 SEC (9.8-11.6)
--- NOTE | 2018-01-20 11:11 | RADRPT ---
EXAM DATE/TIME: 01/20/2018 10:58 [facility] COMPARISON: CT BRAIN W/O CONTRAST, July 06, 2017, 14:51. INDICATIONS : Trauma, fall. Altered mental status. RADIATION DOSE: 33.29 CTDIvol (mGy) MEDICAL HISTORY : Cerebrovascular disease. Hypertension. SURGICAL HISTORY : Hysterectomy. ENCOUNTER: Initial ACUITY: 1 day PAIN SCALE: 0/10 LOCATION: cranial TECHNIQUE: Multiple contiguous axial images were obtained of the head. Using automated exposure control and adj ustment of the mA and/or kV according to patient size, radiation dose was kept as low as reasonably a chievable to obtain optimal diagnostic quality images. DICOM format image data is available electro nically for review and comparison. FINDINGS: Compare June 2017. No intracranial hemorrhage. There is a large posterior fossa cyst, possibly a Da ndy Walker variant or arachnoid cyst. 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 No hydrocephalus. Ventricular size is stable. No acute bony abnormalities. CONCLUSION: 1. No acute findings. Large posterior fossa fluid collection. Differential diagnosis includes Dandy-W alker variant or an arachnoid cyst. Finding is stable. Olvin Palomo MD on January 20, 2018 at 11:04 Board Certified Radiologist. This report was verified electronically.
[2018-01-20] MEDS ORDERED: SODIUM CHLORID 0.9% 500 ML INJ 500 ML IV ONE (11:15)
[2018-01-20 11:17] LABS: ALT (GPT) 26 U/L (10-53)
[2018-01-20 11:17] LABS: BACTERIA, URINE MANY /hpf; BILIRUBIN, URINE NEG (NEG); BLOOD, URINE TRACE (NEG); GLUCOSE,URINE NEG (NEG); KETONE, URINE NEG (NEG); NITRITE,URINE POS (NEG); URINE COLOR YELLOW (YELLW/STRAW); URINE LEUKOCYTE ESTERASE TRACE (NEG)
[2018-01-20 11:21] LABS: ALKALINE PHOSPHATASE 111 U/L (45-117); TROPONIN I 0.04 NG/ML (0.02-0.05)
[2018-01-20 11:23] LABS: ALBUMIN 3.4 GM/DL (3.4-5.0); AST (GOT) 42 U/L (15-37); BICARBONATE 21.6 MEQ/L (21.0-32.0); BLOOD UREA NITROGEN 25 MG/DL (7-18); CALCIUM 9.3 MG/DL (8.5-10.1); CHLORIDE 100 MEQ/L (98-107); CREATININE 0.97 MG/DL (0.50-1.00); GLOMERULAR FILTRATION RATE 55 ML/MIN (>89); GLUCOSE,RANDOM 141 MG/DL (74-106); SODIUM (NA) 134 MEQ/L (136-145)
--- NOTE | 2018-01-20 11:57 | RADRPT ---
EXAM DATE/TIME: 01/20/2018 11:18 [facility] COMPARISON: CHEST SINGLE AP, July 06, 2017, 4:18. INDICATIONS : Shortness of breath after fall. MEDICAL HISTORY : Cerebrovascular disease. Hypertension. SURGICAL HISTORY : Hysterectomy. Bladder surgery. ENCOUNTER: Initial ACUITY: 1 day PAIN SCORE: 0/10 LOCATION: Bilateral chest FINDINGS: There are mild chronic interstitial changes suggesting COPD. Mediastinal contours are within normal l imits. The heart is normal in size. No pneumothorax is seen. The visualized bony structures appear gr ossly intact. CONCLUSION: 1. COPD changes. No acute abnormality. Caio Adame MD on January 20, 2018 at 11:54 Board Certified Radiologist. This report was verified electronically.
--- NOTE | 2018-01-20 11:59 | RADRPT ---
EXAM DATE/TIME: 01/20/2018 11:18 [facility] COMPARISON: CHEST SINGLE AP, July 06, 2017, 4:18. INDICATIONS : Left hip pain after fall today. MEDICAL HISTORY : Cerebrovascular disease. Hypertension. SURGICAL HISTORY : Hysterectomy. Bladder surgery. ENCOUNTER: Initial ACUITY: 1 day PAIN SCORE: 10/10 LOCATION: Left hip. FINDINGS: The osseous structures of the pelvis are intact. The femoral heads are well situated within the aceta bular fossa. There are arthritic changes. There is subtle sclerotic density through the left femoral back. I'm concerned there is a nondisplaced femoral neck fracture. CT imaging through the pelvis is w arranted for further assessment. There are multiple surgical clips overlying the abdomen. CONCLUSION: 1. Questionable nondisplaced, impacted femoral neck fracture on the left. CT imaging of the left hip is warranted for further assessment. Caio Adame MD on January 20, 2018 at 11:55 Board Certified Radiologist. This report was verified electronically.
[2018-01-20] MEDS ORDERED: PIPERACIL-TAZO 4.5 GM PREMIX 100 ML IV STA (12:06)
[2018-01-20] MEDS ORDERED: SODIUM CHLOR 0.9% 1000 ML INJ 1,000 ML IV SCH (12:37)
[2018-01-20] MEDS ORDERED: NALOXONE HCL 0.4 MG/ML AMP IV PUSH PRN (12:45)
[2018-01-20] MEDS ORDERED: MORPHINE SULFATE 4 MG/ML INJ IV PUSH PRN (12:45)
[2018-01-20] MEDS ORDERED: ACETAMINOPHEN/HYDROcodone 325 MG/10 MG TAB PO PRN (12:45)
[2018-01-20] MEDS ORDERED: ONDANSETRON HCL 4 MG/2 ML VIAL IVP PRN (12:45)
[2018-01-20] MEDS ORDERED: MAGNESIUM HYDROXIDE SUSP 30 ML CUP PO PRN (12:45)
[2018-01-20] MEDS ORDERED: ACETAMINOPHEN 325 MG TAB PO PRN (12:45)
[2018-01-20] MEDS ORDERED: ACETAMINOPHEN/HYDROcodone 325 MG/7.5 MG TAB PO PRN (12:45)
[2018-01-20] MEDS ORDERED: SENNOSIDES 8.6 MG TAB PO PRN (12:45)
[2018-01-20 13:03] LABS: LACTIC ACID SEPSIS PROTOCOL 2.7 mmol/L (0.4-2.0)
[2018-01-20] MEDS: hydrALAZINE HCL 25 MG TAB PO SCH ×2 (13:48→21:55)
[2018-01-20] MEDS: cefTRIAXone INJ 1,000 MG in SODIUM CHLORIDE 0.9% INJ 100 ML IV SCH (13:48)
[2018-01-20] MEDS: HEPARIN SODIUM - SQ 10,000 UNITS/ML VIAL SQ SCH ×2 (13:48→21:56)
[2018-01-20 13:59] VITALS: BP 141/70; PULSE 104; RESP 20; O2SAT 99
--- NOTE | 2018-01-20 14:02 | RADRPT ---
EXAM DATE/TIME: 01/20/2018 12:51 [facility] COMPARISON: No previous studies available for comparison. INDICATIONS : Left hip pain post fall. RADIATION DOSE: 11.05 CTDIvol (mGy) MEDICAL HISTORY : Cerebrovascular disease. Hypertension. SURGICAL HISTORY : Hysterectomy. ENCOUNTER: Initial ACUITY: 1 day PAIN SCALE: 7/10 LOCATION: Left pelvis TECHNIQUE: Volumetric scanning of the hip was performed. Using automated exposure control and adjustment of the mA and/or kV according to patient size, radiation dose was kept as low as reasonably achievable to o btain optimal diagnostic quality images. DICOM format image data is available electronically for rev iew and comparison. FINDINGS: BONES: Subtle nondisplaced subcapital left femoral neck fracture. Remaining osseous structures appear intact . Alignment is maintained. JOINTS: No evidence of joint narrowing or effusion. SOFT TISSUES: 6.1 x 5.2 cm posterior proximal thigh hematoma with surrounding soft tissue stranding. Surgical clips in the anterior inferior pelvis. CONCLUSION: 1. Subtle nondisplaced subcapital left femoral neck fracture with associated 6 cm posterior proximal thigh hematoma. Eliezer Rivas MD on January 20, 2018 at 13:23 Board Certified Radiologist. This report was verified electronically.
[2018-01-20] MEDS ORDERED: HYDROmorphone HCL PF 2 MG/ML VIAL ONE (14:13)
--- NOTE | 2018-01-20 16:13 | MH ---
cc: Wyatt Miguel MD, Rewadee MD Lorazebaum,Avi Hickey,Stevie Avila,Sheng MEEKS DATE OF ADMISSION: 01/20/2018 CHIEF COMPLAINT: Left hip pain. HISTORY OF PRESENT ILLNESS: A 77-year-old female presented with the following history. The patient had an episode, probably last evening in which she fell. She is amnestic of the event. She was able to telephone her son earlier this morning and went by her living arrangements and found her to have pain in the left hip and inability to ambulate with swelling to the left lateral hip area. The patient does have a medical history of a cerebrovascular accident in June 2017. She was treated by Dr. Avila of neurology. The patient also had a recent episode of atrial fibrillation that is being managed by Dr. Hickey of cardiology. The patient has had anticoagulation using Xarelto 20 mg daily. The patient has no other complaints other than left hip pain. Diagnostic studies in the emergency department, including an x-ray of the pelvis and left hip [address] scan of the left hip showed the patient to have a left hip subcapital femoral neck fracture with no significant displacement. The patient also has a soft tissue hematoma involving the posterolateral hip and pelvis region. PAST MEDICAL HISTORY: See the chart. The patient, 07/20/2016, underwent a right knee arthroscopic surgery with a subtotal medial meniscectomy. On 10/15/2016, left knee arthroscopic surgery, subtotal medial meniscectomy with removal of multiple cartilaginous loose bodies. On 01/28/2017, the patient underwent a right knee medial unicondylar arthroplasty for medial compartment osteoarthritis. The patient soon thereafter sustained an injury to her knee, falling on the knee and sustained a fracture involving the proximal tibial region. She was recently cleared by cardiology yesterday to undergo right revisional total knee arthroplasty because of a failed medial unicondylar arthroplasty with a fracture involving the proximal tibial region. SOCIAL HISTORY: The patient is a . She lives in [place] by herself. 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 She does not drink alcohol. She does not smoke cigarettes. FAMILY HISTORY: See medical record. REVIEW OF SYSTEMS: Negative. PHYSICAL EXAMINATION: A 77-year-old female, looks stated age, pleasant, in no acute distress. LUNGS: Clear. CARDIAC: Regular regular rate and rhythm. No murmurs. ABDOMEN: Soft. No tenderness. Left hip shows no shortening or deformity. She does have moderate swelling and ecchymosis on the posterolateral hip region compatible with a hematoma. LABORATORIES: Laboratory studies showed the patient to have an elevated white count of 17,000. The patient has a urinalysis compatible with a urinary tract infection. The emergency department physician has initiated medical therapy and antibiotics for the treatment of her urinary tract infection. IMPRESSION: 1. Left hip Garden II nondisplaced subcapital femoral neck fracture. 2. History of atrial fibrillation, Xarelto anticoagulation. 3. History of cerebrovascular accident 06/2017. No evidence of new neurologic deficit. 4. Status post right knee medial unicondylar arthroplasty, history of proximal tibial fracture, failed components. 5. Urinary tract infection. PLAN: Patient will be scheduled for left hip femoral neck fracture open treatment internal fixation with evacuation of the hematoma. I explained at length to the patient and her son, Eleazar, her hip disorder, the proposed surgical procedure, possible complications. These include infection, hemorrhaging, hematoma formation, nonunion, delayed union, failure of internal fixation, osteonecrosis, possibility to undergo further surgery, which include a total hip arthroplasty. Also, medical complications, which include sepsis, myocardial infarction, CVA and other possible medical complications associated with her underlying medical comorbidities. They state that they understand and wish to proceed ahead with the procedure. MD SUZANNE Chou/CAREY , 03:26 PM , 04:12 PM TRAV
[2018-01-20 17:00] VITALS: BP 127/59; PULSE 95; RESP 18; TEMP 98.6; O2SAT 93
--- NOTE | 2018-01-20 17:19 | HHI.HP ---
HPI Service [facility] Primary Care Physician Avi Rogers M.D. Admission Diagnosis UTI/sepsis/left hip fracture Diagnoses: Chief Complaint: Full change in mental status UTI Travel History International Travel<30 Days: No Contact w/Intl Traveler <30 Da: No Traveled to Known Affected Are: No History of Present Illness 77-year-old female was brought to the ED by her son and hit her after she sustained a fall left face, she was found to have a UTI, with tachycardia lactic acidosis and WBC of 17 K, patient is oriented to person but not to place and time, she is very poor historian, as per her son she has been irritable and not in her regular status. To me patient denied chest pain constipation dysuria urgency or frequency. She does not remember the episode of the fall or having short of breath lightheaded lightheadedness or dizziness, she has a history of bilateral meniscus tear and right knee partial replacement and she was planned ongoing for total knee replacement . Also in ED x-ray of the head showed possible left femoral neck fracture, CT of the lower extremity ordered to verify Review of Systems ROS Limitations: Poor Historian Full system review was limited mostly obtained from the son as well as the patient and it was negative except for what mentioned in history of present illness Past Family Social History Past Medical History CAD Hyperlipidemia GERD Hypertension Arthritis Anxiety Cataract Partial right knee replacement Hysterectomy Past Surgical History As above Allergies: Coded Allergies: metronidazole (Verified Allergy, Unknown, HIVES, 07/07/17) Family History Father had prostate cancer Social History Denied tobacco alcohol or illicit drug abuse Physical Exam Vital Signs Vital Signs Date Time Temp Pulse Resp B/P (MAP) Pulse Ox O2 Delivery O2 Flow Rate FiO2 01/20/18 13:59 104 20 141/70 (93) 99 Room Air 01/20/18 10:13 116 24 156/84 (108) 95 Room Air Physical Exam GENERAL: Frail 77 years old female in no acute distress SKIN: Ecchymosis on the left forehead HEAD: Ecchymosis on the left forehead, normocephalic. EYES: Pupils equal round and reactive. Extraocular motions intact. No scleral icterus. ENT: Nose without bleeding, or drainage, Airway patent. NECK: Trachea midline. Supple CARDIOVASCULAR: Regular rate and rhythm without murmurs, gallops, or rubs. RESPIRATORY: Fair air entry bilaterally. No wheezes, rales, or rhonchi. GASTROINTESTINAL: Abdomen soft, non-tender, nondistended. Positive bowel sounds MUSCULOSKELETAL: Extremities without clubbing, cyanosis, or edema. Pedal pulses appreciated NEUROLOGICAL: Awake and alert. Moves all extremity. Normal speech.no focal neurological deficit Laboratory Laboratory Tests Test 01/20/18 10:20 01/20/18 10:30 01/20/18 10:45 01/20/18 12:25 White Blood Count 17.6 Red Blood Count 3.63 Hemoglobin 10.7 Hematocrit 32.1 Mean Corpuscular Volume 88.4 Mean Corpuscular Hemoglobin 29.5 Mean Corpuscular Hemoglobin Concent 33.4 Red Cell Distribution Width 16.2 Platelet Count 439 Mean Platelet Volume 7.5 Neutrophils (%) (Auto) 87.5 Lymphocytes (%) (Auto) 4.6 Monocytes (%) (Auto) 7.4 Eosinophils (%) (Auto) 0.1 Basophils (%) (Auto) 0.4 Neutrophils # (Auto) 15.4 Lymphocytes # (Auto) 0.8 Monocytes # (Auto) 1.3 Eosinophils # (Auto) 0.0 Basophils # (Auto) 0.1 CBC Comment DIFF FINAL Differential Comment Prothrombin Time 12.2 Prothromb Time International Ratio 1.2 Activated Partial Thromboplast Time 28.2 Blood Urea Nitrogen 25 Creatinine 0.97 Random Glucose 141 Total Protein 7.0 Albumin 3.4 Calcium Level 9.3 Alkaline Phosphatase 111 Aspartate Amino Transf (AST/SGOT) 42 Alanine Aminotransferase (ALT/SGPT) 26 Total Bilirubin 1.0 Sodium Level 134 Potassium Level 4.5 Chloride Level 100 Carbon Dioxide Level 21.6 Anion Gap 12 Estimat Glomerular Filtration Rate 55 Troponin I 0.04 Ammonia 21 Urine Color YELLOW Urine Turbidity HAZY Urine pH 6.0 Urine Specific Mcrae [place] 1.018 Urine Protein TRACE Urine Glucose (UA) NEG Urine Ketones NEG Urine Occult Blood TRACE Urine Nitrite POS Urine Bilirubin NEG Urine Urobilinogen LESS THAN 2.0 Urine Leukocyte Esterase TRACE Urine WBC 10 Urine Bacteria MANY Microscopic Urinalysis Comment CATH-CULTURE IND Lactic Acid Level 2.7 Test 01/20/18 16:37 Date/Time Source Procedure Growth Status 01/20/18 10:30 Blood Peripheral Aerobic Blood Culture Pending Received 01/20/18 10:30 Blood Peripheral Anaerobic Blood Culture Pending Received 01/20/18 10:45 Urine Catheterized Urine Urine Culture Pending Received Result Diagram: 01/20/18 1020 01/20/18 1020 Imaging Last Impressions Hip and Pelvis X-Ray 01/20/18 1017 Signed Impressions: Service Date/Time: January 11:18 - CONCLUSION: 1. Questionable nondisplaced, impacted femoral neck fracture on the left. CT imaging of the left hip is warranted for further assessment. Caio Adame MD Head CT 01/20/18 1017 Signed Impressions: Service Date/Time: January 10:58 - CONCLUSION: 1. No acute findings. Large posterior fossa fluid collection. Differential diagnosis includes Dandy-Walker variant or an arachnoid cyst. Finding is stable. Olvin Palomo MD Chest X-Ray 01/20/18 1017 Signed Impressions: Service Date/Time: January 11:18 - CONCLUSION: 1. COPD changes. No acute abnormality. Caio Adame MD Lower Extremity CT 01/20/18 0000 Signed Impressions: Service Date/Time: January 12:51 - CONCLUSION: 1. Subtle nondisplaced subcapital left femoral neck fracture with associated 6 cm posterior proximal thigh hematoma. MD Yusra Anderson VTE Risk Assessment Caprini VTE Risk Assessment: Mod/High Risk (score >= 2) Caprini Risk Assessment Model Point Value = 1 Point Value = 2 Point Value = 3 Point Value = 5 Age 41-60 Minor surgery BMI > 25 kg/m2 Swollen legs Varicose veins or History of unexplained or recurrent spontaneous Oral contraceptives or hormone replacement Sepsis (< 1 month) Serious lung disease, including pneumonia (< 1 month) Abnormal pulmonary function Acute myocardial infarction Congestive heart failure (< 1 month) History of inflammatory bowel disease Medical patient at bed rest Age 61-74 Arthroscopic surgery Major open surgery (> 45 min) Laparoscopic surgery (> 45 min) Malignancy Confined to bed (> 72 hours) Immobilizing plaster cast Central venous access Age >= 75 History of VTE Family history of VTE Factor V Leiden Prothrombin [id number] Lupus anticoagulant Anticardiolipin antibodies Elevated serum homocysteine Heparin-induced thrombocytopenia Other congenital or acquired thrombophilia Stroke (< 1 month) Elective arthroplasty Hip, pelvis, or leg fracture Acute spinal cord injury (< 1 month) Prophylaxis Regimen Total Risk Factor Score Risk Level Prophylaxis Regimen 0-1 Low Early ambulation 2 Moderate Order ONE of the following: *Sequential Compression Device (SCD) *Heparin 5000 units SQ BID 3-4 Higher Order ONE of the following medications: *Heparin 5000 units SQ TID *Enoxaparin/Lovenox 40 mg SQ daily (WT < 150 kg, CrCl > 30 mL/min) *Enoxaparin/Lovenox 30 mg SQ daily (WT < 150 kg, CrCl > 10-29 mL/min) *Enoxaparin/Lovenox 30 mg SQ BID (WT < 150 kg, CrCl > 30 mL/min) AND/OR *Sequential Compression Device (SCD) 5 or more Highest Order ONE of the following medications: *Heparin 5000 units SQ TID (Preferred with Epidurals) *Enoxaparin/Lovenox 40 mg SQ daily (WT < 150 kg, CrCl > 30 mL/min) *Enoxaparin/Lovenox 30 mg SQ daily (WT < 150 kg, CrCl > 10-29 mL/min) *Enoxaparin/Lovenox 30 mg SQ BID (WT < 150 kg, CrCl > 30 mL/min) AND *Sequential Compression Device (SCD) Assessment and Plan Assessment and Plan 77 years old female admitted with Change of mental status Status post fall Suspect sepsis due to UTI: Tachycardia 116, leukocytosis 17.6 with left shift, lactic acidosis 2.7 UTI Large posterior fossa fluid collection. Differential diagnosis includes Dandy- Walker variant or an arachnoid cyst>> consider neurology consult Nondisplaced subcapital left femoral neck fracture with associated 6 cm posterior proximal thigh hematoma DVT prophylaxis Plan: Admit for inpatient Gentle hydration with normal saline at 48 cc/h Pain management with morphine, antiemetics Check ammonia level Rocephin for UTI Repeat BMP and lactic acid in a.m. Consult orbital for possible surgical repair in a.m. Patient has a history heart disease we may need cardiac clearance, I will check 2D echo Heparin for DVT prophylaxis, CT of the head personally reviewed by me no hemorrhage Discussed Condition With Patient in ED physician Physician Certification 2 Midnight Certification Type: Admission for Inpatient Services Order for Inpatient Services The services are ordered in accordance with Medicare regulations or non- Medicare payer requirements, as applicable. In the case of services not specified as inpatient-only, they are appropriately provided as inpatient services in accordance with the 2-midnight benchmark. Estimated LOS (days): 2 days is the estimated time the patient will need to remain in the hospital, assuming treatment plan goals are met and no additional complications. Post-Hospital Plan: Not yet determined Deondre Abel MD Jan 20, 2018 17:18
[2018-01-20 20:20] VITALS: BP 155/67; PULSE 89; RESP 18; TEMP 98.7; O2SAT 94
[2018-01-20] MEDS: ATORVASTATIN 40 MG TAB PO SCH (21:55)
[2018-01-20] MEDS: METOPROLOL TARTRATE 50 MG TAB PO SCH (21:55)
[2018-01-20] MEDS: DOCUSATE SODIUM 50 MG/SENNA 8.6 MG TAB PO SCH (21:56)
[2018-01-20 23:50] VITALS: BP 139/68; PULSE 75; RESP 17; TEMP 98.9; O2SAT 95
[2018-01-20 23:57] VITALS: PULSE 75
[2018-01-21] VITALS (9 sets, daily range): BP systolic 107–118; BP diastolic 50–59; PULSE 62–84; RESP 16–18; TEMP 96.2–98.8; O2SAT 92–100
[2018-01-21] MEDS ORDERED: SODIUM CHLORIDE 0.9% 20 ML VIAL ONE (03:36)
[2018-01-21] MEDS ORDERED: GENTAMICIN SULFATE 80 MG/2 ML VIAL ONE ×2 (03:36→03:42)
[2018-01-21] MEDS ORDERED: ceFAZolin INJ 1,000 MG VIAL ONE (03:36)
[2018-01-21] MEDS ORDERED: POVIDONE IODINE 5% (ANTISEPSIS KIT) 4 APPLICATIONS EACH NARE PRN (04:45)
[2018-01-21] MEDS ORDERED: LACTATED RINGER'S 1000 ML IV PRN (04:45)
[2018-01-21] MEDS ORDERED: SODIUM CHLORID 0.9% 500 ML IV PRN (04:45)
[2018-01-21] MEDS ORDERED: CHLORHEXIDINE GLUCONATE 2 % 1 PACK (2 CLOTHS) TOPICAL PRN (04:45)
[2018-01-21] MEDS: METOPROLOL TARTRATE 50 MG TAB PO SCH ×3 (05:13→21:04)
[2018-01-21] MEDS ORDERED: fentaNYL CITRATE 250 MCG/5 ML AMP ONE (05:30)
[2018-01-21] MEDS ORDERED: VANCOMYCIN HCL 1000 MG VIAL ONE (05:57)
--- NOTE | 2018-01-21 06:52 | RADRPT ---
EXAM DATE/TIME: 01/21/2018 06:33 [facility] COMPARISON: HIP LEFT (AP&LAT 2/3VWS) W AP PELVIS, January 20, 2018, 11:18. INDICATIONS : ORIF lt hip. MEDICAL HISTORY : None. SURGICAL HISTORY : None. ENCOUNTER: Subsequent ACUITY: 1 day PAIN SCORE: Non-responsive. LOCATION: Left Hip FINDINGS: A two view examination of the left hip was performed. Impacted subcapital fracture has been secured w ith 3 osseous screws. Fracture fragments are in excellent anatomic alignment. CONCLUSION: Successful open reduction and internal fixation of the impacted left subcapital femoral neck fra cture. Melvin Goldstein MD on January 21, 2018 at 6:49 Board Certified Radiologist. This report was verified electronically.
[2018-01-21] MEDS ORDERED: ACETAMINOPHEN/CODEINE 300 MG/30 MG TAB PO PRN (07:00)
[2018-01-21] MEDS ORDERED: ONDANSETRON HCL 4 MG/2 ML VIAL IVP PRN (07:00)
[2018-01-21] MEDS ORDERED: ALUMINUM/MAGNESIUM/SIMETH 30 ML CUP PO PRN (07:00)
--- NOTE | 2018-01-21 07:13 | HHI.PR ---
Immediate Post Op Note Procedure Date: Jan 21, 2018 Pre Op Diagnosis: (1) Subcapital fracture of hip Post Op Diagnosis: (1) Subcapital fracture of hip Surgeon: Wyatt Miguel M.D. Music Theory Teacher(s): Tara Kulkarni PA-C Procedure: Left hip femoral neck fx ORIF using multiple cancellous screws Complications: none Estimated blood loss: 150 cc Anesthesia: General Drains: Hemovac Patient to: PACU Patient Condition: Good Implant/Devices: SEE IMPLANT LOG (if applicable) Date/Time of Procedure: SEE SURGICAL CARE RECORD Wyatt Miguel MD Jan 21, 2018 07:13
[2018-01-21] MEDS ORDERED: DO NOT ADM ANY ANTICOAGULANT DRUGS PRN (07:30)
--- NOTE | 2018-01-21 07:36 | MP ---
cc: Wyatt Miguel MD,Binh Hickey,Stevie Avila,Sheng MEEKS DATE OF OPERATION: 01/21/2018 DATE OF OPERATION: 01/21/2018 PREOPERATIVE DIAGNOSES: Left hip Garden 2 femoral neck fracture. POSTOPERATIVE DIAGNOSIS: Left hip Garden 2 femoral neck fracture. PROCEDURE PERFORMED: Left hip femoral neck fracture open treatment and internal fixation using multiple 6.5 mm cancellous. SURGEON: Mary Ellen Miguel MD TIP FIXER: Tara Kulkarni PA-C. ANESTHESIA: General. ESTIMATED BLOOD LOSS: 150 mL DRAINS: One. SPECIMENS: None. COMPLICATIONS: None. PROCEDURE: The patient was brought into the operating room, had satisfactory general anesthesia by Dr. Zayas of the Department of Anesthesia. The patient was placed on the fracture table. All pressure points were well-padded. The left hip and lower extremity was prepped and draped in the usual sterile manner. A midline incision made over the lateral border of the hip. The patient was found to have a moderately large hematoma formation involving the buttocks area. This was evacuated using suction and pickups. The fascia maria e was incised on the left side longitudinally. Under fluoroscopic guidance, three 6.5 mm cancellous screws from [employer] was used for internal fixation. Each of the screws were drilled, measured, tapped, and appropriate length screws were inserted. This was done under fluoroscopic guidance in AP and lateral plane. The wound was irrigated with copious amounts of sterile saline antibiotic solution. The wound itself was dry. The wound was closed over a Hemovac drain which was actually placed in the area of the hematoma formation. The vastus lateralis was repaired using #2 Tycron suture. The fascia maria e repaired using #2 Tycron suture, subcutaneous layers with 0 Vicryl and 2-0 Vicryl, skin was approximated with running subcuticular 2-0 nylon. Sterile dressings were applied. The patient tolerated the procedure well and arrived in the recovery room in stable and satisfactory condition. Wyatt Miguel MD AWG/DL , 07:05 AM , 07:34 AM
[2018-01-21] MEDS: LACTATED RINGER'S 1000 ML INJ 1,000 ML IV SCH ×2 (08:00→21:03)
[2018-01-21] MEDS ORDERED: Post-op Orders (for Pharmacy) XX ONE (08:00)
[2018-01-21] MEDS: DOCUSATE SODIUM 50 MG/SENNA 8.6 MG TAB PO SCH ×2 (09:00→21:04)
--- NOTE | 2018-01-21 11:16 | HHI.PR ---
Subjective Remarks pt confused , not oriented to place or time she think "she is at work " Objective Vitals Vital Signs Date Time Temp Pulse Resp B/P (MAP) Pulse Ox O2 Delivery O2 Flow Rate FiO2 01/21/18 10:36 99 Nasal Cannula 2.00 01/21/18 09:20 96.2 67 16 107/59 (75) 99 01/21/18 08:45 62 16 114/53 (73) 99 Nasal Cannula 2 01/21/18 08:30 64 16 122/60 (80) 99 Nasal Cannula 2 01/21/18 08:15 66 16 123/59 (80) 99 Nasal Cannula 2 01/21/18 08:00 64 16 120/60 (80) 99 Nasal Cannula 2 01/21/18 07:45 68 16 128/55 (79) 97 Nasal Cannula 2 01/21/18 07:30 98.1 68 16 121/77 (92) 99 Nasal Cannula 2 01/21/18 04:39 98.8 77 18 109/50 (69) 92 01/20/18 23:57 75 01/20/18 23:50 98.9 75 17 139/68 (91) 95 01/20/18 20:20 98.7 89 18 155/67 (96) 94 01/20/18 17:31 01/20/18 17:00 98.6 95 18 127/59 (81) 93 01/20/18 13:59 104 20 141/70 (93) 99 Room Air I/O 01/20/18 01/20/18 01/20/18 01/21/18 01/21/18 01/21/18 07:00 15:00 23:00 07:00 15:00 23:00 Intake Total 0 ml 750 ml Output Total 350 ml 350 ml Balance -350 ml 0 ml 400 ml Intake Oral 0 ml IV Total 250 ml Other 500 ml Output Urine Total 350 ml 200 ml Estimated Blood Loss 150 ml # Voids 2 # Bowel Movements 0 Result Diagram: 01/20/18 1020 01/20/18 1020 Objective Remarks GENERAL: This is a frail pt who is confused CARDIOVASCULAR: Regular rate and rhythm without murmurs, gallops, or rubs. RESPIRATORY: Clear to auscultation. Breath sounds equal bilaterally. No wheezes , rales, or rhonchi. GASTROINTESTINAL: Abdomen soft, non-tender, nondistended. Normal active bowel sounds MUSCULOSKELETAL: Extremities without clubbing, cyanosis, or edema. NEURO: confused. awake alert A/P Assessment and Plan 77 years old female admitted with Change of mental status Status post fall Suspect sepsis due to UTI: Tachycardia 116, leukocytosis 17.6 with left shift, lactic acidosis 2.7 UTI Large posterior fossa fluid collection. Differential diagnosis includes Dandy- Walker variant or an arachnoid cyst>> consider neurology consult Nondisplaced subcapital left femoral neck fracture with associated 6 cm posterior proximal thigh hematoma DVT prophylaxis Plan: s/p sx , pt still confused , not improving despite hydration and abx , i will consult neuro in light of the fluid collection in the occipital fossa Gentle hydration with normal saline at 48 cc/h Pain management with morphine, antiemetics Check ammonia level Rocephin for UTI Repeat BMP and lactic acid in a.m. Consult orbital for possible surgical repair in a.m. Patient has a history heart disease we may need cardiac clearance, I will check 2D echo Heparin for DVT prophylaxis, CT of the head personally reviewed by me no hemorrhage Deondre Abel MD Jan 21, 2018 11:16
[2018-01-21] MEDS ORDERED: GLYCOPYRROLATE 1 MG/5 ML SYRINGE IV PUSH ONE (12:00)
[2018-01-21] MEDS ORDERED: NEOSTIGMINE 5 MG/5 ML SYRINGE IV PUSH ONE (12:00)
[2018-01-21] MEDS ORDERED: ROCURONIUM INJ 50 MG/5 ML SYRINGE IV PUSH ONE (12:00)
[2018-01-21] MEDS ORDERED: LIDOCAINE HCL 1% PF 5 ML SYRINGE OTHER ONE (12:00)
[2018-01-21] MEDS ORDERED: PROPOFOL 200 MG/20 ML AMP IV ONE (12:00)
[2018-01-21] MEDS ORDERED: ePHEDrine/NS 25 MG/5 ML SYRINGE IV ONE (12:00)
[2018-01-21] MEDS ORDERED: PHENYLEPH/NS 1000 MCG/10 ML SYR IV ONE (12:00)
[2018-01-21] MEDS: PARoxetine HCL 20 MG TAB PO SCH (13:08)
[2018-01-21] MEDS: hydrALAZINE HCL 25 MG TAB PO SCH ×3 (13:08→21:04)
[2018-01-21] MEDS: HEPARIN SODIUM - SQ 10,000 UNITS/ML VIAL SQ SCH (13:08)
[2018-01-21] MEDS: cefTRIAXone INJ 1,000 MG in SODIUM CHLORIDE 0.9% INJ 100 ML IV SCH (13:09)
[2018-01-21 13:19] LABS: AUTOMATED NEUTROPHIL # 9.6 TH/MM3 (1.8-7.7); BASOPHIL % 0.4 % (0.0-2.0); EOSINOPHIL # 0.2 TH/MM3 (0-0.4); EOSINOPHIL % 1.7 % (0.0-4.0); HEMATOCRIT 22.2 % (35.0-46.0); HEMOGLOBIN 7.5 GM/DL (11.6-15.3); LYMPH % 7.6 % (9.0-44.0); LYMPHOCYTE # 0.9 TH/MM3 (1.0-4.8); MEAN CELL VOLUME 89.5 FL (80.0-100.0); MEAN CORPUSCULAR HEMOGLOBIN 30.2 PG (27.0-34.0); MEAN CORPUSCULAR HGB CONC 33.7 % (32.0-36.0); MEAN PLATELET VOLUME 7.3 FL (7.0-11.0); MONO % 8.5 % (0.0-8.0); NEUT % 81.8 % (16.0-70.0); PLATELET COUNT 333 TH/MM3 (150-450); RED BLOOD COUNT 2.48 MIL/MM3 (4.00-5.30); RED CELL DISTRIBUTION WIDTH 16.3 % (11.6-17.2); WHITE BLOOD COUNT 11.7 TH/MM3 (4.0-11.0)
[2018-01-21 13:46] LABS: BICARBONATE 25.2 MEQ/L (21.0-32.0); CALCIUM 8.3 MG/DL (8.5-10.1); CREATININE 0.71 MG/DL (0.50-1.00)
--- NOTE | 2018-01-21 13:51 | EKG ---
Date Performed: 01/20/2018 Time Performed: 22:08:17 PTAGE: 77 years EKG: SINUS TACHYCARDIA WITH OCCASIONAL SUPRAVENTRICULAR PREMATURE COMPLEXES NONSPECIFIC ST & T-W AVE ABNORMALITY ABNORMAL RHYTHM ECG PREVIOUS TRACING : 01/20/2018 10.08 Rate has slowed somewhat. Anterolateral ST depression is st ill noted. Clinical correlation recommended. DOCTOR: Mehran Otoole Interpretating Date/Time 01/21/2018 13:49:42
--- NOTE | 2018-01-21 13:51 | EKG ---
Date Performed: 01/20/2018 Time Performed: 10:08:16 PTAGE: 77 years EKG: SINUS TACHYCARDIA WITH OCCASIONAL SUPRAVENTRICULAR PREMATURE COMPLEXES NONSPECIFIC ST & T-W AVE ABNORMALITY ABNORMAL RHYTHM ECG PREVIOUS TRACING : 07/05/2017 13.08 Rate has increased since prior tracing and ST-T wave change s are more prominent, cannot rule out ischemia. Clinical correlation is recommended. DOCTOR: Mehran Otoole Interpretating Date/Time 01/21/2018 13:49:02
--- NOTE | 2018-01-21 13:53 | PD.CONS ---
History of Present Illness Service Neurology Consult Requested By medical Reason for Consult falls Primary Care Physician Avi Rogers M.D. History of Present Illness 77-year-old female after she fell at night she states and found to have left hip fracture. she is not sure why she feel, if she tripped or not. she is on OAC for recurrent stroke prevention, hx of afib. she underwent left femur neck fx internal fixation surgery and is doing well from it. she states she lives alone and has sons that live closeby. denies any mendoza, neck pain, le neuropathy. 07/2017 mri brain tiny stroke Review of Systems ROS Limitations: 12 point negative rest as above Past Family Social History Past Medical History CAD Hyperlipidemia GERD Hypertension Arthritis Anxiety Cataract Partial right knee replacement Hysterectomy stroke afib Past Surgical History As above Allergies: Coded Allergies: metronidazole (Verified Allergy, Unknown, HIVES, 07/07/17) Family History Father had prostate cancer Social History Denied tobacco alcohol or illicit drug abuse Review of Systems All other ROS: ROS reviewed as documented in chart Past Family Social History Allergies: Coded Allergies: metronidazole (Verified Allergy, Unknown, HIVES, 07/07/17) Active Ordered Medications Current Medications Medications (Trade) Dose Ordered Sig/Peyman Route Start Time Stop Time Status Last Admin (NS Flush) 2 ml UNSCH PRN IV FLUSH 01/20/18 10:30 01/20/18 21:55 Sodium Chloride 1,000 ml @ 48 mls/hr [id number] IV 01/20/18 12:37 01/20/18 13:49 (Tylenol) 650 mg Q4H PRN PO 01/20/18 12:45 01/20/18 14:49 (Heparin Inj) 5,000 units Q8HR SQ 01/20/18 14:00 01/21/18 13:08 (Morphine Inj) 4 mg Q3H PRN IV PUSH 01/20/18 12:45 (Narcan Inj) 0.4 mg UNSCH PRN IV PUSH 01/20/18 12:45 (Aniat-Colace) 1 tab BID PO 01/20/18 21:00 01/20/18 21:56 (Milk Of Magnesia Liq) 30 ml Q12H PRN PO 01/20/18 12:45 (Senokot) 17.2 mg Q12H PRN PO 01/20/18 12:45 Ceftriaxone Sodium 1000 mg/ Sodium Chloride 100 ml @ 200 mls/hr Q24H IV 01/20/18 14:00 01/21/18 13:09 (Lipitor) 40 mg HS PO 01/20/18 21:00 01/20/18 21:55 (Apresoline) 25 mg Q8HR PO 01/20/18 14:00 01/21/18 13:08 (Lopressor) 50 mg Q12HR PO 01/20/18 21:00 01/21/18 05:13 (Paxil) 20 mg DAILY PO 01/21/18 09:00 01/21/18 13:08 Lactated Ringer's 1,000 ml @ 30 mls/hr Q24H PRN IV 01/21/18 04:45 01/24/18 04:44 Sodium Chloride 500 ml @ 30 mls/hr [id number] PRN IV 01/21/18 04:45 01/24/18 04:44 (Betadine 5% Antisepsis Kit) 1 applic LIGHTING DESIGNER PRN EACH NARE 01/21/18 04:45 01/24/18 04:44 (Chlorhexidine 2% Cloth) 3 pack LIGHTING DESIGNER PRN TOPICAL 01/21/18 04:45 01/24/18 04:44 Lactated Ringer's 1,000 ml @ 80 mls/hr [id number] IV 01/21/18 07:30 01/21/18 08:00 Cefazolin Sodium 1000 mg/Sodium Chloride 100 ml @ 200 mls/hr Q6H IV 01/21/18 07:00 01/21/18 19:29 UNV (Zofran Inj) 4 mg Q6H PRN IVP 01/21/18 07:00 (Mag-Al Plus Susp Liq) 30 ml Q6H PRN PO 01/21/18 07:00 (Tylenol-Codeine #3) 1 tab Q6H PRN PO 01/21/18 07:00 (Tylenol-Codeine #3) 2 tab Q6H PRN PO 01/21/18 07:00 (Xarelto) 15 mg DAILY PO 01/22/18 09:00 Miscellaneous Information ALL NURSING DEPARTME... UNSCH PRN .XX 01/21/18 07:30 01/22/18 07:29 Exam I&O / VS 01/21/18 01/21/18 01/22/18 15:00 23:00 07:00 Intake Total 750 ml Output Total 350 ml Balance 400 ml IV Total 250 ml Other 500 ml Output Urine Total 200 ml Estimated Blood Loss 150 ml Vital Signs Date Time Temp Pulse Resp B/P (MAP) Pulse Ox O2 Delivery O2 Flow Rate FiO2 01/21/18 12:10 96.6 69 18 110/57 (74) 100 01/21/18 10:36 99 Nasal Cannula 2.00 01/21/18 09:20 96.2 67 16 107/59 (75) 99 01/21/18 08:45 62 16 114/53 (73) 99 Nasal Cannula 2 01/21/18 08:30 64 16 122/60 (80) 99 Nasal Cannula 2 01/21/18 08:15 66 16 123/59 (80) 99 Nasal Cannula 2 01/21/18 08:00 64 16 120/60 (80) 99 Nasal Cannula 2 01/21/18 07:45 68 16 128/55 (79) 97 Nasal Cannula 2 01/21/18 07:30 98.1 68 16 121/77 (92) 99 Nasal Cannula 2 01/21/18 04:39 98.8 77 18 109/50 (69) 92 01/20/18 23:57 75 01/20/18 23:50 98.9 75 17 139/68 (91) 95 01/20/18 20:20 98.7 89 18 155/67 (96) 94 01/20/18 17:31 01/20/18 17:00 98.6 95 18 127/59 (81) 93 01/20/18 13:59 104 20 141/70 (93) 99 Room Air General: Alert and Oriented, No acute distress Eye: EOMI Respiratory: Non-labored respirations Neurologic: Alert, Oriented Psychiatric: Cooperative Exam Comments alert, ox 2, not to date, calm, pleasant, follows, eomi, face sym, crum to gravity except left le prox 2/2 pain, recent surgery, distal foot 5/5 shantel, pin withdraws all 4 ext Review/Management Diagnosis/Plan: (1) Fall ICD Codes: W19.XXXA - Unspecified fall, initial encounter Status: Acute Plan: ct brain findings- chronic, seen on previous scan over past few years. 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 no clinical relevance to her falls fall likely multifactorial 06/2017 tx'd with tpa for acute infarct. 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
[2018-01-21] MEDS: CYANOCOBALAMIN 1000 MCG/ML VIAL IM SCH (17:14)
[2018-01-21] MEDS: ACETAMINOPHEN/CODEINE 300 MG/30 MG TAB PO PRN (18:35)
[2018-01-21] MEDS: ATORVASTATIN 40 MG TAB PO SCH (21:04)
[2018-01-22] VITALS (9 sets, daily range): BP systolic 104–143; BP diastolic 54–64; PULSE 73–80; RESP 16–19; TEMP 98.3–99.7; O2SAT 93–100
[2018-01-22] MEDS: ACETAMINOPHEN/CODEINE 300 MG/30 MG TAB PO PRN ×3 (00:15→15:57)
[2018-01-22] MEDS: hydrALAZINE HCL 25 MG TAB PO SCH ×3 (06:00→20:22)
[2018-01-22 07:40] LABS: HEMATOCRIT 18.2 % (35.0-46.0); HEMOGLOBIN 6.2 GM/DL (11.6-15.3)
[2018-01-22] MEDS: DOCUSATE SODIUM 50 MG/SENNA 8.6 MG TAB PO SCH ×2 (08:55→20:21)
[2018-01-22] MEDS: METOPROLOL TARTRATE 50 MG TAB PO SCH ×2 (08:55→20:22)
[2018-01-22] MEDS: CYANOCOBALAMIN 1000 MCG/ML VIAL IM SCH (08:56)
[2018-01-22] MEDS: PARoxetine HCL 20 MG TAB PO SCH (08:56)
[2018-01-22] MEDS ORDERED: RIVAROXABAN 15 MG TAB PO SCH (09:00)
--- NOTE | 2018-01-22 09:28 | PD.ORT.PN ---
Subjective Subjective Remarks Appears stable. Mild to moderate left hip pain. Hemoglobin 6.2 Objective Vitals Vital Signs Date Time Temp Pulse Resp B/P (MAP) Pulse Ox O2 Delivery O2 Flow Rate FiO2 01/22/18 08:00 98.6 80 17 116/55 (75) 99 01/22/18 05:54 95 01/22/18 04:52 98.3 74 17 104/54 (71) 95 01/21/18 23:54 84 01/21/18 23:10 97.2 71 18 111/58 (75) 95 01/21/18 19:47 69 01/21/18 19:10 97.7 62 17 118/57 (77) 96 01/21/18 16:32 98.2 74 18 112/58 (76) 100 01/21/18 12:10 96.6 69 18 110/57 (74) 100 01/21/18 10:36 99 Nasal Cannula 2.00 I/O 01/21/18 01/21/18 01/21/18 01/22/18 01/22/18 01/22/18 07:00 15:00 23:00 07:00 15:00 23:00 Intake Total 0 ml 1710 ml 720 ml 360 ml Output Total 625 ml 350 ml 400 ml Balance 0 ml 1085 ml 370 ml -40 ml Intake Oral 0 ml 960 ml 720 ml 360 ml IV Total 250 ml Other 500 ml Output Urine Total 475 ml 350 ml 400 ml Estimated Blood Loss 150 ml # Voids 2 2 # Bowel Movements 0 0 0 Result Diagram: 01/22/18 0650 01/21/18 1250 Objective Remarks Moderate left hip ecchymosis. Dressing dry. No abnormal distal swelling. No calf tenderness. Motor examination normal Assessment & Plan Assessment and Plan Left hip subcapital femoral neck fracture. Surgery: ORIF left hip, multiple screws: POD #1. PLAN: 50% weightbearing. Transfusions one unit PRBC. Decrease Xarelto to 10 mg daily. Was on 15 mg before surgery. Ready for discharge. Daily dressing change with alcohol. Small area above incision treated with Xeroform and dry dressing. [facility] tomorrow Adria Miguel MD Jan 22, 2018 09:28
[2018-01-22] MEDS ORDERED: XARE10TA PO (09:31)
[2018-01-22] MEDS ORDERED: WALKER WHEELS/F1 MIS (09:42)
--- NOTE | 2018-01-22 11:11 | HHI.PR ---
Review/Management Diagnosis/Plan: (1) Fall ICD Codes: W19.XXXA - Unspecified fall, initial encounter Status: Acute Plan: ct brain findings- chronic, seen on previous scan over past few years. 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 no clinical relevance to her falls fall likely multifactorial 06/2017 tx'd with tpa for acute infarct. 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 tsh nml recs will supplement b12 no driving supervision at home f/u with us outpatient for further cognitive testing (3) Closed left hip fracture ICD Codes: S72.002A - Fracture of unspecified part of neck of left femur, initial encounter for closed fracture Status: Acute (4) Hypertension ICD Codes: I10 - Essential (primary) hypertension Subjective Subjective Comments No acute events reported c/o of left hip pain No headache No chest pain No dyspnea Active Medications Current Medications Medications (Trade) Dose Ordered Sig/Peyman Route Start Time Stop Time Status Last Admin (NS Flush) 2 ml UNSCH PRN IV FLUSH 01/20/18 10:30 01/20/18 21:55 (Tylenol) 650 mg Q4H PRN PO 01/20/18 12:45 01/20/18 14:49 (Morphine Inj) 4 mg Q3H PRN IV PUSH 01/20/18 12:45 (Narcan Inj) 0.4 mg UNSCH PRN IV PUSH 01/20/18 12:45 (Anita-Colace) 1 tab BID PO 01/20/18 21:00 01/22/18 08:55 (Milk Of Magnesia Liq) 30 ml Q12H PRN PO 01/20/18 12:45 (Senokot) 17.2 mg Q12H PRN PO 01/20/18 12:45 Ceftriaxone Sodium 1000 mg/ Sodium Chloride 100 ml @ 200 mls/hr Q24H IV 01/20/18 14:00 01/21/18 13:09 (Lipitor) 40 mg HS PO 01/20/18 21:00 01/21/18 21:04 (Apresoline) 25 mg Q8HR PO 01/20/18 14:00 01/22/18 08:55 (Lopressor) 50 mg Q12HR PO 01/20/18 21:00 01/22/18 08:55 (Paxil) 20 mg DAILY PO 01/21/18 09:00 01/22/18 08:56 (Betadine 5% Antisepsis Kit) 1 applic ELECTRIC LOCOMOTIVE FIRER/FIREMAN PRN EACH NARE 01/21/18 04:45 01/24/18 04:44 (Chlorhexidine 2% Cloth) 3 pack ELECTRIC LOCOMOTIVE FIRER/FIREMAN PRN TOPICAL 01/21/18 04:45 01/24/18 04:44 Lactated Ringer's 1,000 ml @ 80 mls/hr [id number] IV 01/21/18 07:30 01/21/18 21:03 (Zofran Inj) 4 mg Q6H PRN IVP 01/21/18 07:00 (Mag-Al Plus Susp Liq) 30 ml Q6H PRN PO 01/21/18 07:00 (Tylenol-Codeine #3) 1 tab Q6H PRN PO 01/21/18 07:00 01/22/18 08:56 (Tylenol-Codeine #3) 2 tab Q6H PRN PO 01/21/18 07:00 (Vitamin B12 Inj) 1,000 mcg DAILY IM 01/21/18 17:00 01/27/18 09:01 01/22/18 08:56 (Vitamin B12 Inj) 1,000 mcg Q7D IM 02/03/18 09:00 02/24/18 09:01 (Vitamin B12 Inj) 1,000 mcg Q30D IM 03/26/18 09:00 (Xarelto) 10 mg DAILY PO 01/23/18 09:00 Allergies Allergies Coded Allergies metronidazole (Verified Allergy, Unknown, HIVES, 07/07/17) Review of Systems All other ROS: ROS reviewed as documented in chart Exam I&O / VS Vital Signs Date Time Temp Pulse Resp B/P (MAP) Pulse Ox O2 Delivery O2 Flow Rate FiO2 01/22/18 08:00 98.6 80 17 116/55 (75) 99 01/22/18 05:54 95 01/22/18 04:52 98.3 74 17 104/54 (71) 95 01/21/18 23:54 84 01/21/18 23:10 97.2 71 18 111/58 (75) 95 01/21/18 19:47 69 01/21/18 19:10 97.7 62 17 118/57 (77) 96 01/21/18 16:32 98.2 74 18 112/58 (76) 100 01/21/18 12:10 96.6 69 18 110/57 (74) 100 General: Alert and Oriented, No acute distress Eye: EOMI Respiratory: Non-labored respirations Neurologic: Alert, Oriented Psychiatric: Cooperative Exam Comments alert, ox 2, not to date, calm, pleasant, follows, eomi, face sym, crum to gravity except left le prox 2/2 pain, recent surgery, distal foot 5/5 shantel, pin withdraws all 4 ext Objective Micro and Labs Laboratory Tests Test 01/21/18 12:50 01/22/18 06:50 White Blood Count 11.7 Red Blood Count 2.48 Hemoglobin 7.5 6.2 Hematocrit 22.2 18.2 Mean Corpuscular Volume 89.5 Mean Corpuscular Hemoglobin 30.2 Mean Corpuscular Hemoglobin Concent 33.7 Red Cell Distribution Width 16.3 Platelet Count 333 Mean Platelet Volume 7.3 Neutrophils (%) (Auto) 81.8 Lymphocytes (%) (Auto) 7.6 Monocytes (%) (Auto) 8.5 Eosinophils (%) (Auto) 1.7 Basophils (%) (Auto) 0.4 Neutrophils # (Auto) 9.6 Lymphocytes # (Auto) 0.9 Monocytes # (Auto) 1.0 Eosinophils # (Auto) 0.2 Basophils # (Auto) 0.0 CBC Comment DIFF FINAL Differential Comment Blood Urea Nitrogen 16 Creatinine 0.71 Random Glucose 132 Calcium Level 8.3 Sodium Level 137 Potassium Level 3.9 Chloride Level 104 Carbon Dioxide Level 25.2 Anion Gap 8 Estimat Glomerular Filtration Rate 79 Vitamin B12 Level 255 Date/Time Source Procedure Growth Status 01/20/18 10:30 Blood Peripheral Aerobic Blood Culture - Preliminary NO GROWTH IN 2 DAYS Resulted 01/20/18 10:30 Blood Peripheral Anaerobic Blood Culture - Preliminary NO GROWTH IN 2 DAYS Resulted 01/20/18 10:45 Urine Catheterized Urine Urine Culture - Final Klebsiella Pneumoniae Viridans Streptococcus Grp Complete Problem Qualifiers (1) Fall: Qualified Codes: W19.XXXA - Unspecified fall, initial encounter Sheng Avila MD Jan 22, 2018 11:11
[2018-01-22] MEDS: cefTRIAXone INJ 1,000 MG in SODIUM CHLORIDE 0.9% INJ 100 ML IV SCH (11:59)
--- NOTE | 2018-01-22 15:29 | HHI.PR ---
Subjective Remarks F/U anemia. Denies dizziness. Still awaiting transfusion dw RN Objective Vitals Vital Signs Date Time Temp Pulse Resp B/P (MAP) Pulse Ox O2 Delivery O2 Flow Rate FiO2 01/22/18 12:00 98.5 75 17 109/55 (73) 100 01/22/18 08:00 98.6 80 17 116/55 (75) 99 01/22/18 05:54 95 01/22/18 04:52 98.3 74 17 104/54 (71) 95 01/21/18 23:54 84 01/21/18 23:10 97.2 71 18 111/58 (75) 95 01/21/18 19:47 69 01/21/18 19:10 97.7 62 17 118/57 (77) 96 01/21/18 16:32 98.2 74 18 112/58 (76) 100 I/O 01/21/18 01/21/18 01/21/18 01/22/18 01/22/18 01/22/18 07:00 15:00 23:00 07:00 15:00 23:00 Intake Total 0 ml 1710 ml 720 ml 360 ml Output Total 625 ml 350 ml 400 ml Balance 0 ml 1085 ml 370 ml -40 ml Intake Oral 0 ml 960 ml 720 ml 360 ml IV Total 250 ml Other 500 ml Output Urine Total 475 ml 350 ml 400 ml Estimated Blood Loss 150 ml # Voids 2 2 # Bowel Movements 0 0 0 Result Diagram: 01/22/18 0650 01/21/18 1250 Imaging Last Impressions Hip X-Ray 01/21/18 0000 Signed Impressions: Service Date/Time: Sunday, January 21, 2018 06:33 - CONCLUSION: Successful open reduction and internal fixation of the impacted left subcapital femoral neck fracture. Melvin Goldstein MD Hip and Pelvis X-Ray 01/20/18 1017 Signed Impressions: Service Date/Time: January 11:18 - CONCLUSION: 1. Questionable nondisplaced, impacted femoral neck fracture on the left. CT imaging of the left hip is warranted for further assessment. Caio Adame MD Head CT 01/20/18 1017 Signed Impressions: Service Date/Time: January 10:58 - CONCLUSION: 1. No acute findings. Large posterior fossa fluid collection. Differential diagnosis includes Dandy-Walker variant or an arachnoid cyst. Finding is stable. Olvin Palomo MD Chest X-Ray 01/20/18 1017 Signed Impressions: Service Date/Time: January 11:18 - CONCLUSION: 1. COPD changes. No acute abnormality. Caio Adame MD Lower Extremity CT 01/20/18 0000 Signed Impressions: Service Date/Time: January 12:51 - CONCLUSION: 1. Subtle nondisplaced subcapital left femoral neck fracture with associated 6 cm posterior proximal thigh hematoma. Eliezer Rivas MD Objective Remarks GENERAL: This is a frail WD WN pt CARDIOVASCULAR: Regular rate and rhythm without murmurs, gallops, or rubs. RESPIRATORY: Clear to auscultation. Breath sounds equal bilaterally. No wheezes , rales, or rhonchi. GASTROINTESTINAL: Abdomen soft, non-tender, nondistended. Normal active bowel sounds MUSCULOSKELETAL: Extremities without clubbing, cyanosis, or edema. NEURO: Awake alert. Oriented to person, place and situation Procedures ORIF left femoral fx A/P Problem List: (1) Closed left hip fracture ICD Code: S72.002A - Fracture of unspecified part of neck of left femur, initial encounter for closed fracture Status: Acute Assessment and Plan 77 years old female admitted with Encephalopathy 2/2 infection. Improving. Could be early dementia/MCI. Pending TSH, RPR, thiamine and B6 Large posterior fossa fluid collection. Differential diagnosis includes Dandy- Walker variant or an arachnoid cyst per neurology not related to falls Status post fall. PT fall precautions Klebsiella and viridans UTI. Stable ct Rocephin. Bcx NGTD Nondisplaced subcapital left femoral neck fracture with associated 6 cm posterior proximal thigh hematoma s/p repair. Stable ct postop care with wd care , PT, pain mgt Mild ast elevation on statin. Could also be from rhabdo. Monitor Anemia 2/2 acute blood loss. Being transfused. Rpt counts in am. Guaiac x 3 DVT prophylaxis with xarelto Discharge Planning SNF when arranged pending rpt H/H after PRBC Carlos Croft MD Jan 22, 2018 15:29
[2018-01-22] MEDS ORDERED: CIPR250T52 PO (15:36)
[2018-01-22] MEDS ORDERED: ACET1TAB94 PO (15:36)
[2018-01-22] MEDS ORDERED: CYAN1000P IM (15:36)
[2018-01-22] MEDS: LACTATED RINGER'S 1000 ML INJ 1,000 ML IV SCH (19:13)
[2018-01-22] MEDS: ATORVASTATIN 40 MG TAB PO SCH (20:22)
[2018-01-23] VITALS (8 sets, daily range): BP systolic 114–145; BP diastolic 51–75; PULSE 65–90; RESP 16–20; TEMP 96.8–99.5; O2SAT 95–99
[2018-01-23] MEDS ORDERED: BISACODYL 10 MG SUPP RECTAL PRN (00:45)
[2018-01-23] MEDS: hydrALAZINE HCL 25 MG TAB PO SCH ×3 (05:38→21:00)
[2018-01-23] MEDS: ACETAMINOPHEN/CODEINE 300 MG/30 MG TAB PO PRN (05:38)
[2018-01-23] MEDS: PARoxetine HCL 20 MG TAB PO SCH (07:26)
[2018-01-23] MEDS: METOPROLOL TARTRATE 50 MG TAB PO SCH ×2 (07:26→21:00)
[2018-01-23] MEDS: CYANOCOBALAMIN 1000 MCG/ML VIAL IM SCH (07:27)
[2018-01-23] MEDS: RIVAROXABAN 10 MG TAB PO SCH (07:27)
[2018-01-23] MEDS: DOCUSATE SODIUM 50 MG/SENNA 8.6 MG TAB PO SCH ×2 (07:27→21:00)
--- NOTE | 2018-01-23 08:42 | PD.ORT.PN ---
Subjective Subjective Remarks Appears stable. Mild left hip pain. Hemoglobin pending Objective Vitals Vital Signs Date Time Temp Pulse Resp B/P (MAP) Pulse Ox O2 Delivery O2 Flow Rate FiO2 01/23/18 04:00 99.5 80 18 126/55 (78) 95 01/23/18 04:00 72 01/23/18 01:00 97.8 80 16 145/75 95 01/22/18 23:51 77 01/22/18 21:19 99.7 73 16 121/54 96 01/22/18 21:04 98.9 76 16 135/57 93 01/22/18 20:00 99.3 76 18 143/64 (90) 98 01/22/18 20:00 77 01/22/18 16:00 98.6 76 19 126/60 (82) 98 01/22/18 12:00 98.5 75 17 109/55 (73) 100 I/O 01/22/18 01/22/18 01/22/18 01/23/18 01/23/18 01/23/18 07:00 15:00 23:00 07:00 15:00 23:00 Intake Total 360 ml 10 ml 840 ml Output Total 400 ml 500 ml 1300 ml Balance -40 ml -500 ml 10 ml -460 ml Intake Oral 360 ml 480 ml Packed Cells 350 ml Blood Product IV Normal Saline Flush 10 ml 10 ml Output Urine Total 400 ml 500 ml 1300 ml # Bowel Movements 0 0 Result Diagram: 01/22/18 0650 01/21/18 1250 Objective Remarks Moderate left hip ecchymosis. Dressing dry. No abnormal distal swelling. No calf tenderness. Motor examination normal Assessment & Plan Assessment and Plan Left hip subcapital femoral neck fracture. Surgery: ORIF left hip, multiple screws: POD #2 PLAN: 50% weightbearing. Status post 1 unit PRBC, hemoglobin pending Xarelto 10 mg daily for 1 week, then resume preop dose of 15 mg daily Ready for discharge. Daily dressing change with alcohol. Small area above incision treated with Xeroform and dry dressing. SNF today if medically clear, pending H/H Adria Miguel MD Jan 23, 2018 08:42
[2018-01-23 09:30] LABS: AUTOMATED NEUTROPHIL # 7.1 TH/MM3 (1.8-7.7); BASOPHIL # 0.1 TH/MM3 (0-0.2); BASOPHIL % 0.7 % (0.0-2.0); EOSINOPHIL # 0.2 TH/MM3 (0-0.4); EOSINOPHIL % 2.4 % (0.0-4.0); HEMATOCRIT 25.2 % (35.0-46.0); HEMOGLOBIN 8.9 GM/DL (11.6-15.3); LYMPH % 10.8 % (9.0-44.0); MEAN CELL VOLUME 87.7 FL (80.0-100.0); MEAN CORPUSCULAR HGB CONC 35.4 % (32.0-36.0); MEAN PLATELET VOLUME 7.9 FL (7.0-11.0); MONO % 9.3 % (0.0-8.0); MONOCYTE # 0.9 TH/MM3 (0-0.9); NEUT % 76.8 % (16.0-70.0); PLATELET COUNT 356 TH/MM3 (150-450); RED BLOOD COUNT 2.88 MIL/MM3 (4.00-5.30); RED CELL DISTRIBUTION WIDTH 15.7 % (11.6-17.2); WHITE BLOOD COUNT 9.2 TH/MM3 (4.0-11.0)
[2018-01-23 09:51] LABS: BICARBONATE 25.1 MEQ/L (21.0-32.0); CALCIUM 8.1 MG/DL (8.5-10.1); CREATININE 0.53 MG/DL (0.50-1.00); MAGNESIUM 1.8 MG/DL (1.5-2.5)
[2018-01-23] MEDS ORDERED: POTASSIUM CHLORIDE 20 MEQ CONTROLLED RELEASE TAB PO ONE (10:45)
[2018-01-23] MEDS ORDERED: MAGNESIUM CITRATE SOLN 300 ML BTL PO ONE (10:45)
--- NOTE | 2018-01-23 10:46 | HHI.PR ---
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 no clinical relevance to her falls fall likely multifactorial 06/2017 tx'd with tpa for acute infarct. small infarct on mri recs pain control b12 started neuro stable fall precautions outpatient balance therapy needs f/u with us (3) Closed left hip fracture ICD Codes: S72.002A - Fracture of unspecified part of neck of left femur, initial encounter for closed fracture Status: Acute (4) Hypertension ICD Codes: I10 - Essential (primary) hypertension Subjective Subjective Comments No acute events reported No headache No chest pain No dyspnea Active Medications Current Medications Medications (Trade) Dose Ordered Sig/Peyman Route Start Time Stop Time Status Last Admin (NS Flush) 2 ml UNSCH PRN IV FLUSH 01/20/18 10:30 01/20/18 21:55 (Tylenol) 650 mg Q4H PRN PO 01/20/18 12:45 01/20/18 14:49 (Morphine Inj) 4 mg Q3H PRN IV PUSH 01/20/18 12:45 01/22/18 13:00 (Narcan Inj) 0.4 mg UNSCH PRN IV PUSH 01/20/18 12:45 (Anita-Colace) 1 tab BID PO 01/20/18 21:00 01/23/18 07:27 (Milk Of Magnesia Liq) 30 ml Q12H PRN PO 01/20/18 12:45 01/22/18 12:57 (Senokot) 17.2 mg Q12H PRN PO 01/20/18 12:45 01/22/18 20:21 Ceftriaxone Sodium 1000 mg/ Sodium Chloride 100 ml @ 200 mls/hr Q24H IV 01/20/18 14:00 01/22/18 11:59 (Lipitor) 40 mg HS PO 3/15/18 21:00 01/22/18 20:22 (Apresoline) 25 mg Q8HR PO 01/20/18 14:00 01/23/18 05:38 (Lopressor) 50 mg Q12HR PO 01/20/18 21:00 01/23/18 07:26 (Paxil) 20 mg DAILY PO 01/21/18 09:00 01/23/18 07:26 (Betadine 5% Antisepsis Kit) 1 applic BOILER ERECTOR PRN EACH NARE 01/21/18 04:45 01/24/18 04:44 (Chlorhexidine 2% Cloth) 3 pack BOILER ERECTOR PRN TOPICAL 01/21/18 04:45 01/24/18 04:44 Lactated Ringer's 1,000 ml @ 80 mls/hr [id number] IV 01/21/18 07:30 01/21/18 21:03 (Zofran Inj) 4 mg Q6H PRN IVP 01/21/18 07:00 (Mag-Al Plus Susp Liq) 30 ml Q6H PRN PO 01/21/18 07:00 (Tylenol-Codeine #3) 1 tab Q6H PRN PO 01/21/18 07:00 01/23/18 05:38 (Tylenol-Codeine #3) 2 tab Q6H PRN PO 01/21/18 07:00 (Vitamin B12 Inj) 1,000 mcg DAILY IM 01/21/18 17:00 01/27/18 09:01 01/23/18 07:27 (Vitamin B12 Inj) 1,000 mcg Q7D IM 02/03/18 09:00 02/24/18 09:01 (Vitamin B12 Inj) 1,000 mcg Q30D IM 03/26/18 09:00 (Xarelto) 10 mg DAILY PO 01/23/18 09:00 01/23/18 07:27 (Dulcolax Supp) 10 mg DAILY PRN RECTAL 01/23/18 00:45 Allergies Allergies Coded Allergies metronidazole (Verified Allergy, Unknown, HIVES, 07/07/17) Review of Systems All other ROS: ROS reviewed as documented in chart Exam I&O / VS Vital Signs Date Time Temp Pulse Resp B/P (MAP) Pulse Ox O2 Delivery O2 Flow Rate FiO2 01/23/18 08:00 98.1 88 18 118/58 (78) 96 01/23/18 04:00 99.5 80 18 126/55 (78) 95 01/23/18 04:00 72 01/23/18 01:00 97.8 80 16 145/75 95 01/22/18 23:51 77 01/22/18 21:19 99.7 73 16 121/54 96 01/22/18 21:04 98.9 76 16 135/57 93 01/22/18 20:00 99.3 76 18 143/64 (90) 98 01/22/18 20:00 77 01/22/18 16:00 98.6 76 19 126/60 (82) 98 01/22/18 12:00 98.5 75 17 109/55 (73) 100 General: Alert and Oriented, No acute distress Eye: EOMI Respiratory: Non-labored respirations Neurologic: Alert, Oriented Psychiatric: Cooperative Exam Comments alert, ox 1-2, not to date, thinks she is in [place], calm, pleasant, follows, eomi, face sym, crum to gravity except left le prox 2/2 pain, recent surgery, distal foot 5/5 shantel, pin withdraws all 4 ext Objective Micro and Labs Laboratory Tests Test 01/22/18 14:45 01/23/18 08:10 01/23/18 09:10 Thyroid Stimulating Hormone 3rd Gen 2.690 White Blood Count 9.2 Red Blood Count 2.88 Hemoglobin 8.9 Hematocrit 25.2 Mean Corpuscular Volume 87.7 Mean Corpuscular Hemoglobin 31.0 Mean Corpuscular Hemoglobin Concent 35.4 Red Cell Distribution Width 15.7 Platelet Count 356 Mean Platelet Volume 7.9 Neutrophils (%) (Auto) 76.8 Lymphocytes (%) (Auto) 10.8 Monocytes (%) (Auto) 9.3 Eosinophils (%) (Auto) 2.4 Basophils (%) (Auto) 0.7 Neutrophils # (Auto) 7.1 Lymphocytes # (Auto) 1.0 Monocytes # (Auto) 0.9 Eosinophils # (Auto) 0.2 Basophils # (Auto) 0.1 CBC Comment DIFF FINAL Differential Comment Blood Urea Nitrogen 7 Creatinine 0.53 Random Glucose 99 Calcium Level 8.1 Magnesium Level 1.8 Sodium Level 136 Potassium Level 3.3 Chloride Level 102 Carbon Dioxide Level 25.1 Anion Gap 9 Estimat Glomerular Filtration Rate 111 Date/Time Source Procedure Growth Status 01/20/18 10:30 Blood Peripheral Aerobic Blood Culture - Preliminary NO GROWTH IN 2 DAYS Resulted 01/20/18 10:30 Blood Peripheral Anaerobic Blood Culture - Preliminary NO GROWTH IN 2 DAYS Resulted 01/20/18 10:45 Urine Catheterized Urine Urine Culture - Final Klebsiella Pneumoniae Viridans Streptococcus Grp Complete Problem Qualifiers (1) Fall: Qualified Codes: W19.XXXA - Unspecified fall, initial encounter Sheng Avila MD Jan 23, 2018 10:46
--- NOTE | 2018-01-23 10:48 | HHI.DCPOC ---
Discharge Care Plan Diagnosis: (1) Closed left hip fracture Your Health Problems Are: Difficulty with ADL Exercise Tolerance Goals to Promote Your Health * To prevent worsening of your condition and complications * To maintain your health at the optimal level Directions to Meet Your Goals Take your medications as prescribed Follow your dietary instruction Follow activity as directed Keep your appointments as scheduled Take your immunizations and boosters as scheduled If your symptoms worsen call your PCP, if no PCP go to Urgent Care Center or Emergency Room Smoking is Dangerous to Your Health. Avoid second hand smoke Call the 24-hour hour crisis hotline for domestic abuse at Carlos Croft MD Jan 23, 2018 10:48
[2018-01-23] MEDS ORDERED: CIPROFLOXACIN 250 MG TAB PO ONE (13:15)
--- NOTE | 2018-01-23 13:18 | HHI.PR ---
Subjective Remarks Lap anemia. Denies weakness or dizziness. She is oriented to person and place. Not today. States she had a bowel movement. Discussed with nursing. Objective Vitals Vital Signs Date Time Temp Pulse Resp B/P (MAP) Pulse Ox O2 Delivery O2 Flow Rate FiO2 01/23/18 12:00 97.5 66 18 114/60 (78) 99 01/23/18 08:00 98.1 88 18 118/58 (78) 96 01/23/18 04:00 99.5 80 18 126/55 (78) 95 01/23/18 04:00 72 01/23/18 01:00 97.8 80 16 145/75 95 01/22/18 23:51 77 01/22/18 21:19 99.7 73 16 121/54 96 01/22/18 21:04 98.9 76 16 135/57 93 01/22/18 20:00 99.3 76 18 143/64 (90) 98 01/22/18 20:00 77 01/22/18 16:00 98.6 76 19 126/60 (82) 98 I/O 01/22/18 01/22/18 01/22/18 01/23/18 01/23/18 01/23/18 07:00 15:00 23:00 07:00 15:00 23:00 Intake Total 360 ml 10 ml 840 ml Output Total 400 ml 500 ml 1300 ml Balance -40 ml -500 ml 10 ml -460 ml Intake Oral 360 ml 480 ml Packed Cells 350 ml Blood Product IV Normal Saline Flush 10 ml 10 ml Output Urine Total 400 ml 500 ml 1300 ml # Bowel Movements 0 0 Result Diagram: 01/23/18 0810 01/23/18 0910 Imaging Last Impressions Hip X-Ray 01/21/18 0000 Signed Impressions: Service Date/Time: Sunday, January 21, 2018 06:33 - CONCLUSION: Successful open reduction and internal fixation of the impacted left subcapital femoral neck fracture. Melvin Goldstein MD Hip and Pelvis X-Ray 01/20/18 1017 Signed Impressions: Service Date/Time: January 11:18 - CONCLUSION: 1. Questionable nondisplaced, impacted femoral neck fracture on the left. CT imaging of the left hip is warranted for further assessment. Caio Adame MD Head CT 01/20/18 1017 Signed Impressions: Service Date/Time: January 10:58 - CONCLUSION: 1. No acute findings. Large posterior fossa fluid collection. Differential diagnosis includes Dandy-Walker variant or an arachnoid cyst. Finding is stable. Olvin Palomo MD Chest X-Ray 01/20/18 1017 Signed Impressions: Service Date/Time: January 11:18 - CONCLUSION: 1. COPD changes. No acute abnormality. Caio Adame MD Lower Extremity CT 01/20/18 0000 Signed Impressions: Service Date/Time: January 12:51 - CONCLUSION: 1. Subtle nondisplaced subcapital left femoral neck fracture with associated 6 cm posterior proximal thigh hematoma. Eliezer Rivas MD Objective Remarks GENERAL: This is a frail WD WN pt CARDIOVASCULAR: Regular rate and rhythm without murmurs, gallops, or rubs. RESPIRATORY: Clear to auscultation. Breath sounds equal bilaterally. No wheezes , rales, or rhonchi. GASTROINTESTINAL: Abdomen soft, non-tender, nondistended. Normal active bowel sounds MUSCULOSKELETAL: Extremities without clubbing, cyanosis, or edema. NEURO: Awake alert. Oriented to person and place Procedures ORIF left femoral fx A/P Problem List: (1) Closed left hip fracture ICD Code: S72.002A - Fracture of unspecified part of neck of left femur, initial encounter for closed fracture Status: Acute Assessment and Plan 77 years old female admitted with Encephalopathy 2/2 infection. Improving. Could be early dementia/MCI. Pending RPR, thiamine and B6 Large posterior fossa fluid collection. Differential diagnosis includes Dandy- Walker variant or an arachnoid cyst per neurology not related to falls Status post fall. PT fall precautions Klebsiella and viridans UTI. Stable start ciprofloxacin p.o. and discontinue Rocephin. Bcx NGTD Nondisplaced subcapital left femoral neck fracture with associated 6 cm posterior proximal thigh hematoma s/p repair. Stable ct postop care with wd care , PT, pain mgt Mild ast elevation on statin. Could also be from rhabdo. Monitor Anemia 2/2 acute blood loss from surgery. Improved after transfusion. Guaiac x 3 DVT prophylaxis with xarelto Discharge Planning SNF when arranged Carlos Croft MD Jan 23, 2018 13:18
[2018-01-23] MEDS: CIPROFLOXACIN 250 MG TAB PO SCH (18:00)
[2018-01-23] MEDS: ATORVASTATIN 40 MG TAB PO SCH (21:00)
[2018-01-24] VITALS (7 sets, daily range): BP systolic 119–148; BP diastolic 50–77; PULSE 64–83; RESP 17–20; TEMP 97.3–98.1; O2SAT 96–99
[2018-01-24] MEDS: ACETAMINOPHEN/CODEINE 300 MG/30 MG TAB PO PRN (00:36)
[2018-01-24] MEDS: hydrALAZINE HCL 25 MG TAB PO SCH (06:09)
[2018-01-24] MEDS: CIPROFLOXACIN 250 MG TAB PO SCH (06:09)
--- NOTE | 2018-01-24 10:12 | HHI.PR ---
Subjective Remarks Follow-up encephalopathy. She is oriented to person and place. Does not know the date and situation. She is calm and cooperative following commands. Discussed with nursing Objective Vitals Vital Signs Date Time Temp Pulse Resp B/P (MAP) Pulse Ox O2 Delivery O2 Flow Rate FiO2 01/24/18 08:38 96 21 01/24/18 08:00 97.3 77 17 127/77 (94) 97 01/24/18 04:00 97.8 75 20 148/70 (96) 97 01/24/18 03:53 64 01/24/18 00:40 72 01/24/18 00:00 98.1 83 20 133/74 (93) 99 01/23/18 20:17 90 01/23/18 20:00 97.0 76 20 129/51 (77) 95 01/23/18 17:38 98 21 01/23/18 16:00 96.8 65 18 143/65 (91) 98 01/23/18 12:00 97.5 66 18 114/60 (78) 99 I/O 01/23/18 01/23/18 01/23/18 01/24/18 01/24/18 01/24/18 07:00 15:00 23:00 07:00 15:00 23:00 Intake Total 840 ml 320 ml Output Total 1300 ml 320 ml Balance -460 ml 0 ml Intake Oral 480 ml 320 ml Packed Cells 350 ml Blood Product IV Normal Saline Flush 10 ml Output Urine Total 1300 ml 320 ml # Voids 4 # Bowel Movements 0 2 Result Diagram: 01/23/18 0810 01/23/18 0910 Imaging Last Impressions Hip X-Ray 01/21/18 0000 Signed Impressions: Service Date/Time: Sunday, January 21, 2018 06:33 - CONCLUSION: Successful open reduction and internal fixation of the impacted left subcapital femoral neck fracture. Melvin Goldstein MD Hip and Pelvis X-Ray 01/20/18 1017 Signed Impressions: Service Date/Time: January 11:18 - CONCLUSION: 1. Questionable nondisplaced, impacted femoral neck fracture on the left. CT imaging of the left hip is warranted for further assessment. Caio Adame MD Head CT 01/20/18 1017 Signed Impressions: Service Date/Time: January 10:58 - CONCLUSION: 1. No acute findings. Large posterior fossa fluid collection. Differential diagnosis includes Dandy-Walker variant or an arachnoid cyst. Finding is stable. Olvin Palomo MD Chest X-Ray 01/20/18 1017 Signed Impressions: Service Date/Time: January 11:18 - CONCLUSION: 1. COPD changes. No acute abnormality. Caio Adame MD Lower Extremity CT 01/20/18 0000 Signed Impressions: Service Date/Time: January 12:51 - CONCLUSION: 1. Subtle nondisplaced subcapital left femoral neck fracture with associated 6 cm posterior proximal thigh hematoma. Eliezer Rivas MD Objective Remarks GENERAL: This is a frail WD WN pt CARDIOVASCULAR: Regular rate and rhythm without murmurs, gallops, or rubs. RESPIRATORY: Clear to auscultation. Breath sounds equal bilaterally. No wheezes , rales, or rhonchi. GASTROINTESTINAL: Abdomen soft, non-tender, nondistended. Normal active bowel sounds MUSCULOSKELETAL: Extremities without clubbing, cyanosis, or edema. NEURO: Awake alert. Oriented to person and place Procedures ORIF left femoral fx A/P Problem List: (1) Closed left hip fracture ICD Code: S72.002A - Fracture of unspecified part of neck of left femur, initial encounter for closed fracture Status: Acute Assessment and Plan 77 years old female admitted with Encephalopathy 2/2 infection. Improving. Could be early dementia/MCI. Pending B6 Large posterior fossa fluid collection. Differential diagnosis includes Dandy- Walker variant or an arachnoid cyst per neurology not related to falls Status post fall. PT fall precautions Klebsiella and viridans UTI. Stable continue ciprofloxacin p.o. and discontinue Rocephin. Bcx NGTD Nondisplaced subcapital left femoral neck fracture with associated 6 cm posterior proximal thigh hematoma s/p repair. Stable ct postop care with wd care , PT, pain mgt Mild ast elevation on statin. Could also be from rhabdo. Monitor Anemia 2/2 acute blood loss from surgery. Improved after transfusion. Guaiac x 3 DVT prophylaxis with xarelto Discharge Planning SNF when arranged Carlos Croft MD Jan 24, 2018 10:12
[2018-01-24] MEDS: DOCUSATE SODIUM 50 MG/SENNA 8.6 MG TAB PO SCH (11:41)
[2018-01-24] MEDS: CYANOCOBALAMIN 1000 MCG/ML VIAL IM SCH (11:41)
[2018-01-24] MEDS: METOPROLOL TARTRATE 50 MG TAB PO SCH (11:41)
[2018-01-24] MEDS: RIVAROXABAN 10 MG TAB PO SCH (11:42)
[2018-01-24] MEDS: PARoxetine HCL 20 MG TAB PO SCH (11:42)
--- NOTE | 2018-01-24 13:21 | HHI.DS ---
Discharge Summary Admission Date Jan 20, 2018 at 12:38 Discharge Date: Jan 24, 2018 Admitting Diagnosis UTI/sepsis/left hip fracture (1) Closed left hip fracture ICD Code: S72.002A - Fracture of unspecified part of neck of left femur, initial encounter for closed fracture Diagnosis: Principal Status: Acute Procedures ORIF left femoral fx Brief History - From Admission 77-year-old female was brought to the ED by her son and hit her after she sustained a fall left face, she was found to have a UTI, with tachycardia lactic acidosis and WBC of 17 K, patient is oriented to person but not to place and time, she is very poor historian, as per her son she has been irritable and not in her regular status. To me patient denied chest pain constipation dysuria urgency or frequency. She does not remember the episode of the fall or having short of breath lightheaded lightheadedness or dizziness, she has a history of bilateral meniscus tear and right knee partial replacement and she was planned ongoing for total knee replacement . Also in ED x-ray of the head showed possible left femoral neck fracture, CT of the lower extremity ordered to verify CBC/BMP: 01/23/18 0810 01/23/18 0910 Significant Findings Laboratory Tests Test 01/22/18 06:50 01/22/18 14:45 01/23/18 08:10 01/23/18 09:10 Hemoglobin 6.2 GM/DL (11.6-15.3) 8.9 GM/DL (11.6-15.3) Hematocrit 18.2 % (35.0-46.0) 25.2 % (35.0-46.0) Red Blood Count 2.88 MIL/MM3 (4.00-5.30) Neutrophils (%) (Auto) 76.8 % (16.0-70.0) Monocytes (%) (Auto) 9.3 % (0.0-8.0) Calcium Level 8.1 MG/DL (8.5-10.1) Potassium Level 3.3 MEQ/L (3.5-5.1) Imaging Last Impressions Hip X-Ray 01/21/18 0000 Signed Impressions: Service Date/Time: Sunday, January 21, 2018 06:33 - CONCLUSION: Successful open reduction and internal fixation of the impacted left subcapital femoral neck fracture. Melvin Goldstein MD Hip and Pelvis X-Ray 01/20/18 1017 Signed Impressions: Service Date/Time: January 11:18 - CONCLUSION: 1. Questionable nondisplaced, impacted femoral neck fracture on the left. CT imaging of the left hip is warranted for further assessment. Caio Adame MD Head CT 01/20/18 1017 Signed Impressions: Service Date/Time: January 10:58 - CONCLUSION: 1. No acute findings. Large posterior fossa fluid collection. Differential diagnosis includes Dandy-Walker variant or an arachnoid cyst. Finding is stable. Olvin Palomo MD Chest X-Ray 01/20/18 1017 Signed Impressions: Service Date/Time: January 11:18 - CONCLUSION: 1. COPD changes. No acute abnormality. Caio Adame MD Lower Extremity CT 01/20/18 0000 Signed Impressions: Service Date/Time: January 12:51 - CONCLUSION: 1. Subtle nondisplaced subcapital left femoral neck fracture with associated 6 cm posterior proximal thigh hematoma. Eliezer Rivas MD PE at Discharge GENERAL: This is a frail WD WN pt CARDIOVASCULAR: Regular rate and rhythm without murmurs, gallops, or rubs. RESPIRATORY: Clear to auscultation. Breath sounds equal bilaterally. No wheezes , rales, or rhonchi. GASTROINTESTINAL: Abdomen soft, non-tender, nondistended. Normal active bowel sounds MUSCULOSKELETAL: Extremities without clubbing, cyanosis, or edema. NEURO: Awake alert. Oriented to person and place Hospital Course 77 years old female admitted with Encephalopathy 2/2 infection. Improving. Could be early dementia/MCI. Pending B6. Evaluated by neurology and recommended outpatient follow-up Large posterior fossa fluid collection. Differential diagnosis includes Dandy- Walker variant or an arachnoid cyst per neurology not related to falls Status post fall. PT fall precautions Klebsiella and viridans UTI. Stable continue ciprofloxacin p.o. and discontinue Rocephin. Bcx NGTD Nondisplaced subcapital left femoral neck fracture with associated 6 cm posterior proximal thigh hematoma s/p repair. Stable ct postop care with wd care , PT, pain mgt Mild ast elevation on statin. Could also be from rhabdo. Monitor Anemia 2/2 acute blood loss from surgery. Improved after transfusion. Guaiac x 3 DVT prophylaxis with xarelto Pt Condition on Discharge: Stable Discharge Disposition: Discharge to SNF Discharge Time: > 30 minutes Discharge Instructions DIET: Follow Instructions for: As Tolerated, No Restrictions Activities you can perform: Partial Weight Bearing Follow up Referrals: Orthopedics - 1 Week PCP Follow-up - 2-3 Days New Medications: Ciprofloxacin (Cipro) 250 Mg Tab 250 MG PO BID for Infection, #8 TAB 0 Refills Walker with Front Wheels (Walker with Front Wheels) 1 Mis Mis EA .XX DIRECTED, #1 0 Refills Acetaminophen-Codeine (Acetaminophen-Codeine) 300-30 mg Tab 1 TAB PO Q6H PRN for pain, #12 TAB Cyanocobalamin Inj (Cyanocobalamin Inj) 1,000 Mcg/Ml Inj 1000 MCG IM DAILY for vit b12 deficiency, #5 INJECTION last dose 01/27 then q7D starting 02/03 thru 02/24/18 for 4 doses then monthly starting 03/26/18 Rivaroxaban (Xarelto) 10 Mg Tab 10 MG PO DAILY for Prevent Blood Clot for 7 Days, #7 TAB Continued Medications: Atorvastatin (Atorvastatin) 40 Mg Tab 40 MG PO HS for Cholesterol Management, #30 TAB Hydralazine HCl (Hydralazine HCl) 25 Mg Tablet 25 MG PO Q8HR for Blood Pressure Management, #90 TAB Metoprolol Tartrate (Metoprolol Tartrate) 25 Mg Tab 50 MG PO Q12HR for Blood Pressure Management, #60 TAB Paroxetine (Paroxetine) 20 Mg Tab 20 MG PO DAILY for Anxiety, #30 TAB Discontinued Medications: Rivaroxaban (Xarelto) 15 Mg Tab 15 MG PO DAILY for Blood Clot Prevention, TAB 0 Refills Carlos Croft MD Jan 24, 2018 13:21
[2018-02-03] MEDS ORDERED: CYANOCOBALAMIN 1000 MCG/ML VIAL IM SCH (09:00)
[2018-03-26] MEDS ORDERED: CYANOCOBALAMIN 1000 MCG/ML VIAL IM SCH (09:00)
== END 2018-01-24 15:06 | DRG 480 ==
LOC: NEPE 10:00 → NEDA 12:38 → N06B 17:16
PROVIDERS: ADMIT Internal Medicine; ATTEND Internal Medicine
PROC: 0QS704Z Reposition Left Upper Femur with Internal Fixation Device, Open Approach (ICD-10-PCS; principal; 2018-01-21 05:50)
PROC: 30233N1 Transfusion of Nonautologous Red Blood Cells into Peripheral Vein, Percutaneous Approach (ICD-10-PCS; 2018-01-22)
DX: S72.012A Unspecified intracapsular fracture of left femur, initial encounter for closed fracture (principal); W19.XXXA Unspecified fall, initial encounter; G93.49 Other encephalopathy; A41.9 Sepsis, unspecified organism; N39.0 Urinary tract infection, site not specified; B96.1 Klebsiella pneumoniae [K. pneumoniae] as the cause of diseases classified elsewhere; B95.4 Other streptococcus as the cause of diseases classified elsewhere; D62 Acute posthemorrhagic anemia; I48.91 Unspecified atrial fibrillation; Z86.73 Personal history of transient ischemic attack (TIA), and cerebral infarction without residual deficits; Z79.02 Long term (current) use of antithrombotics/antiplatelets; Z96.651 Presence of right artificial knee joint; I25.10 Atherosclerotic heart disease of native coronary artery without angina pectoris; E78.5 Hyperlipidemia, unspecified; K21.9 Gastro-esophageal reflux disease without esophagitis; I10 Essential (primary) hypertension; M19.90 Unspecified osteoarthritis, unspecified site; F41.9 Anxiety disorder, unspecified
CPT/HCPCS: 36430; 70450; 71045; 73502; 73700; 76000; 80048; 80053; 81001; 82140; 82607; 82948; 83605; 83735; 84207; 84425; 84443; 84484; 85014; 85018; 85025; 85610; 85730; 86077; 86592; 86850; 86870; 86900; 86901; 86920; 86922; 87040; 87077; 87086; 87186; 93005; 94150; 96361; 96374; C1713; J0690; J0696; J1170; J1580; J1644; J2270; J2370; J2543; J2710; J3010; J3370; J3420; J7030; J7040; J7120; P9016

== ENCOUNTER 2018-04-12 12:30 | Inpatient (IN) | payer OTHER, MEDICARE ==
[~2018-04-12] VITALS: Ht 165.1 cm; Wt 67.9 kg
[~2018-04-12 12:30] MED LIST changes: -ASPI-183 PO; -BACT800T5 PO; +CIPR250T52 PO; -IPRASOL INH; -LEVE500S NG; -OMEP20TA93 PO; -SENN1TAB PO; +WALKER WHEELS/F1 MIS
[2018-04-26] MEDS ORDERED: CHLORHEXIDINE GLUCONATE 2 % 1 PACK (2 CLOTHS) TOPICAL PRN (10:45)
[2018-04-26] MEDS ORDERED: SODIUM CHLORID 0.9% 500 ML IV PRN (10:45)
[2018-04-26] MEDS ORDERED: VANCOMYCIN 1000 MG/NS 250 ML (for <70 kg) IV SCH ×2 (10:45)
[2018-04-26] MEDS ORDERED: VANCOMYCIN 1 GM/200 ML PREMIX ON-CALL IV SCH (10:45)
[2018-04-26] MEDS ORDERED: POVIDONE IODINE 5% (ANTISEPSIS KIT) 4 APPLICATIONS EACH NARE PRN (10:45)
[2018-04-26] MEDS ORDERED: ceFAZolin 2 GM PREMIX 50 ML IV SCH (10:45)
[2018-04-26] MEDS ORDERED: METOPROLOL TARTRATE 25 MG TAB PO PRN (10:45)
[2018-04-26] MEDS ORDERED: CHLORHEXIDINE GLUCONATE 4% SOLN 120 ML BTL TOPICAL SCH (10:45)
[2018-04-26] MEDS ORDERED: LACTATED RINGER'S 1000 ML IV PRN (10:45)
[2018-04-26] MEDS ORDERED: ROPIVACAINE PERI-ARTICULAR INJECTION. P-ARTICULR SCH ×5 (11:00)
[2018-04-26] MEDS ORDERED: BUPIVACAINE HCL PF 0.5% 30 ML VIAL ONE (12:31)
[2018-04-26] MEDS ORDERED: DEXAMETHASONE SOD PHOS PF 10 MG/ML VIAL ONE (12:48)
[2018-04-26] MEDS ORDERED: BUPIVACAINE PF 0.75% DEX-WATER INJ 2 ML AMP ONE (13:10)
[2018-04-26] MEDS ORDERED: FAT EMULSION 20% INJ 0 ML ONE (13:11)
[2018-04-26 13:21] VITALS: PULSE 59
[2018-04-26] MEDS ORDERED: GENTAMICIN SULFATE 80 MG/2 ML VIAL ONE (13:28)
[2018-04-26] MEDS: hydrALAZINE HCL 25 MG TAB PO SCH ×2 (14:00→22:49)
[2018-04-26] MEDS ORDERED: ACETAMINOPHEN 1000 MG/100 ML 100 ML IV ONE (15:30)
[2018-04-26] MEDS ORDERED: PROPOFOL 500 MG/50 ML INJ 50 ML ONE (15:30)
--- NOTE | 2018-04-26 16:16 | PD.OP ---
cc: Wyatt Miguel MD; Adria Miguel MD Operative Report Malfunctioning right knee unicompartmental replacement arthroplasty. Status post fracture right tibial medial plateau with tibial component subsidence. Postoperative Diagnosis: Same Procedure: Revision right total knee replacement arthroplasty Surgeon: Adria Miguel Land Development Manager(s): Wyatt Miguel MD Operation and Findings: EBL: 50 cc INDICATION: This patient presents with a history of a previous right knee unicompartmental replacement arthroplasty. The patient fell within the last year sustaining a fracture of the medial tibial plateau and now has significant tibial subsidence. The patient now presents for surgical treatment. NOTE: Wyatt Reynoso MD was present for the entire surgical procedure as my teaching assistant. In my medical opinion that individual's skill and care was necessary for proper management of this patient. TOURNIQUET TIME: [] minutes COMPANY: [employer] FEMUR: Size 3, right, posterior stabilized TIBIA: Size 3, fixed-bearing PATELLA: 35 mm POLYETHYLENE INSERT: 10 mm PROCEDURE: This patient was brought the operating room and anesthetized in the supine position. The patient was positioned supine on the table. The tourniquet was placed about the thigh, and the leg was scrubbed with alcohol followed by Hibiclens followed by ChloraPrep and draped sterilely. A timeout was done, and antibiotics were given. After exsanguination the tourniquet was inflated to 250 mmHg. An anterior incision was made and a median parapatellar arthrotomy was performed. The patella was released laterally and subluxed allowing freehand cut of the patella which was then sized. A metal cap was placed over the exposed patellar surface for protection. A pilot boat operator hole was placed in the distal femur allowing a 6 valgus cut removing 10 mm from the distal femur. The initial anterior cut was partially made. The medial resurfacing arthroplasty was loosened with osteotomes. This was very carefully removed from the surrounding cement and bone. Very carefully in a retrograde fashion the femoral component was removed. The distal femoral cut was completed. Anterior posterior and chamfer cuts were made. By the nature of the cut, the posterior medial side did not need an augment. No distal augment was necessary. The posterior stabilize osteotomy was made. The attention was directed to the tibia. Retractors were positioned. The external alignment guide was used allowing the lateral tibia to be used as referencing guide and cut utilizing an oscillating saw taking care to avoid any injury to the surrounding soft tissues. There was a defect in the medial side. The medial component was loose and was removed without difficulty. This was sized properly. Trial reduction showed that the insert fit nicely. The patient had range of motion extension 0 flexion 125. A medial release was not necessary. The bony surfaces prepared. On the back table 2 packets of methylmethacrylate were mixed. Bone grafting of the medial tibia was necessary. We used bone from the distal femoral resection. The components were cemented. Excess cement was removed. The tourniquet let down and hemostasis was controlled. The final plastic insert was inserted. Range of motion was the same as previously noted. A drain was brought through a separate stab incision. A field block was used with local anesthesia for pain control. The arthrotomy was repaired with interrupted #1 Vicryl suture, subcutaneous tissue 2-0 Vicryl suture and skin with metallic rossi A sterile dressing was applied. Sponge counts, needle counts and instrument counts were all correct. The patient tolerated procedure well and was taken to recovery in satisfactory condition. FINDINGS: There was evidence of significant loosening of the tibial component. There is a fracture of the posterior medial tibia which allowed that to happen. This was curetted and bone grafting was placed into the medial tibial defect. The final solution appeared to be excellent. There was no complication that was appreciated. Adria Miguel MD Apr 26, 2018 16:16
[2018-04-26] MEDS ORDERED: MORPHINE SULFATE 8 MG/ML INJ IV PUSH PRN (16:45)
[2018-04-26] MEDS ORDERED: ALUMINUM/MAGNESIUM/SIMETH 30 ML CUP PO PRN (16:45)
[2018-04-26] MEDS ORDERED: Post-op Orders (for Pharmacy) XX ONE (16:45)
[2018-04-26] MEDS ORDERED: ACETAMINOPHEN/HYDROcodone 325 MG/5 MG TAB PO PRN ×2 (16:45)
[2018-04-26] MEDS ORDERED: ZOLPIDEM TARTRATE 5 MG TAB PO PRN (16:45)
[2018-04-26] MEDS ORDERED: MIDAZOLAM HCL 2 MG/2 ML VIAL ONE (16:55)
--- NOTE | 2018-04-26 16:59 | HHI.PR ---
Immediate Post Op Note Procedure Date: Apr 26, 2018 Pre Op Diagnosis: R Knee Failed Med UCA;Prox medial tibial plateau fx mal-union;progressive knee OA Post Op Diagnosis: Same Surgeon: Adria Miguel MD Computer Graphic Designer(s): Wyatt Miguel MD Procedure: R Rev TKR Complications: None Specimen(s) removed: None Estimated blood loss: <25cc Anesthesia: Regional Block, Spinal, Local Drains: Hemovac Patient to: PACU Patient Condition: Good Implant/Devices: SEE IMPLANT LOG (if applicable) Date/Time of Procedure: SEE SURGICAL CARE RECORD Wyatt Miguel MD Apr 26, 2018 16:58
[2018-04-26] MEDS ORDERED: ONDANSETRON ODT 4 MG TAB PO PRN (17:15)
--- NOTE | 2018-04-26 17:29 | RADRPT ---
EXAM DATE: 04/26/2018 5:26 PM EDT AGE/SEX: 78 years / Female INDICATIONS: Post op right knee. CLINICAL DATA: This is the patient's initial encounter. Patient reports that signs and symptoms have been present for 1 day and indicates a pain score of Nonresponsive. MEDICAL/SURGICAL HISTORY: Non-responsive. Abdominal aortic aneurysm repair. COMPARISON: No prior exams available for comparison. FINDINGS: Postsurgical features of right knee arthroplasty. The arthroplasty components are well-positioned and in anatomic alignment. Osseous structures are intact without significant acute fracture. Immediate p ostsurgical soft tissue changes including surgical drain in place. CONCLUSION: 1. Status post right knee arthroplasty in anatomic alignment without acute fracture. Electronically signed by: Eliezer Rivas MD 04/26/2018 5:28 PM EDT
[2018-04-26] MEDS ORDERED: DO NOT ADM ANY ANTICOAGULANT DRUGS PRN (17:30)
[2018-04-26] MEDS: LACTATED RINGER'S 1000 ML INJ 1,000 ML IV SCH (17:45)
[2018-04-26 20:15] VITALS: BP 138/66; PULSE 63; RESP 18; TEMP 97.2; O2SAT 97
[2018-04-26] MEDS: ATORVASTATIN 40 MG TAB PO SCH (22:50)
[2018-04-26] MEDS: METOPROLOL TARTRATE 25 MG TAB PO SCH (22:50)
[2018-04-27] VITALS (7 sets, daily range): BP systolic 103–132; BP diastolic 51–70; PULSE 64–88; RESP 16–18; TEMP 97.3–99.4; O2SAT 90–98
[2018-04-27] MEDS: LACTATED RINGER'S 1000 ML INJ 1,000 ML IV SCH ×2 (05:30→18:00)
[2018-04-27] MEDS: hydrALAZINE HCL 25 MG TAB PO SCH ×2 (06:00→22:00)
--- NOTE | 2018-04-27 06:48 | PD.ORT.PN ---
Subjective Subjective Remarks POD#1 R Rev TKR No c/o pain No SOB;no chest pain Objective Vitals Vital Signs Date Time Temp Pulse Resp B/P (MAP) Pulse Ox O2 Delivery O2 Flow Rate FiO2 04/27/18 00:00 97.3 68 18 108/51 (70) 95 04/26/18 20:15 97.2 63 18 138/66 (90) 97 04/26/18 19:30 97.9 60 16 106/59 (75) 98 Nasal Cannula 2 04/26/18 19:00 62 16 103/53 (70) 97 Nasal Cannula 2 04/26/18 18:30 60 16 113/64 (80) 97 Nasal Cannula 2 04/26/18 18:00 60 16 123/56 (78) 94 Nasal Cannula 2 04/26/18 17:45 62 16 118/57 (77) 95 Nasal Cannula 2 04/26/18 17:30 60 16 127/62 (83) 94 Nasal Cannula 2 04/26/18 17:15 74 16 128/59 (82) 96 Nasal Cannula 2 04/26/18 17:00 64 16 123/58 (79) 97 Nasal Cannula 2 04/26/18 16:45 97.5 68 16 147/93 (111) 97 Nasal Cannula 2 04/26/18 13:21 59 04/26/18 13:21 100 Nasal Cannula 2 04/26/18 11:26 98.6 60 16 148/63 (91) 95 I/O 04/26/18 04/26/18 04/26/18 04/27/18 04/27/18 04/27/18 07:00 15:00 23:00 07:00 15:00 23:00 Intake Total 2000 ml Output Total 26 ml Balance 1974 ml Intake IV Total 100 ml Other 1900 ml Output Stool Total 1 ml Estimated Blood Loss 25 ml # Voids 1 Imaging Last 24 hours Impressions Knee X-Ray 04/26/18 1641 Signed Impressions: CONCLUSION: 1. Status post right knee arthroplasty in anatomic alignment without acute fra cture. Objective Remarks N/V intact Neg ham's,no calf tenderness Assessment & Plan Assessment and Plan Ortho stable PT/Rehab Coumadin,TEDS,Sequentials for DVT prophylaxsis;in 2 weeks restart xarelto 20mg daily,d/c coumadin D/C to SNF on Wednesday Wyatt Miguel MD Apr 27, 2018 06:48
[2018-04-27 07:21] LABS: HEMATOCRIT 26.9 % (35.0-46.0); HEMOGLOBIN 8.7 GM/DL (11.6-15.3)
[2018-04-27 07:27] LABS: INTERNATIONAL NORMALIZED RATIO 1.1 RATIO
[2018-04-27] MEDS: PARoxetine HCL 20 MG TAB PO SCH (08:39)
[2018-04-27] MEDS: METOPROLOL TARTRATE 25 MG TAB PO SCH ×2 (08:40→21:20)
--- NOTE | 2018-04-27 11:53 | PD.CONS ---
[facility] By Wyatt Miguel Reason for Consult Opinion recommendations treatment patient's hypertension hyperlipidemia Primary Care Physician Avi Rogers M.D. Diagnoses: History of Present Illness 78-year-old white female with a history osteoarthritis, hypertension, hyperlipidemia who was had long-term history of right knee pain despite conservative treatment. She electively underwent a right total knee arthroplasty with orthopedic surgery, Dr. Miguel and has done well postoperatively. She states that she does not have a history of constipation. She denies a history of bloody stools or black tarry stools at home. Review of Systems Constitutional: DENIES: Fatigue, Fever, Chills, Change in appetite Endocrine: DENIES: Heat/cold intolerance Eyes: DENIES: Blurred vision, Eye pain, Vision loss Ears, nose, mouth, throat: DENIES: Hearing loss, Nasal discharge, Throat pain, Ear Pain, Sinus Pain Respiratory: DENIES: Cough, Shortness of breath Cardiovascular: DENIES: Chest pain, Palpitations, Dyspnea on Exertion, Lower Extremity Edema Gastrointestinal: DENIES: Abdominal pain, Black stools, Bloody stools, Constipation, Diarrhea, Nausea, Vomiting Genitourinary: DENIES: Dysuria Musculoskeletal: COMPLAINS OF: Joint pain (Right knee pain as described in HPI) , DENIES: Muscle aches, Stiffness Integumentary: DENIES: Rash Hematologic/lymphatic: DENIES: Bruising, Lymphadenopathy Immunologic/allergic: DENIES: Eczema Neurologic: DENIES: Headache, Localized weakness, Paresthesias Psychiatric: DENIES: Anxiety, Depression, Suicidal Ideation Past Family Social History Allergies: Coded Allergies: metronidazole (Verified Allergy, Unknown, HIVES, 04/11/18) Past Medical History Hypertension Hyperlipidemia TIA Osteoarthritis Anxiety GERD Past Surgical History Uterine sling Hysterectomy Reported Medications Atorvastatin 40 mg p.o. nightly Hydralazine 25 mg p.o. q. 8 Metoprolol 50 mg p.o. twice daily Paroxetine 20 mg p.o. daily Family History None per patient Social History Does not smoke cigarettes or drink alcohol Physical Exam Vital Signs Vital Signs Date Time Temp Pulse Resp B/P (MAP) Pulse Ox O2 Delivery O2 Flow Rate FiO2 04/27/18 08:00 97.8 64 16 121/57 (78) 95 04/27/18 04:00 97.6 68 18 103/56 (72) 96 04/27/18 00:00 97.3 68 18 108/51 (70) 95 04/26/18 20:15 97.2 63 18 138/66 (90) 97 04/26/18 19:30 97.9 60 16 106/59 (75) 98 Nasal Cannula 2 04/26/18 19:00 62 16 103/53 (70) 97 Nasal Cannula 2 04/26/18 18:30 60 16 113/64 (80) 97 Nasal Cannula 2 04/26/18 18:00 60 16 123/56 (78) 94 Nasal Cannula 2 04/26/18 17:45 62 16 118/57 (77) 95 Nasal Cannula 2 04/26/18 17:30 60 16 127/62 (83) 94 Nasal Cannula 2 04/26/18 17:15 74 16 128/59 (82) 96 Nasal Cannula 2 04/26/18 17:00 64 16 123/58 (79) 97 Nasal Cannula 2 04/26/18 16:45 97.5 68 16 147/93 (111) 97 Nasal Cannula 2 04/26/18 13:21 59 04/26/18 13:21 100 Nasal Cannula 2 Physical Exam GENERAL: This is a well-nourished, well-developed patient, in no apparent distress. SKIN: No rashes, ecchymoses or lesions. Cool and dry. HEAD: Atraumatic. Normocephalic. No temporal or scalp tenderness. EYES: Pupils equal round and reactive. Extraocular motions intact. No scleral icterus. No injection or drainage. ENT: Nose without bleeding, purulent drainage or septal hematoma. T NECK: Trachea midline. No JVD or lymphadenopathy. Supple, nontender, no meningeal signs. CARDIOVASCULAR: Regular rate and rhythm without murmurs, gallops, or rubs. RESPIRATORY: Clear to auscultation. Breath sounds equal bilaterally. No wheezes , rales, or rhonchi. GASTROINTESTINAL: Abdomen soft, non-tender, nondistended. No hepato-splenomegaly , or palpable masses. No guarding. MUSCULOSKELETAL: Extremities without clubbing, cyanosis, or edema. Right knee bandage clean dry intact NEUROLOGICAL: Awake and alert to person place time. Cranial nerves II through XII intact. Motor and sensory grossly within normal limits. Normal speech. Laboratory Laboratory Tests Test 04/27/18 05:38 Hemoglobin 8.7 Hematocrit 26.9 Prothrombin Time 11.0 Prothromb Time International Ratio 1.1 Result Diagram: 04/27/18 0538 Assessment and Plan Assessment and Plan 1. Status post operative day #1 total knee right arthroplastycontinue postoperative care, pain control, physical therapy per orthopedic surgery. 2. Hypertension, chronic essential continue home metoprolol 3. Hypertension, chronic continue home statin 4. Anxiety history continue paroxetine 5. DVT prophylaxis risks and benefits of anticoagulation discussed with patient today. Initiate Coumadin per orthopedic surgery thank you for this consultation Quita Serna MD Apr 27, 2018 11:53
[2018-04-27] MEDS: WARFARIN SOD 5 MG TAB PO SCH (16:00)
[2018-04-27] MEDS: ACETAMINOPHEN 500 MG CPLT PO PRN (21:20)
[2018-04-27] MEDS: ATORVASTATIN 40 MG TAB PO SCH (21:20)
[2018-04-28 04:50] VITALS: BP 121/56; PULSE 71; RESP 18; TEMP 98.6; O2SAT 95
[2018-04-28] MEDS: hydrALAZINE HCL 25 MG TAB PO SCH ×3 (06:00→21:40)
[2018-04-28] MEDS: LACTATED RINGER'S 1000 ML INJ 1,000 ML IV SCH ×2 (06:30→17:47)
--- NOTE | 2018-04-28 06:40 | PD.ORT.PN ---
Subjective Subjective Remarks POD #2 R Rev TKR No c/o pain No SOB;no chest pain Objective Vitals Vital Signs Date Time Temp Pulse Resp B/P (MAP) Pulse Ox O2 Delivery O2 Flow Rate FiO2 04/28/18 04:50 98.6 71 18 121/56 (77) 95 04/27/18 23:32 99.4 72 18 116/64 (81) 94 04/27/18 20:38 99.0 79 18 132/62 (85) 98 04/27/18 16:00 98.0 88 16 118/61 (80) 90 04/27/18 12:00 97.8 65 16 105/70 (82) 90 04/27/18 08:00 97.8 64 16 121/57 (78) 95 I/O 04/27/18 04/27/18 04/27/18 04/28/18 04/28/18 04/28/18 07:00 15:00 23:00 07:00 15:00 23:00 Intake Total 600 ml 600 ml 360 ml Balance 600 ml 600 ml 360 ml Intake Oral 600 ml 600 ml 360 ml # Voids 3 2 3 # Bowel Movements 1 0 Result Diagram: 04/27/18 0538 Imaging Last 24 hours Impressions Knee X-Ray 04/26/18 1641 Signed Impressions: CONCLUSION: 1. Status post right knee arthroplasty in anatomic alignment without acute fra cture. Objective Remarks N/V intact Neg ham's,no calf tenderness Dressings dry Assessment & Plan Assessment and Plan Ortho stable PT/Rehab Coumadin,TEDS,Sequentials for DVT prophylaxsis; in 2 weeks restart xarelto 20mg daily,d/c coumadin D/C to SNF tomorrow Wyatt Miguel MD Apr 28, 2018 06:40
[2018-04-28] MEDS: METOPROLOL TARTRATE 25 MG TAB PO SCH ×2 (07:54→21:40)
[2018-04-28] MEDS: PARoxetine HCL 20 MG TAB PO SCH (07:54)
[2018-04-28] MEDS: ACETAMINOPHEN 500 MG CPLT PO PRN ×2 (07:54→14:02)
[2018-04-28 08:00] VITALS: BP 129/78; PULSE 78; RESP 16; TEMP 99.3; O2SAT 95
--- NOTE | 2018-04-28 09:27 | HHI.PR ---
Subjective Remarks Patient complained of right knee pain. No other complaints at this time. Objective Vitals Vital Signs Date Time Temp Pulse Resp B/P (MAP) Pulse Ox O2 Delivery O2 Flow Rate FiO2 04/28/18 04:50 98.6 71 18 121/56 (77) 95 04/27/18 23:32 99.4 72 18 116/64 (81) 94 04/27/18 20:38 99.0 79 18 132/62 (85) 98 04/27/18 16:00 98.0 88 16 118/61 (80) 90 04/27/18 12:00 97.8 65 16 105/70 (82) 90 I/O 04/27/18 04/27/18 04/27/18 04/28/18 04/28/18 04/28/18 07:00 15:00 23:00 07:00 15:00 23:00 Intake Total 600 ml 600 ml 360 ml Balance 600 ml 600 ml 360 ml Intake Oral 600 ml 600 ml 360 ml # Voids 3 2 3 # Bowel Movements 1 0 Result Diagram: 04/27/18 0538 Objective Remarks GENERAL: This is a well-nourished, well-developed patient, in no apparent distress. CARDIOVASCULAR: Regular rate and rhythm RESPIRATORY: Clear to auscultation. Breath sounds equal bilaterally. No wheezes , rales, or rhonchi. MUSCULOSKELETAL: Right knee bandage clean dry and intact NEURO: Alert & Oriented x4 to person, place, time, situation. Moves all ext x4 A/P Assessment and Plan 1. Status post operative day #2 total knee right arthroplasty continue postoperative care, pain control, physical therapy per orthopedic surgery. 2. Hypertension, chronic essential overall blood pressure controlled -continue home metoprolol 3. Hyperlipidemia, chronic continue home statin 4. Anxiety history continue paroxetine 5. DVT prophylaxis, INR Coumadin per orthopedic surgery, and INR 1.1 today Discharge Planning To long term facility when cleared by orthopedic surgery Quita Serna MD Apr 28, 2018 09:27
[2018-04-28 12:00] VITALS: BP 137/63; PULSE 64; RESP 18; TEMP 97.6; O2SAT 95
[2018-04-28 12:11] LABS: INTERNATIONAL NORMALIZED RATIO 1.1 RATIO; PROTHROMBIN TIME - PATIENT 11.3 SEC (9.8-11.6)
[2018-04-28 15:16] VITALS: BP 153/72; PULSE 76; RESP 18; TEMP 98.4; O2SAT 95
[2018-04-28] MEDS: WARFARIN SOD 5 MG TAB PO SCH (16:00)
[2018-04-28] MEDS ORDERED: WALKER WHEELS/F1 MIS (16:17)
[2018-04-28 19:38] VITALS: BP 151/88; PULSE 95; RESP 18; TEMP 98.3; O2SAT 97
[2018-04-28] MEDS: ATORVASTATIN 40 MG TAB PO SCH (21:40)
[2018-04-28 23:35] VITALS: BP 141/79; PULSE 101; RESP 18; TEMP 97.4; O2SAT 95
[2018-04-29] MEDS: ACETAMINOPHEN 500 MG CPLT PO PRN (03:01)
[2018-04-29 03:43] VITALS: BP 112/56; PULSE 67; RESP 18; TEMP 98.4; O2SAT 97
[2018-04-29] MEDS: hydrALAZINE HCL 25 MG TAB PO SCH (06:00)
--- NOTE | 2018-04-29 08:02 | PD.ORT.PN ---
Subjective Subjective Remarks No new complaints. Knee pain but controlled on PO meds. Ready for d/c today. No new CP or SOB. Objective Vitals Vital Signs Date Time Temp Pulse Resp B/P (MAP) Pulse Ox O2 Delivery O2 Flow Rate FiO2 04/29/18 03:43 98.4 67 18 112/56 (74) 97 04/28/18 23:35 97.4 101 18 141/79 (99) 95 04/28/18 19:38 98.3 95 18 151/88 (109) 97 04/28/18 18:52 Room Air 04/28/18 15:16 98.4 76 18 153/72 (99) 95 04/28/18 12:00 97.6 64 18 137/63 (87) 95 04/28/18 08:00 99.3 78 16 129/78 (95) 95 I/O 04/28/18 04/28/18 04/28/18 04/29/18 04/29/18 04/29/18 07:00 15:00 23:00 07:00 15:00 23:00 Intake Total 360 ml 480 ml Balance 360 ml 480 ml Intake Oral 360 ml 480 ml # Voids 3 3 4 # Bowel Movements 0 1 1 0 Result Diagram: 04/27/18 0538 Other Results Laboratory Tests Test 04/28/18 11:15 Prothromb Time International Ratio 1.1 RATIO Prothrombin Time 11.3 SEC (9.8-11.6) Imaging Last 24 hours Impressions Knee X-Ray 04/26/18 1641 Signed Impressions: CONCLUSION: 1. Status post right knee arthroplasty in anatomic alignment without acute fra cture. Objective Remarks Laying in bed NAD AAO RLE Knee dressing c/d/i, no new drainage, no erythema +motor at, +sens, +nvi neg homans Assessment & Plan Ortho Post Op Day #: 3 Problem List: Assessment and Plan pod#3 s/p Rev R TKA Ortho stable. Ok to d/c to snf today. INR not performed today. Per Dr. Adria Miguel - will write 3mg daily. RN to call us with INR results later. Dressings as instructed. PT - WBAT. Precautions as written. Transition back to Xarelto 20mg in 2 weeks. Ice to knee bid. Follow up with Dr. Wyatt Miguel as scheduled. Renu Lopez Apr 29, 2018 08:02
[2018-04-29] MEDS ORDERED: WARF-58 PO (08:04)
[2018-04-29] MEDS ORDERED: HYDR-3516 PO (08:06)
[2018-04-29 08:27] VITALS: BP 120/57; PULSE 64; RESP 18; TEMP 97.9; O2SAT 92; O2SAT 97
--- NOTE | 2018-04-29 09:35 | HHI.PR ---
Subjective Remarks Patient states her pain is controlled. Objective Vitals Vital Signs Date Time Temp Pulse Resp B/P (MAP) Pulse Ox O2 Delivery O2 Flow Rate FiO2 04/29/18 08:27 97.9 64 18 120/57 (78) 97 04/29/18 03:43 98.4 67 18 112/56 (74) 97 04/28/18 23:35 97.4 101 18 141/79 (99) 95 04/28/18 19:38 98.3 95 18 151/88 (109) 97 04/28/18 18:52 Room Air 04/28/18 15:16 98.4 76 18 153/72 (99) 95 04/28/18 12:00 97.6 64 18 137/63 (87) 95 I/O 04/28/18 04/28/18 04/28/18 04/29/18 04/29/18 04/29/18 07:00 15:00 23:00 07:00 15:00 23:00 Intake Total 360 ml 480 ml Balance 360 ml 480 ml Intake Oral 360 ml 480 ml # Voids 3 3 4 # Bowel Movements 0 1 1 0 Result Diagram: 04/27/18 0538 Other Results INR pending Objective Remarks GENERAL: This is a well-nourished, well-developed patient, in no apparent distress. CARDIOVASCULAR: Regular rate and rhythm RESPIRATORY: Clear to auscultation. Breath sounds equal bilaterally. No wheezes , rales, or rhonchi. MUSCULOSKELETAL: Right knee bandage clean dry and intact NEURO: Alert & Oriented x4 to person, place, time, situation. Moves all ext x4 A/P Assessment and Plan 1. Status post operative day #3 total knee right arthroplasty continue postoperative care, pain control, physical therapy per orthopedic surgery. 2. Hypertension, chronic essential overall blood pressure controlled -continue home metoprolol 3. Hyperlipidemia, chronic continue home statin 4. Anxiety history continue paroxetine 5. DVT prophylaxis, INR Coumadin per orthopedic surgery, and INR pending today Discharge Planning To custodial facility when cleared by orthopedic surgery Quita Serna MD Apr 29, 2018 09:35
[2018-04-29 10:12] LABS: INTERNATIONAL NORMALIZED RATIO 1.2 RATIO; PROTHROMBIN TIME - PATIENT 11.9 SEC (9.8-11.6)
== END 2018-04-29 10:49 | DRG 467 ==
LOC: EDSTATUS 12:30 → HSDI 04-26 09:52 → N06A 04-26 19:52
PROVIDERS: ADMIT Orthopaedic Surgery Orthopaedic Surgery of the Spine; ATTEND Orthopaedic Surgery Orthopaedic Surgery of the Spine
PROC: 0SRC0J9 Replacement of Right Knee Joint with Synthetic Substitute, Cemented, Open Approach (ICD-10-PCS; 2018-04-26)
PROC: 3E0T3BZ Introduction of Anesthetic Agent into Peripheral Nerves and Plexi, Percutaneous Approach (ICD-10-PCS; 2018-04-26)
PROC: 0SPC0JZ Removal of Synthetic Substitute from Right Knee Joint, Open Approach (ICD-10-PCS; principal; 2018-04-26 13:46)
DX: T84.032A Mechanical loosening of internal right knee prosthetic joint, initial encounter (principal); S82.131 Displaced fracture of medial condyle of right tibia; I10 Essential (primary) hypertension; K21.9 Gastro-esophageal reflux disease without esophagitis; E78.5 Hyperlipidemia, unspecified; F41.9 Anxiety disorder, unspecified; W19.XXXD Unspecified fall, subsequent encounter; Z86.73 Personal history of transient ischemic attack (TIA), and cerebral infarction without residual deficits
CPT/HCPCS: 73560; 85014; 85018; 85610; 86077; 86850; 86870; 86900; 86901; 86920; 86922; 94150; C1776; J0131; J0690; J0735; J1100; J1580; J1885; J2250; J2795; J3370; J7120; L1830